=== PATIENT | male | born 1960 | race Caucasian/White ===

== ENCOUNTER 2020-11-21 10:14 | Outpatient (CLI) | payer BC, SELFPAY ==
--- NOTE | 2020-11-21 15:17 | ONC CON_ITS ---
Dr. Gee New Patient Note Patient: Manuel Roque Unit #: [id number]: 1960 Dicatated By: Tarun Gee M.D.Date of Visit: Nov 21, 2020 Onc MED New Patient/Consult Referring Physician: Dr. RINKU HINDS M.D. Chief Complaint: Lung cancer. History of Present Illness: This is a 60-year-old man with recently diagnosed adenocarcinoma involving the upper lobe of the right lung. On 08/02/2020 he was admitted to [facility] with non-ST elevation myocardial infarction. He underwent coronary angioplasty/placement. His evaluation at that time included CT pulmonary angiogram which showed a 1.5 cm nodule in the apex of the right upper lobe. An additional 6 mm nodule was noted in the right middle lobe. He underwent CT directed needle biopsy of the right lung nodule on 11/07/2020. He experienced no complications with the procedure. Pathology showed moderately differentiated adenocarcinoma consistent with lung primary. Immunohistochemical stains showed positive staining for CK7, TTF-1, and Napsin A. By IHC, 10% of tumor cells showed positive expression for PD-L1 (22C3). On further pathologic analysis, EGFR and BRAF V600 mutations were not identified, and the ROS1 gene rearrangement also was not identified. The result for the ALK gene rearrangement is still pending. He has been feeling pretty good generally. Overall he has slowed down a lot, but he continues to work and he has maintained normal activity. ECOG score is 0. He has good appetite and his weight has been stable. He does not have fever or night sweats. He does have some shortness of breath. He has cough productive of yellow mucus. He has not had chest pain or hemoptysis. He currently has no GI complaints. Bladder function remains adequate, though he says it is sometimes difficult to start voiding. He has no significant joint or bone pain. He does not complain of headache. He sometimes has dizziness, that has improved since his coronary stent procedure. He has no numbness/paresthesia or other focal neurologic symptoms. Past Medical History: His medical history includes chronic obstructive pulmonary disease, coronary artery disease, and hyperlipidemia. Past Surgical History: He underwent CT directed needle biopsy of right lung nodule on . He underwent coronary angioplasty/stent placement on 08/02/2020. His only other surgery was an excision of skin cancer from the left ear. Medications: Adult Aspirin EC Low Strength (81 mg) Tablet, enteric coated Oral daily, Atorvastatin Calcium (40 mg) Tablet Oral daily, Brilinta (90 mg) Tablet Oral b.i.d., Metoprolol Tartrate (12.5 mg) Tablet Oral daily, Multi For Him 50+ Tablet Oral daily Allergies: No Known Allergies. 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 He has a history of smoking 1 pack of cigarettes daily for 45 years. He has now cut down to 1/2 pack/day. He has had just occasional alcohol use. Family History: Father in a motor vehicle accident. Mother with heart disease at age 81. A 62-year-old brother has heart disease. Two sisters are in good health. Review Of Symptoms: Constitutional - He says his energy is about the same. He has slowed down a lot, but he still has normal activity. Appetite is good and his weight is stable. He has no fever or night sweats. ECOG score is 0, Eyes - No change in vision, ENMT - No hearing loss or tinnitus. He has some sinus congestion/drainage. No mouth sores. No sore throat or difficulty swallowing, Hematologic/Lymphatic - He does tend to bruise easily, Respiratory - He has some shortness of breath. He has cough productive of yellow mucus. No pleuritic pain or hemoptysis, Cardiovascular - No angina pain. No palpitations, Gastrointestinal - No nausea or vomiting. No heartburn or acid reflux. No diarrhea or constipation. No blood in the stool or black stools, Genitourinary (M) - No dysuria or hematuria. No urinary frequency. He sometimes has difficulty getting started. No urgency or incontinence, Musculoskeletal - No joint or bone pain, Integumentary - No skin rash or other skin changes, Neurologic - No headache. He sometimes has dizziness, but that has improved since his cardiac stent procedure. No numbness or tingling. No other focal neurologic symptoms, Psychiatric - He says he is always been nervous, but otherwise no anxiety or depression. No insomnia. Vital Signs: Performed on Nov 21, 2020 11:34: 0, 0, 0.00 (LOW), sq.m, 99 %, 59 /min (LOW), 16 /min, 117/70 mm(hg), 99.2 F (HIGH), and 158 lbs (HIGH). Physical Examination: Constitutional - He looks pretty good generally, Eyes - Sclerae nonicteric. Conjunctivae clear, ENMT - There is a surgical defect in the pinna of the left ear. There are no lesions noted in the oral cavity, Neck - No mass or thyromegaly, Hematologic/Lymphatic - No cervical, clavicular, or axillary adenopathy, Respiratory - Lungs are clear with diminished air movement bilaterally, Cardiovascular - Heart rhythm is regular. There is no murmur, gallop, or rub noted, Abdomen - Soft and non-tender. Liver and spleen are not enlarged. There is no abdominal mass or ascites noted and there is no inguinal adenopathy, Back/Spine - No spine or CVA tenderness noted, Extremities - No edema. Dorsalis pedis pulses are palpable bilaterally, Integumentary - No rashes. No suspicious skin lesions noted, Neurologic - No focal neurologic deficits noted. Problem List: 1. Moderately differentiated adenocarcinoma involving the upper lobe of the right lung. The diagnosis was confirmed by CT directed needle biopsy of right apical lung mass on 11/07/2020. 2. COPD. 3. Hyperlipidemia. 4. Coronary artery disease with history of non-ST elevation myocardial infarction requiring coronary angioplasty/stent placement on 08/02/2020. 5. He has a history of skin cancer excision from the left ear. Problems Addressed with this Encounter and Plan: 1. Moderately differentiated adenocarcinoma involving the upper lobe of the right lung. The diagnosis was confirmed by CT directed needle biopsy of right apical lung mass on 11/07/2020. He has not completed staging, but thus far it appears that he may have localized, stage IA2 disease (T1b, N0, M0). On my review of the CT scan, the lesion is in the apex of the right lung, but it does appear to be potentially resectable. As such, he will be scheduled now for staging PET/CT, and he also will need complete pulmonary function studies, as he does appear to have significant underlying COPD. We can then determine whether he is an appropriate candidate for surgical resection. If not, the lesion may be amenable to SBRT. 2. I did review the CT images with the patient and his . In addition to the lung nodule, the study does show significant COPD changes, and we also discussed the fact that it is imperative now that he stop smoking. Signed By: Tarun Gee M.D. <<Signature on File>>
== END 2020-11-21 10:15 | disposition home or self-care (01) ==
LOC: ONCMED 10:18
PROVIDERS: PCP Family Medicine; Visit Provider Internal Medicine Medical Oncology
DX: C34.11 Malignant neoplasm of upper lobe, right bronchus or lung (principal); J44.9 Chronic obstructive pulmonary disease, unspecified; F17.210 Nicotine dependence, cigarettes, uncomplicated; Z85.828 Personal history of other malignant neoplasm of skin
CPT/HCPCS: 99205

== ENCOUNTER → 2020-12-06 11:45 | Outpatient (BNVA) | payer BC, SELFPAY | PROVIDERS: PCP Family Medicine; Visit Provider Internal Medicine Medical Oncology | DX: Z01.811 Encounter for preprocedural respiratory examination (principal); Z20.822 Contact with and (suspected) exposure to COVID-19 | CPT/HCPCS: 87635 ==

== ENCOUNTER 2020-12-11 10:06 | Outpatient (CLI) | payer BC, SELFPAY ==
--- NOTE | 2020-12-11 10:48 | PFTS_ITS ---
Date of Study:12/11/20 Date of Dictation: MECHANICS: Forced vital capacity (FVC) is normal. Forced expiratory volume in one second (FEV1) is normal. FEV1/FVC is normal. FLOW VOLUME LOOP: Mild scooping at low lung volumes LUNG VOLUMES: Total lung capacity (TLC) is normal. Residual volume (RV) is normal. DIFFUSING CAPACITY FOR CARBON MONOXIDE: Normal. INTERPRETATION: The pulmonary function tests are normal. MTDD
== END 2020-12-11 10:07 | disposition home or self-care (01) ==
LOC: RT 10:07
PROVIDERS: PCP Family Medicine; Visit Provider Internal Medicine Medical Oncology
DX: C34.11 Malignant neoplasm of upper lobe, right bronchus or lung (principal)
CPT/HCPCS: 94010; 94726; 94729

== ENCOUNTER 2021-01-01 15:32 | Outpatient (CLI) | payer BC, SELFPAY ==
--- NOTE | 2021-01-01 18:34 | ONC FU_ITS ---
Dr. Gee Patient Follow-Up Note Patient: Manuel Roque Unit #: [id number]: 1960 Dicatated By: Tarun Gee M.D.Date of Visit:Jan 01, 2021 Onc Med Follow-up/Prog Note Chief Complaint: Lung cancer. History of Present Illness: This is a 60-year-old man with recently diagnosed adenocarcinoma involving the upper lobe of the right lung. On 08/02/2020 he was admitted to [facility] with non-ST elevation myocardial infarction. He underwent coronary angioplasty/placement. His evaluation at that time included CT pulmonary angiogram which showed a 1.5 cm nodule in the apex of the right upper lobe. An additional 6 mm nodule was noted in the right middle lobe. He underwent CT directed needle biopsy of the right lung nodule on 11/07/2020. He experienced no complications with the procedure. Pathology showed moderately differentiated adenocarcinoma consistent with lung primary. Immunohistochemical stains showed positive staining for CK7, TTF-1, and Napsin A. By IHC, 10% of tumor cells showed positive expression for PD-L1 (22C3). On further pathologic analysis, EGFR and BRAF V600 mutations were not identified, and the ROS1 gene rearrangement also was not identified. The result for the ALK gene rearrangement has not been reported. I had seen him initially on 11/21/2020. He had further evaluation with PET/CT on 11/29/2020. It showed an FDG avid spiculated nodule in the right apex measuring 1.6 x 1.3 cm, SUV 4.6, consistent with primary malignancy. Subcentimeter noncalcified pulmonary nodules were too small to characterize. FDG positive lymph nodes were noted in the right paratracheal, subaortic, and subcarinal territories. These were felt to be suspicious for metastatic nodes, though size and SUVs were not reported. There were no other areas of abnormal uptake. His pulmonary function studies on 12/11/2020 were normal. The FEV1 was 103% of predicted. He does report having some fatigue and some shortness of breath, but overall he feels good generally. His medical illnesses include hyperlipidemia, coronary artery disease, and COPD. He has a history of smoking 1 pack of cigarettes daily for 45 years. He has cut down now. Medications: Adult Aspirin EC Low Strength (81 mg) Tablet, enteric coated Oral daily, Atorvastatin Calcium (40 mg) Tablet Oral daily, Brilinta (90 mg) Tablet Oral b.i.d., Metoprolol Tartrate (12.5 mg) Tablet Oral daily, Multi For Him 50+ Tablet Oral daily Allergies: No Known Allergies. Vital Signs: Performed on Jan 01, 2021 15:46 Height - 155.6 in Weight - 61 lbs (LOW) BSA - 2.25 sq.m BMI - 1.77 (LOW) Temperature - 98.0 F (LOW) Pulse - 61 /min Respiration - 17 /min BP - 126/83 mm(hg) O2 Sat - 96 % Pain - 0 Problem List: 1. Moderately differentiated adenocarcinoma involving the upper lobe of the right lung. The diagnosis was confirmed by CT directed needle biopsy of right apical lung mass on 11/07/2020. 2. COPD. 3. Hyperlipidemia. 4. Coronary artery disease with history of non-ST elevation myocardial infarction requiring coronary angioplasty/stent placement on 08/02/2020. 5. He has a history of skin cancer excision from the left ear. Problems Addressed with this Encounter and Plan: Patient with moderately differentiated adenocarcinoma involving the upper lobe of the right lung. The diagnosis was confirmed by CT directed needle biopsy of right apical lung mass on 11/07/2020. On further pathologic analysis there were no actionable mutations identified. The tumor showed positive PD-L1 22C3 expression (10%). His staging PET/CT showed FDG avid spiculated nodule at the right lung apex measuring 1.6 x 1.3 cm, SUV 4.6. Bilateral subcentimeter pulmonary nodules are too small to characterize. FDG positive mediastinal lymph nodes were felt to be suspicious for metastatic involvement. There were no areas of abnormal uptake on that study. His pulmonary functions were normal. While the PET/CT findings are somewhat suspicious for mediastinal lymph node involvement, which would make him an operable, it is a nonspecific finding and it does need to be confirmed pathologically. As such, I am going to have the case presented at tumor board tomorrow. My expectation is that we will proceed with mediastinal lymph node sampling and possible resection. However, if the lymph nodes are positive, he would then be an appropriate candidate for chemoradiation. Signed By: Tarun Gee M.D. <<Signature on File>>
== END 2021-01-01 15:33 | disposition home or self-care (01) ==
LOC: ONCMED 15:35
PROVIDERS: PCP Family Medicine; Visit Provider Internal Medicine Medical Oncology
DX: C34.11 Malignant neoplasm of upper lobe, right bronchus or lung (principal); R93.89 Abnormal findings on diagnostic imaging of other specified body structures; R91.8 Other nonspecific abnormal finding of lung field; J44.9 Chronic obstructive pulmonary disease, unspecified; F17.210 Nicotine dependence, cigarettes, uncomplicated; E78.5 Hyperlipidemia, unspecified; I25.10 Atherosclerotic heart disease of native coronary artery without angina pectoris; I25.2 Old myocardial infarction; Z85.828 Personal history of other malignant neoplasm of skin
CPT/HCPCS: 99214

== ENCOUNTER → 2021-01-28 11:55 | Outpatient (BNVA) | payer BC, SELFPAY | PROVIDERS: PCP Family Medicine; Visit Provider Thoracic Surgery (Cardiothoracic Vascular Surgery) | DX: R91.8 Other nonspecific abnormal finding of lung field (principal); Z20.822 Contact with and (suspected) exposure to COVID-19 | CPT/HCPCS: 87635 ==

== ENCOUNTER 2021-02-02 05:35 | Day surgery (SDC) | payer BC, SELFPAY ==
[2021-01-28 11:02] VITALS: BMI 22.2
--- NOTE | 2021-01-28 11:37 | ANES.PREANE2 ---
Pre-Anesthetic Assessment Pre-Anesthetic Assessment: Height/Weight: Height 1.78 m Weight 70.307 kg Preop Diagnosis: Lung Adenocarcinoma/mediastinal adenopathy Proposed Procedure: Operation Date: 02/02/21 09:10 Proposed Procedures p Bronchoscopy(Not Applicable) - Zhang Albert MD Familial anesthetic complications: None Social: Social History: Tobacco and No alcohol Exam: Pre-Anes Outpt Exam: alert, oriented x 3, clear to auscultation bilaterally and regular rate & rhythm Airway: Cervical ROM: WNL MP: 3 Dentition: Other (missing teeth poor dentition) Pulmonary: Pulmonary: COPD Comments: Lung cancer CV/HEM: CV/HEM: [place] (July 2020 - placed stent, supposed to be on blood thinners for one year) Comments: Surgeon aware of stent placement in july Anesthetic Plan: ASA status: 3 Anesthesia: General Risk of > 500 ml blood loss (7ml/kg in children): No PFSH Anesthesia PFSH: Family History Brother CAD (coronary artery disease) Hypertension Mother Stroke Denies family history of Diabetes Cancer Social History Smoking and tobacco status: current every day smoker cigarettes Packs smoked per day: 1 Years cigarettes smoked: 48 Alcohol intake: current Alcohol intake frequency: holidays/special occasions only Data Anesthesia Cardiac Studies: No Data to Display
[2021-01-28 11:58] LABS: Basophils # 0.1 10^3/uL (0.0-0.1); Basophils % 0.8 %; Eosinophils # 0.2 10^3/uL (0.0-0.8); Eosinophils % 2.4 %; Hematocrit 47.3 % (42.0-52.0); Hemoglobin 15.5 g/dL (11.7-16.6); Lymphocytes # 1.6 10^3/uL (0.8-4.8); Lymphocytes % 21.7 %; Mean Corpuscular HGB Conc 32.8 g/dL (30.0-36.0); Mean Corpuscular Volume 88.4 fL (80-94); Mean Platelet Volume 10.5 fL (7.4-10.4); Monocytes # 0.5 10^3/uL (0.2-0.9); Monocytes % 6.8 %; Neutrophils # 4.88 10^3/uL (1.8-7.7); Nucleated Red Blood Cells % 0 %; Platelet Count 203 10^3/cmm (130-400); Red Blood Count 5.35 10^6/uL (4.1-5.3); Red Cell Distribution Width 14.9 % (12.1-15.1); White Blood Count 7.2 10^3/uL (4.0-10.0)
[2021-01-28 12:44] LABS: Add Urine Microscopic? NO; Bilirubin Urine Neg (Negative); Blood Urine Neg (Negative); Charge for UA Resulting for Rev; Glucose Urine UA Norm (Normal); Ketones Urine Negative (Negative); Leukocyte Esterase Urine Negative (Negative); Nitrate Urine Negative (Negative); Protein Urine Neg (Negative); Specific Gravity, Urine 1.005 (1.005-1.030); Urine Appearance Clear (CLEAR); Urine Color Straw (Yellow); Urobilinogen Urine Norm (Negative); pH Urine 7 (5-7)
[2021-01-28 13:30] LABS: Anion Gap 14.3 (5-19); Blood Urea Nitrogen 14 mg/dL (8-23); Carbon Dioxide 27 mmol/L (22-29); Chloride 103 mmol/L (98-107); Glomerular Filtration Rate 98.3 mL/min (90-130); Glucose 102 mg/dL (65-115); Osmolality Calculated 291 mOsm/kg (285-295); Potassium 4.3 mmol/L (3.5-5.1); Sodium 140 mmol/L (136-145)
[2021-01-28 16:00] LABS: INR 0.95 (0.8-1.2)
[2021-02-02] VITALS (8 sets, daily range): BP systolic 109–134; BP diastolic 50–78; PULSE 48–57; RESP 14–18; TEMP 36.2–36.5; O2SAT 94–99
--- NOTE | 2021-02-02 05:55 | ECG_ITS ---
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 Measurements Intervals Johnson Rate: 50 P: 76 CT: 176 QRS: 57 QRSD: 102 T: 44 QT: 418 QTc: 383 Interpretive Statements SINUS BRADYCARDIA No previous ECG available for comparison Electronically Signed On 02-04-2021 8:05:39 CDT by aHir Mujica M.D. [id number]
--- NOTE | 2021-02-02 06:30 | W.PM.OPSUD ---
Surgery/Procedure H&P Update DATE OF PROCEDURE: February 02, 2021 DATE H&P PERFORMED: 01/16/21 H&P UPDATE INFORMATION: I have reviewed H&P completed within last 30 days, I have examined patient prior to procedure and No changes to prior documentation PREOP DIAGNOSIS: Lung Adenocarcinoma/mediastinal adenopathy PRIMARY INDICATION FOR PROCEDURE: Biopsy-proven adenocarcinoma right upper lobe with increased PET scan activity and a subcarinal, subaortic, and right paratracheal lymph nodes. Long history of continued tobacco use. I discussed at length with Mr. Roque and his my recommendation for bronchoscopy and mediastinoscopy, particularly to attempt biopsy of the right paratracheal lymph node. My concern for mediastinal involvement was frankly discussed. If these biopsies eventually returned negative on final report, I do think consideration should be made to consider transbronchial biopsy of the subcarinal region and would refer to our pulmonary colleagues, to consider EBUS and biopsy. The activity in this mediastinal region is of such prominence and I think it would be important to attempt to absolutely rule out involvement prior to consideration for pulmonary resection. I do believe attempt with the largest volume of lymphoid biopsy would be through our current plans for mediastinoscopy today. Rationale for my process was discussed with Mr. Roque and his and they wish to proceed and are in agreement. Details of risk the procedure were frankly discussed including potential risk for pneumothorax or major bleeding requiring thoracotomy or sternotomy and attempt to control. Appropriate consents have been provided for review and signature. PLANNED PROCEDURE: Operation Date: 02/02/21 07:10 Proposed Procedures p Bronchoscopy(Not Applicable) - Zhang Albert MD s Mediastinoscopy(Not Applicable) - Zhang Albert MD
[2021-02-02] MEDS: sodium chloride 0.9% 1,000 ML 30 ML IV (06:38)
--- NOTE | 2021-02-02 06:53 | P.ANESUD_ITS ---
Pre-Anesthetic Update Pre-Anesthetic Assessment: Date of Surgery/Procedure: 02/02/21 Preop Kerry gnosis: Lung Adenocarcinoma/mediastinal adenopathy Proposed Procedure: Operation Date: 02/02/21 07:10 Proposed Procedures p Bronchoscopy(Not Applicable) - Zhang Albert MD s Mediastinoscopy(Not Applicable) - Zhang Albert MD Any changes to Pre-Anesthetic Assessment?: No Last Intake: Intake Last Liquid Date 02/01/21 Last Liquid Time 21:00 Last Solid Date 02/01/21 Last Solid Time 21:00 Vitals: Temperature 97.2 F L 02/02/21 06:09 Temperature Source Temporal Artery S can 02/02/21 06:09 Pulse Rate 56 L 02/02/21 06:09 Respiratory Rate 18 02/02/21 06:09 Blood Pressure 134/78 02/02/21 06:09 Blood Pressure Alejandra n 96 02/02/21 06:09 Pulse Oximetry 98 02/02/21 06:09 Oxygen Delivery Me thod 02/02/21 06:13 Exam: Pre-Anes Outpt Exam: alert, oriented x 3 and regular rate & rhythm Additional Exam Findings (including area of procedure): BBS decreased, occ. rhonchi Cardiac Studies: No Data to Display
[2021-02-02] MEDS: cetacaine Spray 5 gm Can 1 SPRAY TOPICAL (08:38)
--- NOTE | 2021-02-02 09:45 | PM.OP ---
Operative Report Date of procedure: February 02, 2021 Pre-op Diagnosis: Lung Adenocarcinoma/mediastinal adenopathy Post-op diagnosis: same Procedure Done: 1. Flexible diagnostic bronchoscopy 2. Mediastinoscopy lymph node biopsies in the precarinal, station 4R, and station 2R regions Specimens removed/disposition: Lymph node specimens from station 4R, station 2R, and precarinal region Surgeon: Zhang Albert Anesthesia: General Complications: None: Equal breath sounds postoperatively. Post procedure chest x-ray pending Condition: stable Disposition: PACU Brief History: Mr. Roque is a pleasant 60-year-old gentleman with a prior CT directed needle biopsy of a right upper lobe lung lesion which is returned adenocarcinoma. This was performed at outside institution. Subsequent PET scan revealed increased activity in this lesion as well as in mediastinal adenopathy including right hilar, pericarinal, station 4R, and subaortic. Bronchoscopy and mediastinoscopy recommended for appropriate lymph node sampling and attempt to confirm if there is advanced disease. Details the risk of procedure were carefully and frankly discussed. Proper consents were reviewed and signed. Procedure: 1. Flexible diagnostic bronchoscopy Procedure: Mr. Roque underwent general endotracheal anesthesia with an 8.0 endotracheal tube. With adequate anesthesia, flexible bronchoscope was inserted through the endotracheal tube. In a methodical fashion the trachea, gunjan, right main bronchus and associated lobar bronchi were inspected. In a similar fashion the left side was inspected. Secretions were cleared as needed to allow for adequate inspection. Secretions were relatively light and easily removed with suction. Findings: Main gunjan and secondary gunjan were sharp. Branching anatomy was normal. There was no evidence for submucosal infiltration or extrinsic compression. Mucosa was modestly friable. In a systematic fashion, the tracheobronchial tree was carefully inspected. No endobronchial lesions were identified. Once completed, the scope was withdrawn under direct visualization confirming cleared secretions and no substantial bleeding. Endoscopic photos were taken as required to document pathology. Mr. Roque was then repositioned in preparation for planned mediastinoscopy. #2. Mediastinoscopy with biopsy PROCEDURE: After positioning over protective padding, Mr. Roque was sterilely prepped and draped. A transverse incision was made above the sternal notch and carried down through the platysma. Cautery was utilized and large bridging veins were secured with clips and ligature prior to division. The pretracheal space was reached and enhanced the surgeon's finger. Mediastinoscope was inserted by direct vision and carefully advanced along the anterior plane of the trachea. Utilizing blunt dissection with suction, prominent lymph nodes at stations 4R and 2R were biopsied as well as lymph nodes in the precarinal position. These were dissected free by region. Aspiration was then carefully performed prior to biopsy under direct vision. Initial inspection was frozen analysis of the precarinal lymph nodes returned lymphoproliferative without clifton evidence for adenocarcinoma though, Dr. Epps, was concerned of potential secondary process. I did confer with him by phone as to the history and our operative findings. There was extensive adenopathy in all biopsy sites, increasing concerns for either metastatic disease from unknown primary, or another process in place. Substantial volume of lymphoid tissue from all areas was obtained and sent to pathology for further permanent analysis. Given his PET scan report, and the degree of adenopathy identified, I feel it prudent to wait for final pathologic report for confirmation that there is not mediastinal involvement with his right upper lobe lung primary. After adequate biopsy and tissue sampling, the patient was placed in reverse Trendelenburg position. Hemostasis was confirmed with the use of cautery, packing, and Surgicel. After confirmation of hemostasis, the scope was withdrawn under direct vision. The wound was then carefully irrigated and closed with 3-0 and 4-0 Vicryl suture. The skin was reapproximated in a subcuticular manner. Sterile dressing was applied. With equal breath sounds bilaterally, the patient was then awakened from anesthesia, extubated, and taken to the Postoperative Care Unit. Chest x-ray is currently pending. I did confer with pathology at the completion of the case and reviewed the results with Mr. Roque' . He will be scheduled to follow-up in my clinic in 1 week for incision inspection and review of final pathologic report.
--- NOTE | 2021-02-02 09:59 | XRR_ITS ---
PROCEDURE INFORMATION: Exam: XR Chest Exam date and time: 02/02/2021 10:08 AM Age: 60 years old Clinical indication: Screening exam; Other screening; Prior surgery; Additional info: Post op TECHNIQUE: Imaging protocol: XR of the chest. Views: 1 view. COMPARISON: CTA Chest w Abd/Pel w* 08/01/2020 10:49 PM FINDINGS: Lungs: Right lung apex scarring noted. No consolidation. Pleural spaces: Unremarkable. No pleural effusion. No pneumothorax. Heart/Mediastinum: Stable cardiomediastinal silhouette. Bones/joints: Old healed rib fracture deformity noted on the right. No acute osseous injury seen. XR/XR chest 1V portable [id number] IMPRESSION: No evidence of active cardiopulmonary disease.
--- NOTE | 2021-02-02 14:51 | ANE.PACU2 ---
Inpatient post-anesthesia follow up: Airway intact: Yes Vital signs: Temperature 97.7 F Pulse Rate 53 Respiratory Rate 16 Blood Pressure 124/71 Pulse Oximetry 96 Oxygen Delivery Me thod Room Air Oxygen Flow Rate 8 Fraction of Inspir ed Oxygen Hydration adequate: Yes Nausea and vomiting: No Pain level: 2 Mental status: Baseline
[2021-02-04 05:33] LABS: Miscellaneous Test See Scanned Lab Rpt
== END 2021-02-02 10:40 | disposition home or self-care (01) ==
PROVIDERS: PCP Family Medicine; Visit Provider Thoracic Surgery (Cardiothoracic Vascular Surgery)
PROC: 0BJ08ZZ Inspection of Tracheobronchial Tree, Via Natural or Artificial Opening Endoscopic (ICD-10-PCS; CPT 31622; principal; 2021-02-02 07:00)
PROC: 0WJC4ZZ Inspection of Mediastinum, Percutaneous Endoscopic Approach (ICD-10-PCS; CPT 39401; 2021-02-02 07:00)
DX: C34.90 Malignant neoplasm of unspecified part of unspecified bronchus or lung (principal); J44.9 Chronic obstructive pulmonary disease, unspecified; I25.2 Old myocardial infarction; F17.210 Nicotine dependence, cigarettes, uncomplicated; Z82.49 Family history of ischemic heart disease and other diseases of the circulatory system; Z82.3 Family history of stroke; Z79.82 Long term (current) use of aspirin
CPT/HCPCS: 31622; 39402; 71045; 80048; 81003; 85025; 85610; 86850; 86900; 86920; 88184; 88185; 88305; 93005; 96365; J0690; J1100; J2370; J2405; J2704; J2710; J3010; J3490; J7030

== ENCOUNTER → 2021-02-13 12:01 | Outpatient (BNVA) | payer BC, SELFPAY | PROVIDERS: PCP Family Medicine; Visit Provider Internal Medicine Critical Care Medicine | DX: Z01.812 Encounter for preprocedural laboratory examination (principal); Z20.822 Contact with and (suspected) exposure to COVID-19 | CPT/HCPCS: 87635 ==

== ENCOUNTER 2021-02-17 06:28 | Day surgery (SDC) | payer BC, SELFPAY ==
[2021-02-13 13:10] VITALS: BMI 22.6
[2021-02-17 06:43] VITALS: BP 118/77; PULSE 64; RESP 18; TEMP 36.6; O2SAT 98
[2021-02-17] MEDS: sodium chloride 0.9% 1,000 ML 30 ML IV (07:15)
--- NOTE | 2021-02-17 07:30 | P.ANESASSM_ITS ---
Pre-Anesthetic Assessment Pre-Anesthetic Assessment: Height/Weight: Height 1.78 m Weight 71.668 kg Temp Pulse Resp BP Pulse Ox 97.8 F 64 18 118/77 98 02/17/21 06:43 02/17/21 06:43 02/17/21 06:43 02/17/21 06:43 02/17/21 06:43 Preop Diagnosis: Lung Adenocarcinoma/mediastinal adenopathy Proposed Procedure: Operation Date: 02/17/21 07:50 Proposed Procedures p Ebus [id number] R91.1(Not Applicable) - Alyssia Griffiths MD Familial anesthetic complications: none Was Beta Bob taken within 24 hours: Yes Was Clonidine taken within 24 hours: N/A Last intake: Intake Last Liquid Date 02/16/21 Last Liquid Time 00:00 Last Solid Date 02/16/21 Last Solid Time 00:00 Last Intake: 23:59 Social: Social History: Tobacco and No alcohol Packs per day: 1ppd Pack years: 40+ Exam: Pre-Anes Outpt Exam: alert, oriented x 3, clear to auscultation bilaterally and regular rate & rhythm Airway: Submandibular: WNL Cervical ROM: WNL MP: 2 Dentition: Chipped and Loose Additional comments: multiple broken decayed missing Pulmonary: Pulmonary: COPD and YIN Comments: right upper lobe lung CA CV/HEM: CV/HEM: Anemia, HTN and FL (Jul 2020 with PTCA. NO CP/SOB since) : : None reported Hepatic: Hepatic: None reported GI: GI: None reported Metabolic: Metabolic: None reported Musc/skel: Musc/skel: Lower Back Pain and OA/DJD Neuropsych: Neuropsych: None reported Anesthetic Plan: ASA status: 3 Anesthesia: General PFSH Anesthesia PFSH: Medical History (Updated 02/13/21 @ 11:38 by Alyssia Griffiths MD) COPD (chronic obstructive pulmonary disease) Coronary artery disease Hyperlipidemia LDL goal <100 Lung cancer Skin cancer Surgical History (Updated 02/13/21 @ 11:32 by Alyssia Griffiths MD) History of bronchoscopy History of heart artery stent History of lung biopsy Family History Brother CAD (coronary artery disease) Hypertension Mother Stroke Denies family history of Diabetes Cancer Social History Smoking and tobacco status: current every day smoker cigarettes Packs smoked per day: 1 Years cigarettes smoked: 48 Second hand smoke exposure: Yes Smoking risk assessment/counseling performed?: Yes Alcohol intake: never Counseling given: No Counseling given: No Lives independently: Yes Household members: spouse Marital status: Current occupational status: employed Current occupation: [employer] 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
--- NOTE | 2021-02-17 07:41 | W.PM.OPSUD ---
Surgery/Procedure H&P Update DATE OF PROCEDURE: February 17, 2021 DATE H&P PERFORMED: 02/13/21 H&P UPDATE INFORMATION: I have reviewed H&P completed within last 30 days, I have examined patient prior to procedure and No changes to prior documentation PREOP DIAGNOSIS: Lung Adenocarcinoma/mediastinal adenopathy PRIMARY INDICATION FOR PROCEDURE: Evaluation of mediastinal hilar lymphadenopathy for metastatic involvement from diagnosed adenocarcinoma of the lung PLANNED PROCEDURE: Bronchoscopy with inspection of the airway, possible endobronchial sound guided transbronchial needle aspiration of lymph nodes and control of bleeding. Operation Date: 02/17/21 07:50 Proposed Procedures p Ebus [id number] R91.1(Not Applicable) - Biplab MD Aye
[2021-02-17] MEDS: lidocaine 1% INJ 20 mL XX (08:06)
[2021-02-17 08:47] VITALS: BP 109/75; PULSE 66; RESP 16; TEMP 36.9; O2SAT 98
[2021-02-17 08:52] VITALS: BP 117/76; PULSE 63; RESP 18; O2SAT 98
--- NOTE | 2021-02-17 08:53 | P.OP_ITS ---
Operative Report Date of procedure: February 17, 2021 Pre-op Diagnosis: Lung Adenocarcinoma/mediastinal adenopathy Post-op diagnosis: same Brief History: This is a 60-year-old gentleman coming in for bronchoscopic evaluation of subcarinal lymphadenopathy. The patient was diagnosed with adenocarcinoma of the right lung from transthoracic needle biopsy. He recently underwent Menest anoscopy of station 2R and 4R lymph nodes which were negative for any malignancy. However the patient has PET positive mediastinal and hilar lymphadenopathy and the endobronchial ultrasound-guided transbronchial needle aspiration of station 7 lymph node was to be done for further evaluation. Procedure: Name of the procedure: Bronchoscopy with inspection of the airway, endobronchial ultrasound-guided transbronchial needle aspiration of lymph nodes and control of bleeding. Indication: Evaluation of midsternal hilar lymphadenopathy Anesthesia: General anesthesia. Local anesthesia: The vocal cords, trachea, gunjan and the right and left mainstem bronchi were anesthetized with 1% lidocaine, 3 mL. Description of the procedure: The procedure was explained to the patient and the consent was obtained. The patient was brought to the OR. The patient underwent laryngeal mask airway placement for general anesthesia. Following induction of general anesthesia, the bronchoscope was advanced through the LMA. The vocal cords were anesthetized with 1% lidocaine, 3 mL was used. The upper trachea appeared to be normal. The lower trachea appeared to be normal as well. The gunjan was splayed. The gunjan, the right and left mainstem bronchi are anesthetized with 1% lidocaine. In a systematic manner bilateral bronchial tree was then examined. The bronchoscope was advanced into the left mainstem bron chus. The left upper lobe, lingula and left lower lobe bronchi were examined up to the third subsegmental level and no abnormalities were identified. The bronchoscope was then introduced into the right mainstem bronchus. The right upper lobe, right middle lobe and right lower lobe bronchi were examined up to the third subsegmental level and no abnormalities were identified. There was mucus throughout the lung. The endobronchial ultrasound was introduced through the LMA. Significant subcarinal lymphadenopathy was identified. No significant lymphadenopathy was identified in station 2R and 4R. Endobronchial survey transbronchial aspiration of station 7 lymph nodes are performed. Multiple samples were obtained. Samples: 1. The transbronchial needle aspiration of the subcarinal lymph node was sent for histopathology and cytology. Complications: There was no immediate complications. No significant bleeding.
[2021-02-17 08:58] VITALS: BP 109/70; PULSE 64; RESP 18; TEMP 36.8; O2SAT 98
[2021-02-17 09:05] VITALS: BP 108/76; PULSE 63; RESP 18; O2SAT 96
[2021-02-17 09:21] VITALS: BP 121/76; PULSE 66; RESP 18; O2SAT 96
--- NOTE | 2021-02-17 10:06 | PM.PACU ---
PACU note PACU note: Good resp effort VSS Post-Anesthesia Exam: awake and vital signs stable Disposition: discharged
--- NOTE | 2021-02-17 10:11 | ANE.PACU2 ---
Inpatient post-anesthesia follow up: Airway intact: Yes Vital signs: Temperature 98.2 F Pulse Rate 66 Respiratory Rate 18 Blood Pressure 121/76 Pulse Oximetry 96 Oxygen Delivery Me thod Room Air Oxygen Flow Rate Fraction of Inspir ed Oxygen Hydration adequate: Yes Nausea and vomiting: No Pain level: 1 Mental status: Baseline
== END 2021-02-17 09:25 | disposition home or self-care (01) ==
PROVIDERS: PCP Family Medicine; Visit Provider Internal Medicine Critical Care Medicine
PROC: BB4BZZZ Ultrasonography of Pleura (ICD-10-PCS; principal; 2021-02-17 07:50)
PROC: 0BJ08ZZ Inspection of Tracheobronchial Tree, Via Natural or Artificial Opening Endoscopic (ICD-10-PCS; CPT 31622; 2021-02-17 07:50)
DX: C34.90 Malignant neoplasm of unspecified part of unspecified bronchus or lung (principal); R59.0 Localized enlarged lymph nodes; I10 Essential (primary) hypertension; F17.210 Nicotine dependence, cigarettes, uncomplicated; J44.9 Chronic obstructive pulmonary disease, unspecified; I25.2 Old myocardial infarction; I25.10 Atherosclerotic heart disease of native coronary artery without angina pectoris; E78.5 Hyperlipidemia, unspecified; Z85.828 Personal history of other malignant neoplasm of skin; Z95.5 Presence of coronary angioplasty implant and graft; Z82.49 Family history of ischemic heart disease and other diseases of the circulatory system; Z79.82 Long term (current) use of aspirin
CPT/HCPCS: 31622; 31652; 80500; 88173; 88305; 96360; 96361; J2370; J2704; J7030

== ENCOUNTER 2021-04-07 13:19 | Outpatient (CLI) | payer BC, SELFPAY ==
--- NOTE | 2021-04-07 20:13 | ONC FU_ITS ---
Dr. Gee Patient Follow-Up Note Patient: Manuel Roque Unit #: [id number]: 1960 Dicatated By: Tarun Gee M.D.Date of Visit:Apr 07, 2021 Onc Med Follow-up/Prog Note Chief Complaint: Lung cancer. History of Present Illness: This is a 61 year-old man with adenocarcinoma involving the upper lobe of the right lung, by clinical evaluation stage IA2 (T1b, N0, M0). On 08/02/2020 he was admitted to [facility] with non-ST elevation myocardial infarction. He underwent coronary angioplasty/placement. His evaluation at that time included CT pulmonary angiogram which showed a 1.5 cm nodule in the apex of the right upper lobe. An additional 6 mm nodule was noted in the right middle lobe. He underwent CT directed needle biopsy of the right lung nodule on 11/07/2020. He experienced no complications with the procedure. Pathology showed moderately differentiated adenocarcinoma consistent with lung primary. Immunohistochemical stains showed positive staining for CK7, TTF-1, and Napsin A. By IHC, 10% of tumor cells showed positive expression for PD-L1 (22C3). On further pathologic analysis, EGFR and BRAF V600 mutations were not identified, and the ROS1 gene rearrangement also was not identified. The result for the ALK gene rearrangement has not been reported. I had seen him initially on 11/21/2020. He had further evaluation with PET/CT on 11/29/2020. It showed an FDG avid spiculated nodule in the right apex measuring 1.6 x 1.3 cm, SUV 4.6, consistent with primary malignancy. Subcentimeter noncalcified pulmonary nodules were too small to characterize. FDG positive lymph nodes were noted in the right paratracheal, subaortic, and subcarinal territories. These were felt to be suspicious for metastatic nodes, though size and SUVs were not reported. There were no other areas of abnormal uptake. His pulmonary function studies on 12/11/2020 were normal. The FEV1 was 103% of predicted. His medical illnesses include hyperlipidemia, coronary artery disease, and COPD. He has a history of smoking 1 pack of cigarettes daily for 45 years. He has cut down. INTERIM HISTORY: Given the PET/CT findings he was referred to Dr. Griffiths and on 02/17/2021 he underwent bronchoscopy/EBUS with FNA biopsy of station 7 lymph nodes. The bronchoscopy showed no evidence of endobronchial lesion and by ultrasound there was no significant lymphadenopathy identified in stations 2R and 4R. Pathology on the station 7 lymph node biopsy showed benign lymphoid tissue. A single cluster of ciliated reactive bronchial epithelium with mucin showed reactive atypia. There was no malignancy identified. He is seen now for a follow-up visit. With the negative mediastinal lymph node biopsy, he was deemed to be a candidate for surgical resection. At his request, arrangements were being made for a referral where the procedure to be done by [facility], specifically to [facility] in [place]. For some reason the appointment did not get scheduled. However, he has been feeling good generally. He has good energy/activity tolerance. ECOG score is 0. Appetite is good. He has no fever or night sweats. He does complain that his mouth gets dry at night, he does have some cough when he gets up in the morning. He has shortness of breath, but only with more strenuous activity. He has not been having chest pain. He has no GI or complaints. He has no significant joint or bone pain. He does not complain of headache or dizziness, and he has no focal neurologic symptoms. Medications: Adult Aspirin EC Low Strength (81 mg) Tablet, enteric coated Oral daily, Atorvastatin Calcium (40 mg) Tablet Oral daily, Brilinta (90 mg) Tablet Oral b.i.d., Metoprolol Tartrate (12.5 mg) Tablet Oral daily, Multi For Him 50+ Tablet Oral daily Allergies: No Known Allergies. Vital Signs: Performed on Apr 07, 2021 14:04 Height - 155.60 in Weight - 154 lbs (HIGH) BSA - 3.33 sq.m BMI - 4.47 (LOW) Temperature - 99.1 F (HIGH) Pulse - 69 /min Respiration - 18 /min BP - 120/74 mm(hg) O2 Sat - 98 % Pain - 0 Fatigue - 0 Physical Examination: Constitutional - He looks pretty good generally, Eyes - Sclerae nonicteric. Conjunctivae clear, ENMT - There is a surgical defect in the pinna of the left ear. There are no lesions noted in the oral cavity, Hematologic/Lymphatic - No cervical, clavicular, or axillary adenopathy, Respiratory - Lungs are clear with diminished air movement bilaterally, Cardiovascular - Heart rhythm is regular. There is no murmur, gallop, or rub noted, Abdomen - Soft. Liver and spleen are not enlarged. There is no abdominal mass or ascites noted and there is no inguinal adenopathy, Extremities - No edema, Neurologic - No focal neurologic deficits noted. Problem List: 1. Moderately differentiated adenocarcinoma involving the upper lobe of the right lung, by clinical evaluation stage IA2 (T1b, N0, M0). 2. COPD. 3. Hyperlipidemia. 4. Coronary artery disease with history of non-ST elevation myocardial infarction requiring coronary angioplasty/stent placement on 08/02/2020. 5. He has a history of skin cancer excision from the left ear. Problems Addressed with this Encounter and Plan: Patient with moderately differentiated adenocarcinoma involving the upper lobe of the right lung. The diagnosis was confirmed by CT directed needle biopsy of right apical lung mass on 11/07/2020. On further pathologic analysis there were no actionable mutations identified. The tumor showed positive PD-L1 22C3 expression (10%). His staging PET/CT showed FDG avid spiculated nodule at the right lung apex measuring 1.6 x 1.3 cm, SUV 4.6. Bilateral subcentimeter pulmonary nodules are too small to characterize. FDG positive mediastinal lymph nodes were felt to be suspicious for metastatic involvement. There were no areas of abnormal uptake on that study. His pulmonary functions were normal. With those findings, he underwent bronchoscopy/EBUS with FNA biopsy of station 7 lymph nodes on 02/17/2021. Pathology showed benign lymphoid tissue. On his endobronchial ultrasound no significant lymphadenopathy was identified in station 2R and 4R. At this point, his disease appears to be stage IA2 (T1b, N0, M0), and he appears to be an appropriate candidate for surgical resection. He is requesting to have the procedure done through a thoracic surgeon at [facility] in [place], and I will arrange for that referral to be done soon as possible. Signed By: Tarun Gee M.D. <<Signature on File>>
== END 2021-04-07 13:20 | disposition home or self-care (01) ==
PROVIDERS: PCP Family Medicine; Visit Provider Internal Medicine Medical Oncology
DX: C34.11 Malignant neoplasm of upper lobe, right bronchus or lung (principal); J44.9 Chronic obstructive pulmonary disease, unspecified; F17.210 Nicotine dependence, cigarettes, uncomplicated; E78.5 Hyperlipidemia, unspecified; I25.10 Atherosclerotic heart disease of native coronary artery without angina pectoris; I25.2 Old myocardial infarction; Z95.5 Presence of coronary angioplasty implant and graft; Z85.828 Personal history of other malignant neoplasm of skin; Z79.899 Other long term (current) drug therapy
CPT/HCPCS: 99214

== ENCOUNTER 2021-09-04 09:59 | Outpatient (CLI) | payer BC, SELFPAY ==
--- NOTE | 2021-09-04 | CT_ITS ---
WS: [id number] CT scan of the chest with and without IV contrast, additional two-dimensional coronal and sagittal re construction was performed. 09/04/2021 Clinical Data: MALIGNANT NEOPLASM OF UPPER LOBE Comparison: CTA chest, 08/01/2020, portable chest, 02/02/2021. DLP: 1466.[address] scans at [facility] use at least one of these dose optimization techniques: automated e xposure control; mA and/or kV adjustment per patient size (includes targeted exams where dose is matc hed to clinical indication); or iterative reconstruction. Findings: Postoperative changes in the right upper lobe with atelectasis and surgical clips can be seen. The ri ght lower lobe nodule is no longer present. No other lung nodules are seen. There are no masses or ef fusions. The heart size is normal with no pericardial effusion. The pulmonary arterial system and tho racic aorta demonstrate no dilatations. No pneumonia or pneumothorax is seen. There is minimal calcif ication of the wall of the descending thoracic aorta. The trachea is dilated and branches into the br onchi. There is no axillary or significant mediastinal adenopathy. The upper abdomen demonstrates a normal visualized liver, spleen, adrenal glands, gallbladder and hurst creas. There is a large amount of food in the stomach. The bones of the thorax show no abnormalities. CT/CT chest wo/w con [id number] Impression: 1. Postoperative atelectasis and volume loss in the right upper lobe with no re sidual nodules. 2. Negative for acute cardiopulmonary disease.
[2021-09-04 10:40] LABS: Blood Urea Nitrogen 14 mg/dL (8-23)
[2021-09-04] MEDS: iodixanol 320 mg/mL 100mL Btl IV (10:41)
== END 2021-09-04 10:00 | disposition home or self-care (01) ==
PROVIDERS: PCP Family Medicine; Visit Provider Internal Medicine Medical Oncology
DX: C34.11 Malignant neoplasm of upper lobe, right bronchus or lung (principal); J98.11 Atelectasis
CPT/HCPCS: 71270; 82565; 84520; Q9967

== ENCOUNTER 2021-09-21 07:54 | Outpatient (CLI) | payer BC, SELFPAY ==
--- NOTE | 2021-09-21 18:48 | ONC FU_ITS ---
Dr. Gee Patient Follow-Up Note Patient: Manuel Roque Unit #: [id number]: 1960 Dicatated By: Tarun Gee M.D.Date of Visit:Sep 21, 2021 Onc Med Follow-up/Prog Note Chief Complaint: Lung cancer. History of Present Illness: This is a 61 year-old man with adenocarcinoma involving the upper lobe of the right lung, by clinical evaluation stage IA2 (T1b, N0, M0) at initial diagnosis. On 08/02/2020 he was admitted to [facility] with non-ST elevation myocardial infarction. He underwent coronary angioplasty/placement. His evaluation at that time included CT pulmonary angiogram which showed a 1.5 cm nodule in the apex of the right upper lobe. An additional 6 mm nodule was noted in the right middle lobe. He underwent CT directed needle biopsy of the right lung nodule on 11/07/2020. He experienced no complications with the procedure. Pathology showed moderately differentiated adenocarcinoma consistent with lung primary. Immunohistochemical stains showed positive staining for CK7, TTF-1, and Napsin A. By IHC, 10% of tumor cells showed positive expression for PD-L1 (22C3). On further pathologic analysis, EGFR and BRAF V600 mutations were not identified, and the ROS1 gene rearrangement also was not identified. The result for the ALK gene rearrangement has not been reported. I had seen him initially on 11/21/2020. He had further evaluation with PET/CT on 11/29/2020. It showed an FDG avid spiculated nodule in the right apex measuring 1.6 x 1.3 cm, SUV 4.6, consistent with primary malignancy. Subcentimeter noncalcified pulmonary nodules were too small to characterize. FDG positive lymph nodes were noted in the right paratracheal, subaortic, and subcarinal territories. These were felt to be suspicious for metastatic nodes, though size and SUVs were not reported. There were no other areas of abnormal uptake. His pulmonary function studies on 12/11/2020 were normal. The FEV1 was 103% of predicted. Given the PET/CT findings he was referred to Dr. Griffiths and on 02/17/2021 he underwent bronchoscopy/EBUS with FNA biopsy of station 7 lymph nodes. The bronchoscopy showed no evidence of endobronchial lesion and by ultrasound there was no significant lymphadenopathy identified in stations 2R and 4R. Pathology on the station 7 lymph node biopsy showed benign lymphoid tissue. A single cluster of ciliated reactive bronchial epithelium with mucin showed reactive atypia. There was no malignancy identified. With those findings, his disease appeared to be Stage IA2 (T1b, N0, M0), and he was then seen by Dr. Jude Basurto in [place] for thoracic surgery consultation. On 06/11/2021 he underwent right thoracotomy with upper lobectomy and mediastinal lymph node sampling. Pathology showed invasive moderately differentiated adenocarcinoma measuring 5.5 x 3.7 x 1.7 cm. There was evidence of visceral pleural invasion. The bronchial and vascular lines of resection were free of neoplasm. There is no involvement in 9 peribronchial lymph nodes. There was also no involvement in one 10R lymph node, one 9R node, and one 11R node. As such, his disease was pathologic stage IIB (T3, N0, M0). His medical illnesses include hyperlipidemia, coronary artery disease, and COPD. He has a history of smoking 1 pack of cigarettes daily for 45 years. He has cut down. INTERIM HISTORY: He is seen for a follow-up visit. He has been feeling pretty good generally. He says his energy is about the same, and he pretty much has normal activity. ECOG score is 0. He has good appetite. He does not have fever or night sweats. He still has some numbness and burning in the right chest associated with his thoracotomy incision. He has just occasional cough. He does get short of breath with more strenuous activities, but his breathing is otherwise okay. He did quit smoking following the surgery. He apparently had atrial fibrillation postoperatively, and during his follow-up with Dr. Alicea he was found to have iron deficiency. He had very poor tolerance for oral iron supplementation. He complains that his stomach has not been the same since the surgery. Bowel and bladder function have been okay. He has no significant joint or bone pain. He does not complain of headache or dizziness, and he has no focal neurologic symptoms. Medications: Adult Aspirin EC Low Strength (81 mg) Tablet, enteric coated Oral daily, Atorvastatin Calcium (40 mg) Tablet Oral daily, Metoprolol Tartrate (12.5 mg) Tablet Oral daily, Multi For Him 50+ Tablet Oral daily Allergies: No Known Allergies. Vital Signs: Performed on Sep 21, 2021 08:14 Height - 55.6 in (LOW) Weight - 169.4 lbs (HIGH) BSA - 1.65 sq.m BMI - 38.53 (HIGH) Temperature - 97.9 F (LOW) Pulse - 60 /min Respiration - 17 /min BP - 170/74 mm(hg) (HIGH) O2 Sat - 99 % Pain - 0 Fatigue - 0 Physical Examination: Constitutional - He looks pretty good generally, Eyes - Sclerae nonicteric. Conjunctivae clear, ENMT - There is a surgical defect in the pinna of the left ear. There are no lesions noted in the oral cavity, Hematologic/Lymphatic - No cervical, clavicular, or axillary adenopathy, Respiratory - Lungs sound clear with diminished air movement bilaterally, worse on the right, Cardiovascular - Heart rhythm is regular. There is no murmur, gallop, or rub noted, Abdomen - Soft. Liver and spleen are not enlarged. There is no abdominal mass or ascites noted and there is no inguinal adenopathy, Extremities - No edema, Neurologic - No focal neurologic deficits noted. Problem List: 1. Moderately differentiated adenocarcinoma involving the upper lobe of the right lung, by clinical evaluation stage IA2 (T1b, N0, M0). 2. COPD. 3. Hyperlipidemia. 4. Coronary artery disease with history of non-ST elevation myocardial infarction requiring coronary angioplasty/stent placement on 08/02/2020. 5. He has a history of skin cancer excision from the left ear. Problems Addressed with this Encounter and Plan: Patient with moderately differentiated adenocarcinoma involving the upper lobe of the right lung. The diagnosis was confirmed by CT directed needle biopsy of right apical lung mass on 11/07/2020. On further pathologic analysis there were no actionable mutations identified. The tumor showed positive PD-L1 22C3 expression (10%). His staging PET/CT showed FDG avid spiculated nodule at the right lung apex measuring 1.6 x 1.3 cm, SUV 4.6. Bilateral subcentimeter pulmonary nodules are too small to characterize. FDG positive mediastinal lymph nodes were felt to be suspicious for metastatic involvement. There were no areas of abnormal uptake on that study. His pulmonary functions were normal. With those findings, he underwent bronchoscopy/EBUS with FNA biopsy of station 7 lymph nodes on 02/17/2021. Pathology showed benign lymphoid tissue. On his endobronchial ultrasound no significant lymphadenopathy was identified in station 2R and 4R. With those findings, he then had thoracic surgery consultation with Dr. Jude Basurto in [place]. On 06/11/2021 he underwent right thoracotomy with right upper lobectomy and mediastinal lymph node sampling. His disease was pathologic stage IIB (T3, N0, M0). There was visceral pleural involvement, but the resection margins were free. By staging criteria he would qualify for adjuvant chemotherapy, but I do not think it would be appropriate at this interval from his surgery. 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 As such, he will be followed on expectant management. I will see him again with surveillance chest CT in 3 months. Signed By: Tarun Gee M.D. <<Signature on File>>
== END 2021-09-21 07:55 | disposition home or self-care (01) ==
LOC: ONCMED 07:56
PROVIDERS: PCP Family Medicine; Visit Provider Internal Medicine Medical Oncology
DX: C34.11 Malignant neoplasm of upper lobe, right bronchus or lung (principal); J44.9 Chronic obstructive pulmonary disease, unspecified; E78.5 Hyperlipidemia, unspecified; I25.10 Atherosclerotic heart disease of native coronary artery without angina pectoris; I25.2 Old myocardial infarction; F17.210 Nicotine dependence, cigarettes, uncomplicated; Z79.82 Long term (current) use of aspirin; Z79.899 Other long term (current) drug therapy; Z85.828 Personal history of other malignant neoplasm of skin
CPT/HCPCS: 99214

== ENCOUNTER 2021-12-23 11:28 | Outpatient (CLI) | payer BC, SELFPAY ==
--- NOTE | 2021-12-23 11:44 | CT_ITS ---
WS: [id number] CT CHEST TECHNIQUE: Contrast enhanced CT of the chest with coronal and sagittal reformatted images. CLINICAL INFORMATION: LUNG CANCER COMPARISON: None. DLP: 728.[address] scans at [facility] use at least one of these dose optimization techniques: automated e xposure control; mA and/or kV adjustment per patient size (includes targeted exams where dose is matc hed to clinical indication); or iterative reconstruction. FINDINGS: Postoperative changes RIGHT upper lobectomy with subsegmental atelectasis and surgical clips. No evid ence of residual or recurrent disease. Peripheral fibrosis and subsegmental atelectasis in the RIGHT upper lobe anteriorly. A few micronodular tree-in-bud infiltrates likely inflammatory. A few calcifie d granulomas. Noncalcified nodule in the LEFT upper lobe measuring 4 mm is unchanged from August 01, 2020. A few additional tiny vague noncalcified subcentimeter pulmonary nodules are unchanged. No acute pulmonary infiltrates. Normal caliber thoracic aorta. Mild aortic calcification. No mediast inal or hilar lymphadenopathy. Normal caliber descending thoracic aorta. Celiac and SMA are patent. P roximal renal arteries are patent. No axillary lymphadenopathy. Portal vein and splenic vein are spears nt. Normal GE junction. Mild disc thickening of the RIGHT adrenal gland is unchanged. LEFT adrenal gl and is normal. Gallbladder is contracted. Chronic RIGHT rib fractures with callus formation. CT/CT chest w con* [id number] IMPRESSION: 1. Prior postoperative changes RIGHT upper lobectomy with parenchymal fibrosis and scarring. No evidence of progressed or recurrent disease. 2. Volume loss RIGHT lung. 3. Fibrosis and subsegmental atelectasis in the RIGHT upper lobe. 4. Stable 4 mm noncalcified nodule LEFT upper lobe. This is unchanged from the prior examinations including July 15, 2020. A few additional small hazy sub centimeter nodules in the LEFT upper lobe are unchanged. 5. No mediastinal or hilar lymphadenopathy.
[2021-12-23 12:57] LABS: Blood Urea Nitrogen 13 mg/dL (8-23); Glomerular Filtration Rate 85.5 mL/min (90-130)
== END 2021-12-23 11:29 | disposition home or self-care (01) ==
PROVIDERS: PCP Family Medicine; Visit Provider Internal Medicine Medical Oncology
DX: C34.11 Malignant neoplasm of upper lobe, right bronchus or lung (principal); J84.10 Pulmonary fibrosis, unspecified; J98.11 Atelectasis; R91.1 Solitary pulmonary nodule
CPT/HCPCS: 71260; 82565; 84520; Q9967

== ENCOUNTER 2021-12-24 10:24 | Outpatient (CLI) | payer BC, SELFPAY ==
[2021-12-24 10:58] LABS: Basophils # 0.1 10^3/uL (0.0-0.1); Basophils % 0.8 %; Eosinophils # 0.3 10^3/uL (0.0-0.8); Eosinophils % 4.1 %; Hematocrit 44.4 % (42.0-52.0); Hemoglobin 14.7 g/dL (11.7-16.6); Lymphocytes # 1.6 10^3/uL (0.8-4.8); Lymphocytes % 25.2 %; Mean Corpuscular HGB Conc 33.1 g/dL (30.0-36.0); Mean Corpuscular Hemoglobin 28.8 pg (28.0-34.0); Mean Corpuscular Volume 86.9 fl (80-94); Mean Platelet Volume 10.2 fL (7.4-10.4); Monocytes # 0.5 10^3/uL (0.2-0.9); Monocytes % 7.5 %; Neutrophils # 3.97 10^3/uL (1.8-7.7); Neutrophils % 62.1 %; Nucleated Red Blood Cells % 0 %; Platelet Count 199 10^3/cmm (130-400); Red Blood Count 5.11 10^6/uL (4.1-5.3); Red Cell Distribution Width 15.8 % (12.1-15.1); White Blood Count 6.4 10^3/uL (4.0-10.0)
[2021-12-24 11:10] LABS: Alanine Aminotransferase 28 U/L (0-41); Albumin Level 4.5 g/dL (3.5-5.2); Alkaline Phosphatase 81 IU/L (40-130); Anion Gap 12.6 (5-19); Aspartate Amino Transferase 24 U/L (0-40); Blood Urea Nitrogen 15 mg/dL (8-23); Calcium 9.8 mg/dL (8.5-10.5); Carbon Dioxide 27 mmol/L (22-29); Chloride 104 mmol/L (98-107); Globulin 3.5 g/dL (1.3-4.6); Glomerular Filtration Rate 114.3 mL/min (90-130); Glucose 102 mg/dL (65-115); Iron 84 ug/dL (59-158); Osmolality Calculated 289 mOsm/kg (285-295); Percent Saturation 33.4 % (20-50); Potassium 4.6 mmol/L (3.5-5.1); Sodium 139 mmol/L (136-145); Total Bilirubin 0.6 mg/dL (0.15-1.2); Total Iron Binding Capacity 251 mcg/dl; Unsaturated Iron Binding 167 ug/dL (112-347)
--- NOTE | 2021-12-26 10:31 | ONC FU_ITS ---
Dr. Gee Patient Follow-Up Note Patient: Manuel Roque Unit #: [id number]: 1960 Dicatated By: Tarun Gee M.D.Date of Visit:Dec 24, 2021 Onc Med Follow-up/Prog Note Chief Complaint: Lung cancer. History of Present Illness: This is a 61 year-old man with adenocarcinoma involving the upper lobe of the right lung, by clinical evaluation stage IA2 (T1b, N0, M0) at initial diagnosis. On 08/02/2020 he was admitted to [facility] with non-ST elevation myocardial infarction. He underwent coronary angioplasty/placement. His evaluation at that time included CT pulmonary angiogram which showed a 1.5 cm nodule in the apex of the right upper lobe. An additional 6 mm nodule was noted in the right middle lobe. He underwent CT directed needle biopsy of the right lung nodule on 11/07/2020. He experienced no complications with the procedure. Pathology showed moderately differentiated adenocarcinoma consistent with lung primary. Immunohistochemical stains showed positive staining for CK7, TTF-1, and Napsin A. By IHC, 10% of tumor cells showed positive expression for PD-L1 (22C3). On further pathologic analysis, EGFR and BRAF V600 mutations were not identified, and the ROS1 gene rearrangement also was not identified. The result for the ALK gene rearrangement has not been reported. I had seen him initially on 11/21/2020. He had further evaluation with PET/CT on 11/29/2020. It showed an FDG avid spiculated nodule in the right apex measuring 1.6 x 1.3 cm, SUV 4.6, consistent with primary malignancy. Subcentimeter noncalcified pulmonary nodules were too small to characterize. FDG positive lymph nodes were noted in the right paratracheal, subaortic, and subcarinal territories. These were felt to be suspicious for metastatic nodes, though size and SUVs were not reported. There were no other areas of abnormal uptake. His pulmonary function studies on 12/11/2020 were normal. The FEV1 was 103% of predicted. Given the PET/CT findings he was referred to Dr. Griffiths and on 02/17/2021 he underwent bronchoscopy/EBUS with FNA biopsy of station 7 lymph nodes. The bronchoscopy showed no evidence of endobronchial lesion and by ultrasound there was no significant lymphadenopathy identified in stations 2R and 4R. Pathology on the station 7 lymph node biopsy showed benign lymphoid tissue. A single cluster of ciliated reactive bronchial epithelium with mucin showed reactive atypia. There was no malignancy identified. With those findings, his disease appeared to be Stage IA2 (T1b, N0, M0), and he was then seen by Dr. Jude Basurto in [place] for thoracic surgery consultation. On 06/11/2021 he underwent right thoracotomy with upper lobectomy and mediastinal lymph node sampling. Pathology showed invasive moderately differentiated adenocarcinoma measuring 5.5 x 3.7 x 1.7 cm. There was evidence of visceral pleural invasion. The bronchial and vascular lines of resection were free of neoplasm. There is no involvement in 9 peribronchial lymph nodes. There was also no involvement in one 10R lymph node, one 9R node, and one 11R node. As such, his disease was pathologic stage IIB (T3, N0, M0). Surveillance chest CT on 09/04/2021 showed postoperative atelectasis and volume loss in the right upper lobe with no residual nodules, no significant mediastinal adenopathy, and no evidence for acute cardiopulmonary disease. I had seen him for a follow-up visit on 09/21/2021. Given the interval from his surgery, adjuvant chemotherapy was not recommended. His medical illnesses include hyperlipidemia, coronary artery disease, and COPD. He has a history of smoking 1 pack of cigarettes daily for 45 years. He has cut down. INTERIM HISTORY: Surveillance chest CT on 12/23/2021 showed postoperative changes of right upper lobectomy with parenchymal fibrosis and scarring, but with no evidence of progressed or recurrent disease. A 4 mm noncalcified left upper lobe pulmonary nodule appeared stable. He is seen for a follow-up visit. He has been feeling pretty good generally. He says his energy is okay. He stays pretty busy, and he has normal activity. ECOG score is 0. He has good appetite. He has no fever or night sweats. He has a little sinus drainage. He has not had sore mouth or throat. He does not complain of cough. He does have shortness of breath with more strenuous activities. He has not been having chest pain. He occasionally has nausea and he has occasional acid reflux. He complains that he belches a lot. Bowel and bladder function have been okay. 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 He has some headache with the neck pain. He has no other joint or bone pain, and he has no focal neurologic symptoms. Medications: Adult Aspirin EC Low Strength (81 mg) Tablet, enteric coated Oral daily, Atorvastatin Calcium (40 mg) Tablet Oral daily, Metoprolol Tartrate (12.5 mg) Tablet Oral daily, Multi For Him 50+ Tablet Oral daily Allergies: No Known Allergies. Vital Signs: Performed on Dec 24, 2021 12:52 Height - 55.60 in BP - 162/80 mm(hg) (HIGH) Performed on Dec 24, 2021 12:50 Height - 55.60 in Weight - 173.8 lbs (HIGH) BSA - 1.66 sq.m BMI - 39.53 (HIGH) Temperature - 98.3 F (LOW) Pulse - 80 /min Respiration - 16 /min BP - 163/85 mm(hg) (HIGH) O2 Sat - 96 % Pain - 0 Fatigue - 7 Physical Examination: Constitutional - He looks pretty good generally, Eyes - Sclerae nonicteric. Conjunctivae clear, ENMT - There is a surgical defect in the pinna of the left ear. There are no lesions noted in the oral cavity, Hematologic/Lymphatic - No cervical, clavicular, or axillary adenopathy, Respiratory - Lungs sound clear with diminished air movement bilaterally, worse on the right, Cardiovascular - Heart rhythm is regular. There is no murmur, gallop, or rub noted, Abdomen - Soft. Liver and spleen are not enlarged. There is no abdominal mass or ascites noted and there is no inguinal adenopathy, Extremities - No edema, Neurologic - No focal neurologic deficits noted. Lab/Imaging: Test performed on Dec 24, 2021 10:45 Iron 84 mcg/dL Sodium 139 mmol/L Iron Binding Capacity (TIBC) 251 mcg/dl Potassium 4.6 mmol/L % Iron Saturation 33.4 % Chloride 104 mmol/L CO2 27 mmol/L UIBC 167 mcg/dL Anion Gap 12.6 BUN 15 mg/dL Creatinine 0.7 mg/dL Cr Clearance (Est) 122.01 mL/min eGFR 114.3 mL/min Glucose 102 mg/dL Osmolality - Calculated 289 mOsm/kg Calcium 9.8 mg/dL Protein, Total 8.0 g/dL Albumin 4.5 g/dL Globulin 3.5 g/dL Bilirubin, Total 0.6 mg/dL ALT (SGPT) 28 U/L AST (SGOT) 24 U/L Alkaline Phosphatase 81 IU/L WBC 6.4 10 3/uL RBC 5.11 10 6/uL HGB 14.7 g/dL HCT 44.4 % MCV 86.9 fl MCH 28.8 pg MCHC 33.1 g/dL RDW 15.8 % Platelet Count 199 10 3/cmm MPV 10.2 fL Neutrophils 3.97 10 3/uL Lymphocytes 1.6 10 3/uL Monocytes 0.5 10 3/uL Eosinophils 0.3 10 3/uL Basophils 0.1 10 3/uL Neutrophil % 62.1 % Lymphocyte % 25.2 % Monocyte % 7.5 % Eosinophil % 4.1 % Basophils % 0.8 % NRBC % 0 % Problem List: 1. Moderately differentiated adenocarcinoma involving the upper lobe of the right lung, by clinical evaluation stage IA2 (T1b, N0, M0). 2. COPD. 3. Hyperlipidemia. 4. Coronary artery disease with history of non-ST elevation myocardial infarction requiring coronary angioplasty/stent placement on 08/02/2020. 5. He has a history of skin cancer excision from the left ear. Problems Addressed with this Encounter and Plan: Patient with moderately differentiated adenocarcinoma involving the upper lobe of the right lung. The diagnosis was confirmed by CT directed needle biopsy of right apical lung mass on 11/07/2020. On further pathologic analysis there were no actionable mutations identified. The tumor showed positive PD-L1 22C3 expression (10%). His staging PET/CT showed FDG avid spiculated nodule at the right lung apex measuring 1.6 x 1.3 cm, SUV 4.6. Bilateral subcentimeter pulmonary nodules are too small to characterize. FDG positive mediastinal lymph nodes were felt to be suspicious for metastatic involvement. There were no areas of abnormal uptake on that study. His pulmonary functions were normal. With those findings, he underwent bronchoscopy/EBUS with FNA biopsy of station 7 lymph nodes on 02/17/2021. Pathology showed benign lymphoid tissue. On his endobronchial ultrasound no significant lymphadenopathy was identified in station 2R and 4R. With those findings, he then had thoracic surgery consultation with Dr. Jude Basurto in [place]. On 06/11/2021 he underwent right thoracotomy with right upper lobectomy and mediastinal lymph node sampling. His disease was pathologic stage IIB (T3, N0, M0). There was visceral pleural involvement, but the resection margins were free. By staging criteria he would qualify for adjuvant chemotherapy, but I do not think it would be appropriate at this interval from his surgery. As his tumor was previously confirmed to be EGFR wild-type, there was no other adjuvant therapy indicated. As such, expectant management was recommended. Thus far during follow-up his clinical status has remained stable and there has been no evidence of recurrence on surveillance CT scans. He continues on observation/expectant management. I will see him again in 6 months. Signed By: Tarun Gee M.D. <<Signature on File>>
== END 2021-12-24 10:25 | disposition home or self-care (01) ==
PROVIDERS: PCP Family Medicine; Visit Provider Internal Medicine Medical Oncology
DX: C34.11 Malignant neoplasm of upper lobe, right bronchus or lung (principal); J44.9 Chronic obstructive pulmonary disease, unspecified; E78.5 Hyperlipidemia, unspecified; I25.10 Atherosclerotic heart disease of native coronary artery without angina pectoris; I25.2 Old myocardial infarction; Z95.5 Presence of coronary angioplasty implant and graft; Z85.828 Personal history of other malignant neoplasm of skin; Z79.899 Other long term (current) drug therapy
CPT/HCPCS: 36415; 80053; 83540; 83550; 85025; 99214

== ENCOUNTER 2024-01-10 05:31 | Day surgery (SDC) | payer BC, SELFPAY ==
[2024-01-10] VITALS (12 sets, daily range): BP systolic 123–155; BP diastolic 76–118; PULSE 62–86; RESP 6–25; TEMP 36.2–36.4; O2SAT 95–99; BMI 18.2
[2024-01-10] MEDS: sodium chloride 0.9% 1,000 ML 30 ML IV (06:31)
[2024-01-10] MEDS: ceFAZolin 2,000 MG in sodium chloride 0.9% (plus) 50 ML 100 MG IV (07:00)
--- NOTE | 2024-01-10 07:00 | W.PM.OPSUD ---
Surgery/Procedure H&P Update DATE OF PROCEDURE: January 10, 2024 DATE H&P PERFORMED: 12/26/23 H&P UPDATE INFORMATION: I have reviewed H&P completed within last 30 days, I have examined patient prior to procedure and No changes to prior documentation PLANNED PROCEDURE: Operation Date: 01/10/24 07:00 Proposed Procedures p Laparoscopic Inguinal Hernia Repair w/Mesh(Bilateral) - Felipe Rushing DO
--- NOTE | 2024-01-10 07:02 | P.ANESASSM_ITS ---
Pre-Anesthetic Assessment Height/Weight: Height 1.78 m Weight 57.606 kg Temp Pulse Resp BP Pulse Ox O2 Del Method 97.6 F 86 18 147/97 98 Room Air 01/10/24 06:01 01/10/24 06:01 01/10/24 06:01 01/10/24 06:01 01/10/24 06:01 01/10/24 06:09 Operation Date: 01/10/24 07:00 Proposed Procedures p Laparoscopic Inguinal Hernia Repair w/Mesh(Bilateral) - Felipe Rushing DO Familial anesthetic complications: none Was Beta Bob taken within 24 hours: N/A Was Clonidine taken within 24 hours: N/A Last intake: Intake Last Liquid Date 01/09/24 Last Liquid Time 20:00 Last Solid Date 01/09/24 Last Solid Time 20:00 Social No alcohol and No tobacco Exam alert, oriented x 3 and regular rate & rhythm Airway Submandibular: within normal limits Cervical ROM: within normal limits Dentition: chipped (Multiple chipped and broken) Pulmonary Chronic Obstructive Pulmonary Disease CV/HEM Coronary Artery Disease (stents), Hypertension and Myocardial Infarction GI Gastroesophageal Reflux Disease Anesthetic Plan ASA status: 3 Anesthesia: General Medications/Allergies Home Medications Medication Instructions Recorded Confirmed Last Taken Type aspirin 81 mg tablet,delayed 81 mg PO DAILY 01/16/21 01/09/24 01/08/24 History release atorvastatin 40 mg tablet 40 mg PO DAILY 01/16/21 01/09/24 01/09/24 History metoprolol tartrate 25 mg tablet 12.5 mg PO DAILY 01/16/21 01/09/24 01/09/24 History multivitamin (Multiple Vitamins 1 tab PO DAILY 01/16/21 01/09/24 01/09/24 History tablet) linaclotide 290 mcg capsule 290 mcg PO DAILY 30 days #30 caps 12/26/23 01/09/24 01/09/24 Rx (Linzess) pantoprazole 40 mg tablet,delayed 40 mg PO BID 12/26/23 01/09/24 01/08/24 Histo ry release Allergies Allergy/AdvReac Type Severity Reaction Status Date / Time No Known Allergies Allergy Verified 12/26/23 09:49 Current Medications Generic Name Dose Route Start Last Admin Trade Name Freq PRN Reason Stop Dose Admin Sodium Chloride 1,000 mls @ 30 mls/hr 01/10/24 06:00 01/10/24 06:31 Sodium Chloride 0.9% IV 01/11/24 05:59 30 mls/hr .Q24H OFE Administration PFSH Anesthesia Medical History Lung cancer COPD (chronic obstructive pulmonary disease) Hyperlipidemia LDL goal <100 Coronary artery disease Skin cancer Surgical History History of lung biopsy History of heart artery stent History of bronchoscopy Family History Brother CAD (coronary artery disease) Hypertension Mother Stroke Denies family history of Diabetes Cancer Social History Smoking and tobacco/nicotine status: former use of tobacco/nicotine Second hand smoke exposure: Yes Alcohol intake: never Substance/Drug Use: never Lives independently: Yes Household members: spouse Marital status: Current occupational status: employed Current occupation: [employer] 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
[2024-01-10] MEDS: lidocaine-epi 2% PF 1:200,000 20 mL SDV XX (07:39)
--- NOTE | 2024-01-10 08:34 | PM.OP ---
Operative Report Date of procedure: January 10, 2024 Surgeon: Felipe Rushing DO Brief History: Is a 63-year-old gentleman presented my office with bilateral inguinal hernias. Laparoscopic repair with mesh was indicated. The risk and benefits were explained and documented. Procedure: Pre-op diagnosis: Bilateral inguinal hernias Post-op diagnosis: Bilateral indirect inguinal hernias Procedure done: Laparoscopic (TEPP) repair of right inguinal hernia with mesh Laparoscopic (TEPP) repair of left inguinal hernia with mesh Implants: Left and right extra-large 3D max Bard mesh is Specimens removed/disposition: None Surgeon: Felipe Rushing DO Anesthesia: General and Local Estimated blood loss (mL): 5 Complications: None apparent Procedure: Patient was wheeled into the operative room and placed on the OR table in a supine position. Abdomen was inspected prepped and draped in usual sterile fashion. Time-out was performed and all present were in agreement. A 15 blade scalpel was used to make 1.2 centimeter incision infraumbilically. Combination of sharp and blunt dissection was performed down to the anterior rectus sheath which was opened sharply. The dissecting balloon was then inserted into the space of Retzius and blown up. We put the camera into the port and identified that we were in the correct space. I then placed 2 5 millimeter trocars suprapubically in the midline. I then used endokitners to bluntly dissect in the space of Retzius out laterally. An indirect inguinal hernia was identified on the right. Blunt dissection was performed to dissect down the hernia sac until the vas deferens dove medially. An extra-large 3D max Bard right inguinal mesh was then placed into the space of Retzius. The mesh was unrolled and tacked once medially at the pubic bone. The mesh laid out nicely over the spermatic cord. An indirect inguinal hernia was identified on the left. Blunt dissection was performed to dissect down the hernia sac until the vas deferens dove medially. An extra-large 3D max Bard left inguinal mesh was then placed into the space of Retzius. The mesh was unrolled and tacked once medially at the pubic bone. The mesh laid out nicely over the spermatic cord. Hernia sacs were held underneath the meshes as the insufflation was released. Incisions were closed with 4 O Vicryl in a subcuticular interrupted fashion. Skin glue was applied. Patient tolerated the procedure well.
[2024-01-10] MEDS: fentaNYL 50 mcg/mL INJ 2mL IVP (08:59)
[2024-01-10] MEDS: HYDROcodone-acetaminophen 5-325 mg Tablet 1 TAB PO (09:58)
--- NOTE | 2024-01-10 14:58 | ANE.PACU2 ---
Inpatient post-anesthesia follow up: Airway intact: Yes Vital signs: Temperature 97.1 F Pulse Rate 66 Respiratory Rate 16 Blood Pressure 126/88 Pulse Oximetry 99 Oxygen Delivery Me thod Room Air Oxygen Flow Rate Fraction of Inspir ed Oxygen Hydration adequate: Yes Nausea and vomiting: No Pain level: 2 Mental status: Baseline
== END 2024-01-10 10:15 | disposition home or self-care (01) ==
PROVIDERS: PCP Family Medicine; Visit Provider Surgery
PROC: (CPT 49650; principal; 2024-01-10 07:00)
DX: K40.20 Bilateral inguinal hernia, without obstruction or gangrene, not specified as recurrent (principal); J44.9 Chronic obstructive pulmonary disease, unspecified; I25.10 Atherosclerotic heart disease of native coronary artery without angina pectoris; Z95.5 Presence of coronary angioplasty implant and graft; I10 Essential (primary) hypertension; I25.2 Old myocardial infarction; K21.9 Gastro-esophageal reflux disease without esophagitis; Z79.82 Long term (current) use of aspirin; Z85.118 Personal history of other malignant neoplasm of bronchus and lung; E78.5 Hyperlipidemia, unspecified; Z85.828 Personal history of other malignant neoplasm of skin
CPT/HCPCS: 49650; 51702; C1781; J0690; J1100; J1170; J1885; J2371; J2405; J2704; J2710; J3010; J3490; J7030

== ENCOUNTER 2024-01-13 12:59 | Emergency (ER) | payer BC, SELFPAY ==
[2024-01-13 13:09] VITALS: BP 169/108; PULSE 97; RESP 18; TEMP 36.7; O2SAT 97
--- NOTE | 2024-01-13 13:24 | ED_ITS ---
HPI - Abdominal Pain 2 General: Chief Complaint: Abdominal Pain Stated Complaint: Dizzy, High BP Time Seen by Provider: 01/13/24 13:19 History of Present Illness: 63-year-old man who presents emergency r oom with abdominal pain. Also says has been feeling lightheaded and his blood pressure was elevated this morning. He had a hernia repair last week with Dr. Rushing here. No issues with the surgery. He says he is been having good bowel movements. No urinary symptoms. He says he is having the exact same pain he was having for the last 3 months and was hoping that the surgery would resolve this pain but it did not. He is having pain in his low back and in his suprapubic area. No nausea or vomiting. No chest pain. No shortness of breath. No fevers. Review of Systems 2 Narrative: Constitutional symptoms: Negative except as documented in HPI. Skin symptoms: Negative except as documented in HPI. Eye symptoms: Negative except as documented in HPI. ENMT symptoms: Negative except as documented in HPI. Respiratory symptoms: Negative except as documented in HPI. Cardiovascular symptoms: Negative except as documented in HPI. Gastrointestinal symptoms: Negative except as documented in HPI. Genitourinary symptoms: Negative except as documented in HPI. Musculoskeletal symptoms: Negative except as documented in HPI. Neurologic symptoms: Negative except as documented in HPI. Psychiatric symptoms: Negative except as documented in HPI. Endocrine symptoms: Negative except as documented in HPI. PFSH ED 2 PFSH: Medical History Lung cancer COPD (chronic obstructive pulmonary disease) Hyperlipidemia LDL goal <100 Coronary artery disease Skin cancer Surgical History History of lung biopsy History of heart artery stent History of bronchoscopy Family History Brother CAD (coronary artery disease) Hypertension Mother Stroke Denies family history of Diabetes Cancer Social History Smoking and tobacco/nicotine status: former use of tobacco/nicotine Second hand smoke exposure: Yes Alcohol intake: never Substance/Drug Use: never Lives independently: Yes Household members: spouse Marital status: Current occupational status: employed Current occupation: [employer] 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 Skin: Warm, dry. Surgical site incisions are clean dry and intact. There is skin glue present. No redness. No edema. No warmth. No signs of infection. Head: Normocephalic, atraumatic. Neck: Supple, trachea midline. Eye: Extraocular movements are intact. Ears, nose, mouth and throat: mucosa moist. Cardiovascular: Regular, Normal peripheral perfusion. Respiratory: Lungs are clear to auscultation, respirations are non-labored, breath sounds are equal, Symmetrical chest wall expansion. Gastrointestinal: Soft, Nontender, Non distended, Normal bowel sounds. Musculoskeletal: Normal ROM, no deformity. Neurological: Alert and oriented, No focal neurological deficit observed. Psychiatric: Cooperative, appropriate mood & affect. Course 2 Vital Signs: Vital signs: Vital Signs Temperature 98.1 F 01/13/24 13:09 Pulse Rate 97 01/13/24 13:09 Respiratory Rate 18 01/13/24 13:09 Blood Pressure 169/108 01/13/24 13:09 Pulse Oximetry 97 01/13/24 13:09 Oxygen Delivery Me thod Room Air 01/13/24 13:09 MDM - Abdominal Pain Medical Decision Making Medical decision making: Differential diagnosis including but not limited to and based on the above HPI, review of systems and physical exam: Patient's primary concern is for his blood pressure and dizziness today. We discussed that likely will not solve his chronic abdominal pain but we will do our best. Checking a urine because it is suprapubic in his back. Would have concern for urinary tract infection. Basic lab work. An EKG and a troponin. Orders placed to evaluate differential diagnosis based on the above differential, HPI and physical exam Lab Review: Laboratory results were reviewed and interpreted by myself the emergency room physician. Lab review is unremarkable. No leukocytosis. No anemia. No renal failure. BUN and creatinine are 6 and 0.4. Urinalysis is clear. EKG: Time 1335 PM rate 88 normal sinus rhythm, No ST-T changes, no ectopy, normal VA & QRS intervals, This was reviewed and interpreted by myself the ER physician at 1337 PM. Reexamination: Patient remained stable. No increased work of breathing. No altered mental status. Lab Data 01/13/24 14:22 01/13/24 14:22 Labs/Radiology: Laboratory Results WBC 5.33 10^3/uL (3.29-11.43) 01/13/24 14:22 RBC 4.48 10^6/uL (3.85-5.65) 01/13/24 14:22 Hgb 12.80 g/dL (11.27-16.99) 01/13/24 14:22 Hct 38.3 % (37-53) 01/13/24 14:22 MCV 85.5 fl (82-101) 01/13/24 14:22 MCH 28.6 pg (27-33) 01/13/24 14: MCHC 33.4 g/dL (30-55) 01/13/24 14: RDW 14.1 % (12.1-15.1) 01/13/24 14:22 Plt Count 272 10^3/cmm (157-399) 01/13/24 14:22 MPV 10.2 fL (7.4-10.4) 01/13/24 14: Neut % (Auto) 64.1 % 01/13/24 14: Lymph % (Auto) 20.3 % 01/13/24 14: Potter % (Auto) 9.0 % 01/13/24 14: Eos % (Auto) 6.0 % 01/13/24 14: Baso % (Auto) 0.4 % 01/13/24 14: Neut # (Auto) 3.42 10^3/uL (1.8-7.7) 01/13/24 14:22 Lymph # (Auto) 1.1 10^3/uL (0.8-4.8) 01/13/24 14:22 Potter # (Auto) 0.5 10^3/uL (0.2-0.9) 01/13/24 14: Eos # (Auto) 0.3 10^3/uL (0.0-0.8) 01/13/24 14:22 Baso # (Auto) 0.0 10^3/uL (0.0-0.1) 01/13/24 14: Nucleated RBC % (auto) 0 % 01/13/24 14:22 Nucleated RBCs # 0.0 /100WBC 01/13/24 14:22 Sodium 139 mmol/L (136-145) 01/13/24 14:22 Potassium 3.1 mmol/L (3.5-5.1) L 01/13/24 14:22 Chloride 100 mmol/L (98-107) 01/13/24 14:22 Carbon Dioxide 31 mmol/L (22-29) H 01/13/24 14:22 Anion Gap 11.1 (5-19) 01/13/24 14:22 BUN 6 mg/dL (8-23) L 01/13/24 14:22 Creatinine 0.4 mg/dL (0.7-1.2) L 01/13/24 14:22 GFR Calculation 216.6 mL/min (90-130) H 01/13/24 14:22 Glucose 88 mg/dL (65-115) 01/13/24 14:22 Calculated Osmolality 285 mOsm/kg (285-295) 01/13/24 14:22 Calcium 9.2 mg/dL (8.5-10.5) 01/13/24 14:22 Total Bilirubin 0.6 mg/dL (0.15-1.2) 01/13/24 14:22 AST 24 U/L (0-40) 01/13/24 14:22 ALT 14 U/L (0-41) 01/13/24 14:22 Alkaline Phosphatase 71 U/L (40-130) 01/13/24 14:22 Troponin T Baseline 11 ng/L (0-15) 01/13/24 14:22 Total Protein 7.2 g/dL (6.6-8.7) 01/13/24 14:22 Albumin 3.8 g/dL (3.5-5.2) 01/13/24 14:22 Globulin 3.4 g/dL (1.3-4.6) 01/13/24 14:22 Urine Color Yellow (Yellow) 01/13/24 13:50 Urine Appearance Clear (CLEAR) 01/13/24 13:50 Urine pH 8 (5-7) H 01/13/24 13:50 Ur Specific [place] 1.015 (1.005-1.030) 01/13/24 13:50 Urine Protein Neg (Negative) 01/13/24 13:50 Urine Glucose (UA) Norm (Normal) 01/13/24 13:50 Urine Ketones Negative (Negative) 01/13/24 13:50 Urine Blood Neg (Negative) 01/13/24 13:50 Urine Nitrate Negative (Negative) 01/13/24 13:50 Urine Bilirubin Neg (Negative) 01/13/24 13:50 Prot Sulfosalicylic Acd Negative (Negative) 01/13/24 13:50 Urine Urobilinogen Norm mg/dL (Negative) 01/13/24 13:50 Ur Leukocyte Esterase Negative (Negative) 01/13/24 13:50 Urine RBC None /hpf (0-2) 01/13/24 13:50 Urine WBC None /hpf (0-5) 01/13/24 13:50 Ur Squamous Epith Cells None /hpf (0-5) 01/13/24 13:50 Amorphous Sediment Not Reportable 01/13/24 13:50 Urine Bacteria None /hpf (NONE) 01/13/24 13:50 No radiology studies performed this visit Other Data Assessment and plan: - Discharged home - Discussed plan with patient. Answered any questions. - Evaluation and treatment of this problem were appropriate in the emergency setting. Discharge Plan Discharge Patient Disposition: Home Clinical Impression: Hypertension, Light-headedness Condition: Stable Prescriptions: No Action aspirin 81 mg tablet,delayed release (DR/EC) 81 mg PO DAILY atorvastatin 40 mg tablet 40 mg PO DAILY metoprolol tartrate 25 mg tablet 12.5 mg PO DAILY multivitamin [Multiple Vitamins] Tablet 1 tab PO DAILY pantoprazole 40 mg tablet,delayed release (DR/EC) 40 mg PO BID Linzess 290 mcg capsule 290 mcg PO DAILY 30 Days Qty: 30 11RF ibuprofen 800 mg tablet 800 mg PO Q8H PRN (Reason: Pain) nitroglycerin 0.4 mg tablet, sublingual See Rx Instructions .ROUTE .COMPLEX Rx Instructions: DISSOLVE ONE TABLET UNDER THE TONGUE EVERY 5 MINUTES NEEDED FOR CHEST PAIN. DO NOT EXCEED A TOTAL OF 3 DOSES IN 15 MINUTES hydrocodone-acetaminophen 5-325 mg tablet 1 tab PO Q6H PRN (Reason: pain) Qty: 20 0RF docusate sodium [Colace] 100 mg capsule 100 mg PO BID Qty: 14 0RF polyethylene glycol 3350 [Miralax] 17 gram/dose powder 17 g PO DAILY 6 Days Qty: 119 0RF Discharge Orders: Discharge ED (Routine); Ordered 01/13/24 Ordered By: Benita Nolasco Referrals: Neal Alicea [Primary Care Provider] - 4-7 days (You have been screened and evaluated and felt safe for discharge. Health conditions do change or evolve sometimes and as such it is important that you follow up with your Primary Doctor to be re checked, 3-5 days is a general good time frame for follow up. You are always welcome to return to the ED for re assessment if your symptoms are worsening or you have new concerns) Discharge Diet: Advance as tolerated Discharge Activity: Resume usual activity Patient Instructions: Opioid Safety, Pain Management Coding Level of Care Code ED Decontamination Technician for Arianna Sorensen
--- NOTE | 2024-01-13 13:35 | ECG_ITS ---
[facility] Test Date: 2024-01-13 Pat Name: Manuel Roque Department: Room: Gender: Male Practice Management Consultant: : 1960 Requested By: Benita Resendiz Order Number: [id number] Joshi MD: Hair Mujica M.D. Measurements Intervals [place] Rate: 88 P: 46 WI: 153 QRS: 30 QRSD: 102 T: 68 QT: 366 QTc: 445 Interpretive Statements SINUS RHYTHM POSSIBLE LEFT ATRIAL ENLARGEMENT [-0.1mV P-WAVE IN V1/V2] INCOMPLETE RIGHT BUNDLE BRANCH BLOCK [90+ ms QRS DURATION, TERMINAL R IN V1/V2, 40+ ms S IN I/aVL/V4/V5/V6] PROBABLE INFERIOR MYOCARDIAL INFARCTION , OF INDETERMINATE AGE [35 ms Q WAVE IN II/aVF] Compared to ECG 02/02/2021 06:07:26 Incomplete right bundle-branch block now present Myocardial infarct finding now present Sinus bradycardia no longer present Electronically Signed On 01-13-2024 17:00:02 CDT by Hair Mujica M.D. [email or web address]
[2024-01-13 14:15] LABS: Specific Gravity, Urine 1.015 (1.005-1.030); Urine Appearance Clear (CLEAR); Urine Color Yellow (Yellow); pH Urine 8 (5-7)
[2024-01-13 14:16] LABS: Add Urine Culture? No; Bilirubin Urine Neg (Negative); Blood Urine Neg (Negative); Glucose Urine UA Norm (Normal); Ketones Urine Negative (Negative); Leukocyte Esterase Urine Negative (Negative); Nitrate Urine Negative (Negative); Protein Urine Neg (Negative); Sulfosalicylic Acid Urine Negative (Negative); Urobilinogen Urine Norm (Negative)
[2024-01-13 15:07] LABS: Basophils % 0.4 %; Eosinophils # 0.3 10^3/uL (0.0-0.8); Hematocrit 38.3 % (37-53); Lymphocytes # 1.1 10^3/uL (0.8-4.8); Lymphocytes % 20.3 %; Mean Corpuscular HGB Conc 33.4 g/dL (30-55); Mean Corpuscular Hemoglobin 28.6 pg (27-33); Mean Corpuscular Volume 85.5 fl (82-101); Mean Platelet Volume 10.2 fL (7.4-10.4); Monocytes # 0.5 10^3/uL (0.2-0.9); Neutrophils # 3.42 10^3/uL (1.8-7.7); Neutrophils % 64.1 %; Nucleated Red Blood Cells % 0 %; Platelet Count 272 10^3/cmm (157-399); Red Blood Count 4.48 10^6/uL (3.85-5.65); Red Cell Distribution Width 14.1 % (12.1-15.1); White Blood Count 5.33 10^3/uL (3.29-11.43)
[2024-01-13 15:27] LABS: Alanine Aminotransferase 14 U/L (0-41); Albumin Level 3.8 g/dL (3.5-5.2); Alkaline Phosphatase 71 U/L (40-130); Anion Gap 11.1 (5-19); Aspartate Amino Transferase 24 U/L (0-40); Blood Urea Nitrogen 6 mg/dL (8-23); Calcium 9.2 mg/dL (8.5-10.5); Carbon Dioxide 31 mmol/L (22-29); Chloride 100 mmol/L (98-107); Globulin 3.4 g/dL (1.3-4.6); Glomerular Filtration Rate 216.6 mL/min (90-130); Glucose 88 mg/dL (65-115); Osmolality Calculated 285 mOsm/kg (285-295); Potassium 3.1 mmol/L (3.5-5.1); Sodium 139 mmol/L (136-145); Total Bilirubin 0.6 mg/dL (0.15-1.2); Total Protein 7.2 g/dL (6.6-8.7)
[2024-01-13 15:28] LABS: Creatinine Clr Calc Pharmacy 152.0158; Troponin(5th) Baseline 11 ng/L (0-15)
== END 2024-01-13 16:31 | disposition home or self-care (01) ==
PROVIDERS: Emergency Provider Emergency Medicine; PCP Family Medicine
DX: I10 Essential (primary) hypertension (principal); R42 Dizziness and giddiness; Z79.82 Long term (current) use of aspirin; Z87.891 Personal history of nicotine dependence; J44.9 Chronic obstructive pulmonary disease, unspecified; Z85.118 Personal history of other malignant neoplasm of bronchus and lung; E78.5 Hyperlipidemia, unspecified; I25.10 Atherosclerotic heart disease of native coronary artery without angina pectoris
CPT/HCPCS: 36415; 80053; 81001; 84484; 85025; 93005; 99284

== ENCOUNTER 2024-02-08 09:33 | Outpatient (CLI) | payer BC, SELFPAY ==
--- NOTE | 2024-02-08 10:00 | NM_ITS ---
WS: [id number] NUCLEAR MEDICINE HIDA SCAN WITH GALLBLADDER EJECTION FRACTION HISTORY: abdominal pain COMPARISON: None available. TECHNIQUE: The patient was intravenously injected with 8.0 mCi of TC99m Mebrofenin. Immediate imaging over the right upper quadrant was followed by 5 minute image and additional images for a total of 60 minutes. Normal uptake of radiotracer throughout the liver. Activity identified in the gallbladder at 15 minutes and well distended by 60 minutes. Activity in the proximal small bowel was seen by 40 minutes. Good washout of the radiotracer from the liver by 60 minutes. The patient then drank 8 ounces of Ensure Plus. Ejection fraction at 65 minutes was 58%. Normal GB ej ection fraction is 35-75%. Post fatty meal symptoms: None. NM/NM hepatobiliary w phar* [id number] IMPRESSION: 1. Normal HIDA scan. 2. Normal gallbladder ejection fraction.
== END 2024-02-08 09:34 | disposition home or self-care (01) ==
LOC: RAD 09:33
PROVIDERS: PCP Family Medicine; Visit Provider Surgery
DX: R10.9 Unspecified abdominal pain (principal)
CPT/HCPCS: 78227; A9537

== ENCOUNTER 2024-02-28 05:18 | Day surgery (SDC) | payer BC, SELFPAY ==
[2024-02-28] VITALS (9 sets, daily range): BP systolic 95–134; BP diastolic 66–84; PULSE 75–84; RESP 12–17; TEMP 36.2–36.9; O2SAT 97–99; BMI 17.2
[2024-02-28] MEDS: sodium chloride 0.9% 1,000 ML 30 ML IV (06:32)
--- NOTE | 2024-02-28 06:33 | P.ANESASSM_ITS ---
Pre-Anesthetic Assessment Height/Weight: Height 1.8 m Weight 56.245 kg O2 Del Method Room Air 02/28/24 06:08 Operation Date: 02/28/24 07:00 Proposed Procedures p Laparoscopic Cholecystectomy 92676, R10.9(Not Applicable) - Felipe Rushing DO Familial anesthetic complications: None Was Beta Bob taken within 24 hours: N/A Was Clonidine taken within 24 hours: N/A Last intake: Intake Last Liquid Date 02/27/24 Last Liquid Time 23:00 Last Solid Date 02/27/24 Last Solid Time 19:00 Social No alcohol and No tobacco Airway Mallampati: Class II Dentition: other (mulitple chipped, missing, poor dentition) CV/HEM Coronary Artery Disease (stent), Hypertension and Myocardial Infarction GI Gastroesophageal Reflux Disease Metabolic Hyperlipidemia Anesthetic Plan ASA status: 3 Anesthesia: General Risk of > 500 ml blood loss (7ml/kg in children): No Medications/Allergies Home Medications Medication Instructions Recorded Confirmed Last Taken Type aspirin 81 mg tablet,delayed 81 mg PO DAILY 01/16/21 02/24/24 02/24/24 History release atorvastatin 40 mg tablet 40 mg PO QPM 01/16/21 02/28/24 02/27/24 History metoprolol tartrate 25 mg tablet 12.5 mg PO QPM 01/16/21 02/28/24 02/27/24 History multivitamin (Multiple Vitamins 1 tab PO DAILY 01/16/21 02/28/24 02/27/24 History tablet) pantoprazole 40 mg tablet,delayed 40 mg PO BID 12/26/23 02/28/24 01/08/24 History release docusate sodium 100 mg capsule 100 mg PO BID #14 caps 01/10/24 02/28/24 02/27/24 Rx (Colace) ibuprofen 800 mg tablet 800 mg PO Q8H PRN Pain 01/13/24 02/24/24 02/24/24 History nitroglycerin 0.4 mg sublingual See Rx Instructions .Route .COMPLEX 01/13/24 02/24/24 Unknown History tablet hydrocodone 5 mg-acetaminophen 325 1 tab PO Q6H PRN pain 5 days #20 02/13/24 02/28/24 02/27/24 Rx mg tablet tabs amoxicillin 875 mg tablet 875 mg PO Q12H 10 days #20 tabs 0502/28/24 02/27/24 Rx Allergies Allergy/AdvReac Type Severity Reaction Status Date / Time No Known Allergies Allergy Verified 02/24/24 09:53 Current Medications Generic Name Dose Route Start Last Admin Trade Name Rebecca PRN Reason Stop Dose Admin Sodium Chloride 1,000 mls @ 30 mls/hr 02/28/24 06:15 02/28/24 06:32 Sodium Chloride 0.9% IV 02/29/24 06:14 30 mls/hr .Q24H OEF Administration PFSH Anesthesia Medical History (Updated 01/23/24 @ 16:22 by Felipe Rushing DO) Lung cancer COPD (chronic obstructive pulmonary disease) Hyperlipidemia LDL goal <100 Coronary artery disease Skin cancer Surgical History (Updated 01/23/24 @ 16:22 by Felipe Rushing DO) Hx of hernia repair Laparoscopic (TEPP) repair of right inguinal hernia with mesh Laparoscopic (TEPP) repair of left inguinal hernia with mesh- 01/10/24 Dr Jeremy mitchell History of lung biopsy History of heart artery stent History of bronchoscopy Family History Brother CAD (coronary artery disease) Hypertension Mother Stroke Denies family history of Diabetes Cancer Social History Smoking and tobacco/nicotine status: former use of tobacco/nicotine Second hand smoke exposure: Yes Alcohol intake: never Substance/Drug Use: never Lives independently: Yes Household members: spouse Marital status: Current occupational status: employed Current occupation: [employer] 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
--- NOTE | 2024-02-28 06:40 | P.HP_ITS ---
Providers/Chief Complaint Primary Care Provider: Neal Alicea Chief Complaint: R10.9 History of Present Illness Manuel Roque is a 64 year old male with continued abdominal pain that radiates to his back despite medically managing constipation and an EGD showing gastritis treated with Protonix Review of Systems General: Reports: 10 or more systems reviewed and unremarkable except in HPI and below Medications/Allergies Home Medications Medication Instructions Recorded Confirmed Last Taken Type aspirin 81 mg tablet,delayed 81 mg PO DAILY 01/16/21 02/24/24 02/24/24 History release atorvastatin 40 mg tablet 40 mg PO QPM 01/16/21 02/28/24 02/27/24 History metoprolol tartrate 25 mg tablet 12.5 mg PO QPM 01/16/21 02/28/24 02/27/24 History multivitamin (Multiple Vitamins 1 tab PO DAILY 01/16/21 02/28/24 02/27/24 History tablet) pantoprazole 40 mg tablet,delayed 40 mg PO BID 12/26/23 02/28/24 01/08/24 History release docusate sodium 100 mg capsule 100 mg PO BID #14 caps 01/10/24 02/28/24 02/27/24 Rx (Colace) ibuprofen 800 mg tablet 800 mg PO Q8H PRN Pain 01/13/24 02/24/24 02/24/24 History nitroglycerin 0.4 mg sublingual See Rx Instructions .Route .COMPLEX 01/13/24 02/24/24 Unknown History tablet hydrocodone 5 mg-acetaminophen 325 1 tab PO Q6H PRN pain 5 days #20 02/13/24 02/28/24 02/27/24 Rx mg tablet tabs amoxicillin 875 mg tablet 875 mg PO Q12H 10 days #20 tabs 02/22/24 02/28/24 02/27/24 Rx Allergies Allergy/AdvReac Type Severity Reaction Status Date / Time No Known Allergies Allergy Verified 02/24/24 09:53 PFSH Acute PFSH: Medical History (Updated 01/23/24 @ 16:22 by Felipe Rushing DO) Lung cancer COPD (chronic obstructive pulmonary disease) Hyperlipidemia LDL goal <100 Coronary artery disease Skin cancer Surgical History (Updated 01/23/24 @ 16:22 by Felipe Rushing DO) Hx of hernia repair Laparoscopic (TEPP) repair of right inguinal hernia with mesh Laparoscopic (TEPP) repair of left inguinal hernia with mesh- 01/10/24 Dr Rushing History of lung biopsy History of heart artery stent History of bronchoscopy Family History Brother CAD (coronary artery disease) Hypertension Mother Stroke Denies family history of Diabetes Cancer Social History Smoking and tobacco/nicotine status: former use of tobacco/nicotine Second hand smoke exposure: Yes Alcohol intake: never Substance/Drug Use: never Lives independently: Yes Household members: spouse Marital status: Current occupational status: employed Current occupation: [employer] 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) Previous occupational history: [employer] Do you think of yourself as: Straight/Heterosexual Current gender identity: Male Vitals/I&O/Wt Last Vital Signs O2 Del Method Room Air 02/28/24 06:08 Weight last 48 hrs Weight 124 lb A&P Assessment and plan (1) Abdominal pain: Plan Laparoscopic cholecystectomy The risks and benefits of the procedure, including but not limited to, bleeding, infection, scar, numbness, pain, damage to surrounding structures, damage to common bile duct requiring additional surgery, conversion to an open procedure, and especially cholecystectomy may not relieve his pain however his gallbladder would no longer be in the differential, were explained to the patient. He is understanding of the risks and wishes to proceed. Attestations Medical Necessity Statement*: Home Coding Level of Care Code Acute Code for Chg Fwd Diagnoses Abdominal pain R10.9
[2024-02-28] MEDS: ceFAZolin 2,000 MG in sodium chloride 0.9% (plus) 50 ML 100 MG IV (06:59)
[2024-02-28] MEDS: lidocaine-epi 2% PF 1:200,000 20 mL SDV XX (07:31)
--- NOTE | 2024-02-28 07:38 | P.OP_ITS ---
Operative Report Date of procedure: February 28, 2024 Pre-op diagnosis: Abdominal pain Post-op diagnosis: same Procedure done: Laparoscopic cholecystectomy Implants: None Specimens removed/disposition: Gallbladder Surgeon: Felipe Rushing DO Anesthesia: General and Local Estimated blood loss (mL): 5 Brief History: This is a very pleasant 64-year-old gentleman who originally presented to my office with abdominal pain radiating to his back. He underwent EGD and colonoscopy. He was found to have gastritis which was adequately treated with Protonix but the pain did not resolve. He had constipation which was adequately treated with Linzess and still his pain did not resolve. Ultrasound and HIDA scan in the gallbladder were within normal limits. Cholecystectomy was offered with the explanation that it may not relieve all of his symptoms but would remove gallbladder disease from the differential diagnosis. The risks and benefits of cholecystectomy were explained and understood. Informed consent was obtained. Procedure: Patient was wheeled into the operative room and placed on the OR table in a supine position. Abdomen was inspected prepped and draped in usual sterile fashion. Time-out was performed and all present were in agreement. A 15 blade scalp was used to make a stab incision in the left upper quadrant and intra- abdominal insufflation was achieved using a Veress needle. After localizing the tissue incisions were made and a 5 millimeter trocar was placed into the umbilicus as well as 2 in the right upper quadrant. A 12 millimeter trocar was placed in the epigastrium. Gallbladder was grasped and elevated. The triangle of Calot was carefully dissected using blunt dissection and electrocautery until the triangle of Calot clearly identified. The cystic duct was clipped proximally and double clipped distally. The duct was then ligated proximally. The cystic artery was doubly clipped and ligated. The gallbladder was then removed from the liver bed using electrocautery. The gallbladder was removed from the abdomen using an Endo-Catch bag through the epigastric incision. The liver bed was inspected and no bleeding was seen. The abdomen was irrigated and suctioned. All ports removed. Skin was washed and dried. Incisions were closed with 4-0 Monocryl in a subcuticular interrupted fashion. Skin glue was applied. Patient tolerated the procedure well.
--- NOTE | 2024-02-28 09:00 | ANE.PACU2 ---
Inpatient post-anesthesia follow up: Airway intact: Yes Vital signs: Temperature 98.4 F Pulse Rate 75 Respiratory Rate 17 Blood Pressure 134/79 Pulse Oximetry 99 Oxygen Delivery Me thod Room Air Oxygen Flow Rate Fraction of Inspir ed Oxygen Hydration adequate: Yes Nausea and vomiting: No Pain level: 1 Mental status: Baseline
== END 2024-02-28 09:00 | disposition home or self-care (01) ==
PROVIDERS: PCP Family Medicine; Visit Provider Surgery
PROC: 0FT44ZZ Resection of Gallbladder, Percutaneous Endoscopic Approach (ICD-10-PCS; CPT 47562; principal; 2024-02-28 07:00)
DX: K81.1 Chronic cholecystitis (principal); I25.10 Atherosclerotic heart disease of native coronary artery without angina pectoris; Z95.5 Presence of coronary angioplasty implant and graft; I10 Essential (primary) hypertension; I25.2 Old myocardial infarction; K21.9 Gastro-esophageal reflux disease without esophagitis; E78.5 Hyperlipidemia, unspecified; Z79.82 Long term (current) use of aspirin; J44.9 Chronic obstructive pulmonary disease, unspecified; Z87.891 Personal history of nicotine dependence
CPT/HCPCS: 47562; 88304; J0330; J0690; J1100; J2250; J2405; J2704; J2710; J3010; J3490; J7030

== ENCOUNTER 2024-03-28 08:30 | Day surgery (SDC) | payer BC, SELFPAY ==
[2024-03-28 09:15] VITALS: BP 142/88; PULSE 90; RESP 18; TEMP 36.6; O2SAT 98; BMI 16.5
[2024-03-28] MEDS: sodium chloride 0.9% 1,000 ML 30 ML IV (09:22)
--- NOTE | 2024-03-28 09:37 | ANES.PREANE2 ---
Pre-Anesthetic Assessment Height/Weight: Height 1.8 m Weight 53.524 kg Temp Pulse Resp BP Pulse Ox O2 Del Method 97.8 F 90 18 142/88 98 Room Air 03/28/24 09:15 03/28/24 09:15 03/28/24 09:15 03/28/24 09:15 03/28/24 09:15 03/28/24 09:15 Operation Date: 03/28/24 10:15 Proposed Procedures p EGD 45362, K22.70(Not Applicable) - Felipe Rushing DO Familial anesthetic complications: None Was Beta Bob taken within 24 hours: N/A Was Clonidine taken within 24 hours: N/A Last intake: Intake Last Liquid Date 03/27/24 Last Liquid Time 20:00 Last Solid Date 03/27/24 Last Solid Time 19:00 Social No alcohol and No tobacco former smoker Exam alert, oriented x 3, clear to auscultation bilaterally and regular rate & rhythm Airway Mallampati: Class II Dentition: other (multiple missing) Pulmonary Lung resection CV/HEM Coronary Artery Disease (stent placed > 1 year ago) GI Gastroesophageal Reflux Disease Anesthetic Plan ASA status: 3 Anesthesia: MAC Risk of > 500 ml blood loss (7ml/kg in children): No Medications/Allergies Home Medications Medication Instructions Recorded Confirmed Last Taken Type aspirin 81 mg tablet,delayed 81 mg PO DAILY 01/16/21 03/28/24 03/26/24 History release atorvastatin 40 mg tablet 40 mg PO QPM 01/16/21 03/28/24 03/27/24 History metoprolol tartrate 25 mg tablet 12.5 mg PO QPM 01/16/21 03/28/24 03/27/24 History multivitamin (Multiple Vitamins 1 tab PO DAILY 01/16/21 03/28/24 03/27/24 History tablet) docusate sodium 100 mg capsule 100 mg PO BID #14 caps 01/10/24 03/28/24 03/27/24 Rx (Colace) nitroglycerin 0.4 mg sublingual See Rx Instructions .Route .COMPLEX 01/13/24 03/28/24 Unknown History tablet pantoprazole 40 mg tablet,delayed 40 mg PO BID 6 weeks #84 tabs 03/12/24 03/28/24 03/27/24 Rx release tamsulosin 0.4 mg capsule (Flomax) 0.4 mg PO DAILY 30 days #30 caps 03/12/24 03/28/24 03/27/24 Rx ibuprofen 800 mg tablet 800 mg PO Q4H 03/26/24 03/28/24 03/27/24 History Allergies Allergy/AdvReac Type Severity Reaction Status Date / Time No Known Allergies Allergy Verified 03/26/24 13:53 Current Medications Generic Name Dose Route Start Last Admin Trade Name Freq PRN Reason Stop Dose Admin Sodium Chloride 1,000 mls @ 30 mls/hr 03/28/24 08:45 03/28/24 09:22 Sodium Chloride 0.9% IV 03/29/24 08:44 30 mls/hr .Q24H OFE Administration PFSH Anesthesia Medical History Lung cancer COPD (chronic obstructive pulmonary disease) Hyperlipidemia LDL goal <100 Coronary artery disease Skin cancer Surgical History (Updated 03/23/24 @ 11:21 by Felipe Rushing DO) Hx laparoscopic cholecystectomy 02/28/24 Dr Rushing Hx of hernia repair Laparoscopic (TEPP) repair of right inguinal hernia with mesh Laparoscopic (TEPP) repair of left inguinal hernia with mesh- 01/10/24 Dr Rushing History of lung biopsy History of heart artery stent History of bronchoscopy Family History Brother CAD (coronary artery disease) Hypertension Mother Stroke Denies family history of Diabetes Cancer Social History Smoking and tobacco/nicotine status: former use of tobacco/nicotine Second hand smoke exposure: Yes Alcohol intake: never Substance/Drug Use: never Lives independently: Yes Household members: spouse Marital status: Current occupational status: employed Current occupation: 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
--- NOTE | 2024-03-28 10:13 | W.PM.OPSUD ---
Surgery/Procedure H&P Update DATE OF PROCEDURE: March 28, 2024 DATE H&P PERFORMED: 03/12/24 H&P UPDATE INFORMATION: I have reviewed H&P completed within last 30 days, I have examined patient prior to procedure and No changes to prior documentation PLANNED PROCEDURE: Operation Date: 03/28/24 10:15 Proposed Procedures p EGD 34570, K22.70(Not Applicable) - Felipe Rushing, DO
--- NOTE | 2024-03-28 10:18 | SUR.OPER ---
Epi 2 mL (1 mg in 10 mL NS) injected per Dr. Rushing during EGD
[2024-03-28 10:26] VITALS: BP 119/75; PULSE 72; RESP 20; TEMP 36.4; O2SAT 99
[2024-03-28] MEDS: EPINEPHrine 1 mg/mL INJ XX (10:34)
[2024-03-28 10:41] VITALS: BP 116/71; PULSE 73; RESP 20; O2SAT 100
--- NOTE | 2024-03-28 11:35 | ANE.PACU2 ---
Inpatient post-anesthesia follow up: Airway intact: Yes Vital signs: Temperature 97.5 F Pulse Rate 73 Respiratory Rate 20 Blood Pressure 116/71 Pulse Oximetry 100 Oxygen Delivery Me thod Room Air Oxygen Flow Rate 4 Fraction of Inspir ed Oxygen Hydration adequate: Yes Nausea and vomiting: No Pain level: 1 Mental status: Baseline
== END 2024-03-28 11:34 | disposition home or self-care (01) ==
PROVIDERS: PCP Family Medicine; Visit Provider Surgery
PROC: 0DJ08ZZ Inspection of Upper Intestinal Tract, Via Natural or Artificial Opening Endoscopic (ICD-10-PCS; CPT 43235; principal; 2024-03-28 10:15)
DX: K22.70 Barrett's esophagus without dysplasia (principal); K29.50 Unspecified chronic gastritis without bleeding; I25.10 Atherosclerotic heart disease of native coronary artery without angina pectoris; Z95.5 Presence of coronary angioplasty implant and graft; K21.9 Gastro-esophageal reflux disease without esophagitis; Z79.82 Long term (current) use of aspirin; Z85.118 Personal history of other malignant neoplasm of bronchus and lung; Z87.891 Personal history of nicotine dependence
CPT/HCPCS: 43239; 88305; 88342; J0171; J2704; J7030

== ENCOUNTER 2024-05-01 08:01 | Oncology outpatient (recurring) (ONCR) | payer BC, SELFPAY ==
[2024-04-23 08:54] LABS: Basophils # 0.1 10^3/uL (0.0-0.1); Basophils % 0.9 %; Eosinophils # 0.2 10^3/uL (0.0-0.8); Eosinophils % 3.3 %; Hematocrit 39.4 % (37-53); Lymphocytes # 1.1 10^3/uL (0.8-4.8); Lymphocytes % 19.9 %; Mean Corpuscular HGB Conc 33.5 g/dL (30-55); Mean Corpuscular Hemoglobin 29.8 pg (27-33); Mean Corpuscular Volume 88.9 fl (82-101); Mean Platelet Volume 9.2 fL (7.4-10.4); Monocytes # 0.5 10^3/uL (0.2-0.9); Monocytes % 9.3 %; Neutrophils # 3.76 10^3/uL (1.8-7.7); Neutrophils % 66.2 %; Nucleated Red Blood Cells % 0 %; Platelet Count 252 10^3/cmm (157-399); Red Blood Count 4.43 10^6/uL (3.85-5.65); Red Cell Distribution Width 13.9 % (12.1-15.1); White Blood Count 5.68 10^3/uL (3.29-11.43)
[2024-04-23 09:16] LABS: Alanine Aminotransferase 18 U/L (0-41); Albumin Level 3.7 g/dL (3.5-5.2); Alkaline Phosphatase 82 U/L (40-130); Anion Gap 13.4 (5-19); Aspartate Amino Transferase 22 U/L (0-40); Blood Urea Nitrogen 13 mg/dL (8-23); Calcium 8.9 mg/dL (8.5-10.5); Carbon Dioxide 26 mmol/L (22-29); Chloride 102 mmol/L (98-107); Globulin 3.7 g/dL (1.3-4.6); Glomerular Filtration Rate 135.2 mL/min (90-130); Glucose 85 mg/dL (65-115); Osmolality Calculated 283 mOsm/kg (285-295); Potassium 4.4 mmol/L (3.5-5.1); Sodium 137 mmol/L (136-145); Total Bilirubin 0.3 mg/dL (0.15-1.2); Total Protein 7.4 g/dL (6.6-8.7)
--- NOTE | 2024-05-01 08:00 | PETR_ITS ---
PROCEDURE INFORMATION: Exam: PET/CT Skull Base to Mid-thigh Exam date and time: 05/01/2024 8:29 AM Age: 64 years old Clinical indication: Condition or disease; Primary cancer: Malignant neoplasm of unspecified part of unspecified bronchus or lung; Follow-up oncological assessment; Prior surgery; Surgery date: 6+ months; Surgery type: Right lung; Additional info: [facility] LABS AND CLINICAL REPORTS: Glucose: 117 mg/dl Treatment strategy for malignancy (PET staging): Restaging (PS) TECHNIQUE: Imaging protocol: Following at least four-hour fasting and following the injection of radiopharmaceutical, low dose CT images were obtained. Then, PET images were obtained. Attenuation corrected images were constructed using the CT scan. Fused images of PET and CT were reviewed. The standardized uptake values (SUV) reported below are maximum values within a region of interest, expressed in gm/ml. Exam includes orbital meatal line to mid-thigh. Radiopharmaceutical: 13.4 mCi F-18 FDG (Fluorodeoxyglucose), IV. Time of imaging post radiopharmaceutical administration: 1 hour Injection site: Right forearm COMPARISON: CT chest 12/23/2021, PT PET Scan 11/29/2020 10:05 AM FINDINGS: Brain: Visualized brain has normal physiologic uptake. Pharynx: No abnormal uptake. Larynx: No abnormal uptake. Lungs, pleura and trachea: No abnormal uptake. Mild non radiotracer avid peripheral patchy density and interstitial prominence in the posterior right lung an inferior right middle lobe is noted. There are postoperative changes of right upper lobectomy. Calcified granulomas in the right middle lobe are noted. A similar non radiotracer avid solid right lower lobe 4 mm nodule on image 115 is present. Mild peripheral bullous versus paraseptal emphysematous changes are present in both lungs. A similar solid non radiotracer avid 4 mm left upper lobe nodule on image 140 is present. Heart: Normal physiologic uptake. Mediastinal space: No abnormal uptake. Liver: No abnormal uptake. Gallbladder and biliary ducts: No abnormal uptake. Cholecystectomy clips are present. Pancreas: No abnormal uptake. Spleen: No abnormal uptake. Adrenal glands: Mild uptake in the bilateral adrenal glands is noted, SUV max 3.3 on the left and 3.6 on the right, with evidence of mild thickening and/or nodularity. Kidneys and ureters: Normal physiologic uptake. Stomach and bowel: No abnormal uptake. Reproductive: There is moderate prominence of the prostate gland without elevated uptake. Vasculature: No abnormal uptake. There are diffuse atherosclerotic calcifications. Lymph nodes: Radiotracer avid lymph nodes are newly identified in the left supraclavicular and left axillary regions. Examples: Left supraclavicular region measuring 1.5 cm on a series 3, image 83, SUV max 4.2, and measuring approximately 1.5 x 1.0 cm on image 87, SUV max 4.5; left axilla measuring 1.1 x 1.3 cm on image 112, SUV max 5.8. No radiotracer avid mediastinal or hilar lymphadenopathy. A newly enlarged lymph node in the region of the celiac artery measures approximately 2.5 x 2.0 cm on image 175, SUV max 4.6. Radiotracer avid newly enlarged retroperitoneal periaortic lymph nodes are present in the mid to upper abdomen, for example in the right periaortic space with an SUV max 3.8 on image 180 within an approximately 1.4 cm lymph node. Elevated radiotracer uptake within these abdominal lymph nodes is new since the prior PET-CT. Skeleton: No abnormal uptake in the visualized axial and appendicular skeleton. Degenerative changes in the spine are present. Soft tissues: No abnormal uptake in the visualized head, neck, chest, abdomen, pelvis, and extremities. METRICS: Mediastinal blood pool: SUV max 1.9 PET/PET skull to thigh SUBS [id number] IMPRESSION: 1. New radiotracer avid lymphadenopathy of the left supraclavicular region, left axilla and upper abdomen. Interval resolution of radiotracer avid lymphadenopathy of the mediastinum and hilar regions compared with the prior PET-CT. These findings suggest a mixed response to therapy since the prior PET-CT. 2. Small bilateral pulmonary nodules are not radiotracer avid. Assessment of small nodules can be limited by PET-CT. 3. Mild new uptake within the bilateral adrenal glands, associated with mild thickening versus nodularity. This may represent benign uptake, for example in the setting of adrenal hyperplasia. As this uptake is new since the prior PET-CT, metastases cannot be excluded. 4. Additional nonurgent findings as detailed above.
== END 2024-05-02 23:59 | disposition home or self-care (01) ==
LOC: RAD 08:01 → ONCMED 08:01
PROVIDERS: PCP Family Medicine; Visit Provider Internal Medicine Medical Oncology
DX: C34.90 Malignant neoplasm of unspecified part of unspecified bronchus or lung (principal); R59.1 Generalized enlarged lymph nodes
CPT/HCPCS: 36415; 78815; 80053; 85025; A9552

== ENCOUNTER 2024-05-24 08:21 | Oncology outpatient (recurring) (ONCR) | payer BC, SELFPAY ==
--- NOTE | 2024-05-07 08:00 | MR_ITS ---
WS: [id number] MR CERVICAL SPINE WO/W HISTORY: lung cancer TECHNIQUE: Sagittal T1, T2 and T2 inversion recovery; axial T2, T2 gradient and fiesta. Post gadolini um imaging with fat saturation technique. FINDINGS:Straightening of the normal cervical lordosis. No high grade central canal narrowing. Cord s ignal is normal. No abnormal gadolinium enhancement. No evidence of enhancing bony metastatic disease . No evidence of enhancing epidural disease. C2-3: Spinal canal and foramen are patent. C3-4: Mild disc osteophyte complex with endplate ridging. Mild RIGHT foraminal narrowing. Mild facet arthropathy. C4-5: Disc osteophyte complex with endplate ridging. Slight contact of the cervical cord. Mild centra l canal stenosis. Mild bilateral foraminal narrowing RIGHT greater than LEFT. Moderate facet arthropa thy. C5-6: Central disc osteophyte protrusion with slight contact of the cervical cord. Spinal canal is pa tent. Moderate LEFT and mild RIGHT bony foraminal narrowing. Moderate facet arthropathy. C6-7: Spinal canal and foramen are patent. C7-T1: Spinal canal and foramen are patent. MR/MR cervical spine wo/w [id number] IMPRESSION: 1. Straightening of the normal cervical lordosis. No high-grade central canal narrowing. Cord signal is normal. 2. No evidence of enhancing metastatic disease. 3. Mild central canal stenosis C4-5 with small central disc osteophyte protru arpan and slight contact of the RIGHT ventral cervical cord. 4. Moderate LEFT C5-6 bony foraminal narrowing.
--- NOTE | 2024-05-07 08:45 | MR_ITS ---
WS: [id number] MRI HEAD WITH CONTRAST TECHNIQUE: Sagittal T1, T2 axial, T2 axial FLAIR, axial susceptibility weighted imaging, axial diffus ion weighted images, and coronal T2 images were obtained. Pre and post-T1 axial and post T1 coronal i mages. ADC and FSPGR images. CLINICAL INFORMATION: lung cancer COMPARISON: None. FINDINGS: No evidence of restricted diffusion to suggest acute ischemia. Ventricular system and basilar cistern s are patent. Mild small vessel changes. Moderate parenchymal volume loss. Normal posterior fossa. No rmal vascular flow voids at the skull base. No extra-axial fluid collections. Paranasal sinuses and m astoid air cells are well aerated. Tiny chronic lacunar infarct LEFT thalamus. No hemosiderin on the susceptibly weighted images. Normal optic chiasm and pituitary infundibulum. Te mporal lobes and hippocampal formations are normal in appearance. No abnormal gadolinium enhancement. Normal dural venous sinuses. No evidence of enhancing intracrania l metastatic disease. MR/MR head wo/w con [id number] IMPRESSION: 1. No evidence of enhancing intracranial metastatic disease. 2. No restricted diffusion to suggest acute ischemia. 3. Mild small vessel changes with moderate parenchymal volume loss. 4. No hemosiderin on the susceptibly weighted images. 5. Tiny chronic lacunar infarct LEFT thalamus. 6. No other acute findings.
[2024-05-07] MEDS: gadobenate dimeglumine 20 mL vial 11 ML IV (09:41)
--- NOTE | 2024-05-16 13:15 | US_ITS ---
WS: [id number] ULTRASOUND GUIDED BIOPSY LEFT SUPRACLAVICULAR LYMPH NODE HISTORY: supraclavicular mass Procedure, risks, and complications are explained to the patient. Consent was obtained. Skin is clean sed with ChloraPrep and anesthetized with 1% buffered lidocaine. PET/CT 05/01/2024 was reviewed. The abnormal lymph nodes are identified in the LEFT supraclavicular region. There is mild increased v ascularity. This is an abnormal soft tissue deposit measuring 1.7 x 2.2 x 0.9 cm. 20-gauge core needle biopsies are performed and placed in formalin and RPMI. Additional 18-gauge core needle biopsies performed and placed in formalin also. No complications were encountered. Patient to lerated the procedure well. US/US biopsy lymph node [id number] IMPRESSION: Uncomplicated ultrasound-guided biopsy of the PET/CT positive lymph node in the RIGHT supraclavicular region. Core biopsies are sent for flow cytometry and me tastatic disease.
[2024-05-17 14:22] LABS: Lymphoma Profile (BBPL) See Report
[2024-05-23 07:13] LABS: PD-L1 (Clone 22C3) by IHC BBPL See Report
== END 2024-06-02 23:55 | disposition home or self-care (01) ==
PROVIDERS: PCP Family Medicine; Visit Provider Internal Medicine Medical Oncology
DX: Z53.9 Procedure and treatment not carried out, unspecified reason
CPT/HCPCS: 38505; 70553; 72156; 76942; 88184; 88185; 88305; 88341; 88342; A9577

== ENCOUNTER 2024-06-25 07:48 | Oncology outpatient (recurring) (ONCR) | payer BC, SELFPAY ==
[2024-06-25 08:11] LABS: Basophils # 0.1 10^3/uL (0.0-0.1); Basophils % 1.2 %; Eosinophils # 0.2 10^3/uL (0.0-0.8); Eosinophils % 2.8 %; Hematocrit 37.9 % (37-53); Lymphocytes # 1.2 10^3/uL (0.8-4.8); Lymphocytes % 21.1 %; Mean Corpuscular HGB Conc 32.7 g/dL (30-55); Mean Corpuscular Hemoglobin 29.1 pg (27-33); Mean Platelet Volume 9.5 fL (7.4-10.4); Monocytes # 0.5 10^3/uL (0.2-0.9); Monocytes % 9.3 %; Neutrophils # 3.78 10^3/uL (1.8-7.7); Neutrophils % 65.4 %; Nucleated Red Blood Cells % 0 %; Platelet Count 268 10^3/cmm (157-399); Red Blood Count 4.26 10^6/uL (3.85-5.65); Red Cell Distribution Width 13.3 % (12.1-15.1); White Blood Count 5.78 10^3/uL (3.29-11.43)
[2024-06-25 08:37] LABS: Alanine Aminotransferase 54 U/L (0-41); Albumin Level 3.6 g/dL (3.5-5.2); Alkaline Phosphatase 91 U/L (40-130); Blood Urea Nitrogen 12 mg/dL (8-23); Calcium 8.8 mg/dL (8.5-10.5); Carbon Dioxide 28 mmol/L (22-29); Chloride 99 mmol/L (98-107); Cortisol Random 19.93 ug/dL (2.47-19.5); Globulin 4.1 g/dL (1.3-4.6); Glomerular Filtration Rate 166.9 mL/min (90-130); Glucose 79 mg/dL (65-115); Osmolality Calculated 279 mOsm/kg (285-295); Sodium 135 mmol/L (136-145); Thyroid Stimulating Hormone 3.32 uIU/mL (0.27-4.20); Total Bilirubin 0.4 mg/dL (0.15-1.2); Total Protein 7.7 g/dL (6.6-8.7)
[2024-06-25 08:44] LABS: Anion Gap 12.6 (5-19); Aspartate Amino Transferase 47 U/L (0-40); Potassium 4.6 mmol/L (3.5-5.1)
[2024-06-25] MEDS: sodium chloride 0.9% 250 ML 75 ML IV (08:57)
[2024-06-25] MEDS: pembrolizumab 200 MG in sodium chloride 0.9% 250 ML 516 MG IV (09:07)
[2024-06-25] MEDS: morphine 4 mg/mL SDV 1 mL 2 MG SUBCUT (10:19)
[2024-06-25 10:50] VITALS: BP 146/90; PULSE 69; RESP 17; TEMP 36.1; O2SAT 99
== END 2024-07-02 23:59 | disposition home or self-care (01) ==
PROVIDERS: PCP Family Medicine; Visit Provider Internal Medicine Medical Oncology
DX: Z51.12 Encounter for antineoplastic immunotherapy (principal); C34.11 Malignant neoplasm of upper lobe, right bronchus or lung; Z79.899 Other long term (current) drug therapy
CPT/HCPCS: 80053; 82533; 84443; 85025; 96372; 96413; A4222; J2270; J7050; J9271

== ENCOUNTER 2024-07-23 09:00 | Oncology outpatient (recurring) (ONCR) | payer BC, SELFPAY ==
[2024-07-19 09:07] LABS: Basophils # 0.1 10^3/uL (0.0-0.1); Basophils % 1.2 %; Eosinophils # 0.2 10^3/uL (0.0-0.8); Eosinophils % 4.1 %; Hematocrit 35.6 % (37-53); Lymphocytes # 0.9 10^3/uL (0.8-4.8); Lymphocytes % 19.2 %; Mean Corpuscular HGB Conc 32.6 g/dL (30-55); Mean Corpuscular Hemoglobin 29.3 pg (27-33); Mean Corpuscular Volume 89.9 fl (82-101); Mean Platelet Volume 9.7 fL (7.4-10.4); Monocytes # 0.5 10^3/uL (0.2-0.9); Neutrophils # 3.13 10^3/uL (1.8-7.7); Neutrophils % 64.1 %; Nucleated Red Blood Cells % 0 %; Platelet Count 246 10^3/cmm (157-399); Red Blood Count 3.96 10^6/uL (3.85-5.65); Red Cell Distribution Width 14.6 % (12.1-15.1); White Blood Count 4.89 10^3/uL (3.29-11.43)
[2024-07-19 09:28] LABS: Albumin Level 3.3 g/dL (3.5-5.2); Alkaline Phosphatase 140 U/L (40-130); Anion Gap 9.8 (5-19); Blood Urea Nitrogen 16 mg/dL (8-23); Calcium 8.1 mg/dL (8.5-10.5); Carbon Dioxide 29 mmol/L (22-29); Chloride 104 mmol/L (98-107); Creatinine Clr Calc Pharmacy 73.8268; Globulin 3.3 g/dL (1.3-4.6); Glomerular Filtration Rate 135.2 mL/min (90-130); Glucose 139 mg/dL (65-115); Osmolality Calculated 289 mOsm/kg (285-295); Potassium 4.8 mmol/L (3.5-5.1); Sodium 138 mmol/L (136-145); Total Bilirubin 0.7 mg/dL (0.15-1.2); Total Protein 6.6 g/dL (6.6-8.7)
[2024-07-19 10:00] LABS: Alanine Aminotransferase 2093 U/L (0-41)
[2024-07-19 10:02] LABS: Aspartate Amino Transferase 1240 U/L (0-40)
[2024-07-23 09:17] LABS: Basophils # 0.1 10^3/uL (0.0-0.1); Basophils % 1.1 %; Eosinophils # 0.1 10^3/uL (0.0-0.8); Hematocrit 41.2 % (37-53); Lymphocytes # 1.4 10^3/uL (0.8-4.8); Lymphocytes % 17.4 %; Mean Corpuscular Hemoglobin 28.8 pg (27-33); Monocytes # 0.9 10^3/uL (0.2-0.9); Monocytes % 10.6 %; Neutrophils # 5.61 10^3/uL (1.8-7.7); Neutrophils % 69.8 %; Nucleated Red Blood Cells % 0 %; Platelet Count 296 10^3/cmm (157-399); Red Blood Count 4.58 10^6/uL (3.85-5.65); Red Cell Distribution Width 15.3 % (12.1-15.1); White Blood Count 8.04 10^3/uL (3.29-11.43)
[2024-07-23 09:27] LABS: Albumin Level 3.5 g/dL (3.5-5.2); Alkaline Phosphatase 134 U/L (40-130); Anion Gap 10.6 (5-19); Aspartate Amino Transferase 216 U/L (0-40); Blood Urea Nitrogen 18 mg/dL (8-23); Calcium 8.4 mg/dL (8.5-10.5); Carbon Dioxide 32 mmol/L (22-29); Chloride 102 mmol/L (98-107); Creatinine Clr Calc Pharmacy 73.2357; Globulin 3.7 g/dL (1.3-4.6); Glomerular Filtration Rate 135.2 mL/min (90-130); Glucose 85 mg/dL (65-115); Osmolality Calculated 291 mOsm/kg (285-295); Potassium 4.6 mmol/L (3.5-5.1); Sodium 140 mmol/L (136-145); Total Bilirubin 0.7 mg/dL (0.15-1.2); Total Protein 7.2 g/dL (6.6-8.7)
[2024-07-23 10:12] LABS: Alanine Aminotransferase 821 U/L (0-41)
== END 2024-08-02 23:59 | disposition home or self-care (01) ==
PROVIDERS: Nurse Practitioner Family; PCP Family Medicine; Visit Provider Internal Medicine Hematology & Oncology
DX: C34.11 Malignant neoplasm of upper lobe, right bronchus or lung (principal); Z53.9 Procedure and treatment not carried out, unspecified reason
CPT/HCPCS: 36415; 80053; 85025

== ENCOUNTER 2024-08-07 12:17 | Oncology outpatient (recurring) (ONCR) | payer BC, SELFPAY ==
[2024-08-07 13:01] LABS: Basophils # 0.1 10^3/uL (0.0-0.1); Eosinophils # 0.9 10^3/uL (0.0-0.8); Eosinophils % 9.6 %; Hematocrit 42.8 % (37-53); Lymphocytes # 1.3 10^3/uL (0.8-4.8); Lymphocytes % 13.4 %; Mean Corpuscular HGB Conc 32.2 g/dL (30-55); Mean Corpuscular Volume 89.9 fl (82-101); Mean Platelet Volume 9.6 fL (7.4-10.4); Monocytes # 0.7 10^3/uL (0.2-0.9); Neutrophils # 6.61 10^3/uL (1.8-7.7); Neutrophils % 68.6 %; Nucleated Red Blood Cells % 0 %; Platelet Count 251 10^3/cmm (157-399); Red Blood Count 4.76 10^6/uL (3.85-5.65); Red Cell Distribution Width 17.2 % (12.1-15.1); White Blood Count 9.63 10^3/uL (3.29-11.43)
[2024-08-07 13:22] LABS: Alanine Aminotransferase 187 U/L (0-41); Albumin Level 3.8 g/dL (3.5-5.2); Alkaline Phosphatase 102 U/L (40-130); Aspartate Amino Transferase 84 U/L (0-40); Blood Urea Nitrogen 18 mg/dL (8-23); Calcium 8.4 mg/dL (8.5-10.5); Carbon Dioxide 29 mmol/L (22-29); Chloride 97 mmol/L (98-107); Globulin 3.6 g/dL (1.3-4.6); Glomerular Filtration Rate 135.2 mL/min (90-130); Glucose 60 mg/dL (65-115); Osmolality Calculated 284 mOsm/kg (285-295); Sodium 137 mmol/L (136-145); Total Bilirubin 0.9 mg/dL (0.15-1.2); Total Protein 7.4 g/dL (6.6-8.7)
[2024-08-07 13:24] LABS: Creatinine Clr Calc Pharmacy 72.0547
== END 2024-09-01 23:59 | disposition home or self-care (01) ==
LOC: ONCMED 12:18
PROVIDERS: Nurse Practitioner Family; PCP Family Medicine; Visit Provider Internal Medicine Hematology & Oncology
DX: C34.11 Malignant neoplasm of upper lobe, right bronchus or lung (principal); Z79.899 Other long term (current) drug therapy
CPT/HCPCS: 36415; 80053; 85025

== ENCOUNTER 2024-10-02 11:00 | Oncology outpatient (recurring) (ONCR) | payer BC, SELFPAY ==
[2024-09-18 09:18] LABS: Basophils % 0.4 %; Eosinophils # 0.1 10^3/uL (0.0-0.8); Eosinophils % 1.2 %; Hematocrit 41.7 % (37-53); Lymphocytes # 1.2 10^3/uL (0.8-4.8); Lymphocytes % 14.7 %; Mean Corpuscular HGB Conc 33.1 g/dL (30-55); Mean Corpuscular Hemoglobin 29.6 pg (27-33); Mean Corpuscular Volume 89.3 fl (82-101); Mean Platelet Volume 9.6 fL (7.4-10.4); Monocytes # 0.5 10^3/uL (0.2-0.9); Monocytes % 5.6 %; Neutrophils # 6.54 10^3/uL (1.8-7.7); Neutrophils % 77.6 %; Nucleated Red Blood Cells % 0 %; Platelet Count 285 10^3/cmm (157-399); Red Blood Count 4.67 10^6/uL (3.85-5.65); Red Cell Distribution Width 16.9 % (12.1-15.1); White Blood Count 8.42 10^3/uL (3.29-11.43)
[2024-09-18 09:35] LABS: Alanine Aminotransferase 24 U/L (0-41); Albumin Level 3.4 g/dL (3.5-5.2); Alkaline Phosphatase 68 U/L (40-130); Aspartate Amino Transferase 21 U/L (0-40); Blood Urea Nitrogen 13 mg/dL (8-23); Calcium 8.8 mg/dL (8.5-10.5); Carbon Dioxide 27 mmol/L (22-29); Chloride 101 mmol/L (98-107); Creatinine Clr Calc Pharmacy 70.9479; Globulin 3.4 g/dL (1.3-4.6); Glomerular Filtration Rate 166.9 mL/min (90-130); Glucose 122 mg/dL (65-115); Osmolality Calculated 285 mOsm/kg (285-295); Sodium 137 mmol/L (136-145); Total Bilirubin 0.3 mg/dL (0.15-1.2); Total Protein 6.8 g/dL (6.6-8.7)
[2024-09-18] MEDS: nivolumab 240 MG in sodium chloride 0.9% 250 ML 548 MG IV (11:55)
[2024-09-18 12:27] VITALS: BP 92/58; PULSE 92; TEMP 36.7; O2SAT 96
[2024-10-02 11:40] LABS: Basophils # 0.1 10^3/uL (0.0-0.1); Basophils % 0.8 %; Eosinophils # 0.2 10^3/uL (0.0-0.8); Hematocrit 43.3 % (37-53); Lymphocytes % 15.8 %; Mean Corpuscular HGB Conc 32.3 g/dL (30-55); Mean Corpuscular Hemoglobin 28.7 pg (27-33); Mean Corpuscular Volume 88.7 fl (82-101); Mean Platelet Volume 8.9 fL (7.4-10.4); Monocytes # 0.5 10^3/uL (0.2-0.9); Monocytes % 8.2 %; Neutrophils # 4.58 10^3/uL (1.8-7.7); Neutrophils % 71.7 %; Nucleated Red Blood Cells % 0 %; Platelet Count 317 10^3/cmm (157-399); Red Blood Count 4.88 10^6/uL (3.85-5.65); Red Cell Distribution Width 16.5 % (12.1-15.1); White Blood Count 6.38 10^3/uL (3.29-11.43)
[2024-10-02 12:09] LABS: Alanine Aminotransferase 21 U/L (0-41); Albumin Level 3.4 g/dL (3.5-5.2); Alkaline Phosphatase 73 U/L (40-130); Anion Gap 13.2 (5-19); Aspartate Amino Transferase 25 U/L (0-40); Blood Urea Nitrogen 12 mg/dL (8-23); Calcium 8.6 mg/dL (8.5-10.5); Carbon Dioxide 29 mmol/L (22-29); Chloride 102 mmol/L (98-107); Creatinine Clr Calc Pharmacy 70.2826; Globulin 3.7 g/dL (1.3-4.6); Glomerular Filtration Rate 166.9 mL/min (90-130); Glucose 100 mg/dL (65-115); Osmolality Calculated 290 mOsm/kg (285-295); Potassium 4.2 mmol/L (3.5-5.1); Sodium 140 mmol/L (136-145); Thyroid Stimulating Hormone 1.52 uIU/mL (0.27-4.20); Total Bilirubin 0.4 mg/dL (0.15-1.2); Total Protein 7.1 g/dL (6.6-8.7)
[2024-10-02] MEDS: nivolumab 240 MG in sodium chloride 0.9% 250 ML 548 MG IV (13:01)
[2024-10-02 13:45] VITALS: BP 123/67; PULSE 67; RESP 18; TEMP 36.6; O2SAT 98
== END 2024-10-02 23:59 | disposition home or self-care (01) ==
PROVIDERS: Nurse Practitioner; PCP Family Medicine; Visit Provider Internal Medicine Medical Oncology
DX: Z53.9 Procedure and treatment not carried out, unspecified reason (principal); Z51.12 Encounter for antineoplastic immunotherapy; C34.11 Malignant neoplasm of upper lobe, right bronchus or lung; Z79.899 Other long term (current) drug therapy; Z79.52 Long term (current) use of systemic steroids
CPT/HCPCS: 80053; 84443; 85025; 96413; A4222; J7050; J9299

== ENCOUNTER 2024-10-30 13:30 | Oncology outpatient (recurring) (ONCR) | payer BC, SELFPAY ==
[2024-10-16 09:00] LABS: Basophils # 0.1 10^3/uL (0.0-0.1); Basophils % 0.5 %; Eosinophils # 0.1 10^3/uL (0.0-0.8); Eosinophils % 1.1 %; Hematocrit 40.4 % (37-53); Lymphocytes # 1.7 10^3/uL (0.8-4.8); Lymphocytes % 17.3 %; Mean Corpuscular HGB Conc 32.4 g/dL (30-55); Mean Corpuscular Volume 89.4 fl (82-101); Mean Platelet Volume 9.4 fL (7.4-10.4); Monocytes # 0.7 10^3/uL (0.2-0.9); Monocytes % 6.7 %; Neutrophils # 7.21 10^3/uL (1.8-7.7); Neutrophils % 73.8 %; Nucleated Red Blood Cells % 0 %; Platelet Count 270 10^3/cmm (157-399); Red Blood Count 4.52 10^6/uL (3.85-5.65); Red Cell Distribution Width 15.8 % (12.1-15.1); White Blood Count 9.78 10^3/uL (3.29-11.43)
[2024-10-16 09:25] LABS: Alanine Aminotransferase 24 U/L (0-41); Albumin Level 3.5 g/dL (3.5-5.2); Alkaline Phosphatase 71 U/L (40-130); Anion Gap 11.3 (5-19); Aspartate Amino Transferase 23 U/L (0-40); Blood Urea Nitrogen 13 mg/dL (8-23); Calcium 8.9 mg/dL (8.5-10.5); Carbon Dioxide 28 mmol/L (22-29); Chloride 98 mmol/L (98-107); Globulin 3.7 g/dL (1.3-4.6); Glomerular Filtration Rate 166.9 mL/min (90-130); Glucose 103 mg/dL (65-115); Osmolality Calculated 276 mOsm/kg (285-295); Potassium 4.3 mmol/L (3.5-5.1); Sodium 133 mmol/L (136-145); Thyroid Stimulating Hormone 1.02 uIU/mL (0.27-4.20); Total Bilirubin 0.5 mg/dL (0.15-1.2); Total Protein 7.2 g/dL (6.6-8.7)
[2024-10-16] MEDS: nivolumab 240 MG in sodium chloride 0.9% 250 ML 548 MG IV (11:47)
[2024-10-16 12:46] VITALS: BP 98/64; PULSE 72; RESP 16; TEMP 36.4; O2SAT 96
[2024-10-30 12:48] LABS: Basophils # 0.1 10^3/uL (0.0-0.1); Basophils % 0.7 %; Eosinophils # 0.2 10^3/uL (0.0-0.8); Hematocrit 41.8 % (37-53); Lymphocytes # 1.7 10^3/uL (0.8-4.8); Lymphocytes % 18.9 %; Mean Corpuscular Hemoglobin 29.7 pg (27-33); Mean Corpuscular Volume 89.9 fl (82-101); Mean Platelet Volume 9.5 fL (7.4-10.4); Monocytes # 0.5 10^3/uL (0.2-0.9); Monocytes % 5.6 %; Neutrophils # 6.63 10^3/uL (1.8-7.7); Neutrophils % 72.4 %; Nucleated Red Blood Cells % 0 %; Platelet Count 263 10^3/cmm (157-399); Red Blood Count 4.65 10^6/uL (3.85-5.65); Red Cell Distribution Width 15.8 % (12.1-15.1); White Blood Count 9.15 10^3/uL (3.29-11.43)
[2024-10-30 13:15] LABS: Alanine Aminotransferase 44 U/L (0-41); Albumin Level 3.8 g/dL (3.5-5.2); Alkaline Phosphatase 67 U/L (40-130); Anion Gap 12.9 (5-19); Aspartate Amino Transferase 33 U/L (0-40); Blood Urea Nitrogen 18 mg/dL (8-23); Calcium 8.6 mg/dL (8.5-10.5); Carbon Dioxide 31 mmol/L (22-29); Chloride 98 mmol/L (98-107); Creatinine Clr Calc Pharmacy 70.5052; Globulin 3.3 g/dL (1.3-4.6); Glomerular Filtration Rate 135.2 mL/min (90-130); Glucose 128 mg/dL (65-115); Osmolality Calculated 290 mOsm/kg (285-295); Potassium 3.9 mmol/L (3.5-5.1); Sodium 138 mmol/L (136-145); Thyroid Stimulating Hormone 0.75 uIU/mL (0.27-4.20); Total Bilirubin 0.7 mg/dL (0.15-1.2); Total Protein 7.1 g/dL (6.6-8.7)
[2024-10-30] MEDS: nivolumab 240 MG in sodium chloride 0.9% 250 ML 548 MG IV (15:36)
[2024-10-30 16:14] VITALS: BP 100/66; PULSE 69; RESP 16; TEMP 36.2; O2SAT 100
== END 2024-11-02 23:59 | disposition home or self-care (01) ==
PROVIDERS: Nurse Practitioner; PCP Family Medicine; Visit Provider Internal Medicine Medical Oncology
DX: C34.11 Malignant neoplasm of upper lobe, right bronchus or lung (principal); Z53.9 Procedure and treatment not carried out, unspecified reason; Z51.12 Encounter for antineoplastic immunotherapy; Z79.620 Long term (current) use of immunosuppressive biologic; Z79.899 Other long term (current) drug therapy
CPT/HCPCS: 80053; 84443; 85025; 96413; A4222; J7050; J9299

== ENCOUNTER 2024-11-27 08:30 | Oncology outpatient (recurring) (ONCR) | payer BC, SELFPAY ==
[2024-11-09] MEDS: iohexol 350 mg/mL 500 mL Btl (per mL) IV (13:29)
--- NOTE | 2024-11-09 14:00 | CTR_ITS ---
PROCEDURE INFORMATION: Exam: CT Chest With Contrast; Diagnostic Exam date and time: 11/09/2024 1:16 PM Age: 64 years old Clinical indication: Condition or disease; Other: Lung cancer; Prior surgery; Surgery date: 6+ months; Surgery type: --gb, hernia, cardiac stents, RT lung; Additional info: Lung cancer; Compare to previous, to be completed within 1 week TECHNIQUE: Imaging protocol: Diagnostic computed tomography of the chest with contrast. Radiation optimization: All CT scans at this facility use at least one of these dose optimization techniques: automated exposure control; mA and/or kV adjustment per patient size (includes targeted exams where dose is matched to clinical indication); or iterative reconstruction. Contrast material: OMNI 350; Contrast volume: 100 ml; Contrast route: INTRAVENOUS (IV); COMPARISON: PT PET skull to thigh SUBS [id number] 05/01/2024 8:29 AM RADIATION DOSE METRICS: Total DLP (mGy-cm): 468.55 FINDINGS: Trachea: Unremarkable. Lungs: Post surgical changes related to right upper lobectomy with associated atelectasis and parenchymal scarring in the anteromedial medial right lung. Similar findings were seen on the prior study. Peripheral fibrosis and subsegmental atelectasis bilaterally. Focal parenchymal scar at the right lung apex, not significantly changed. Few scattered calcified granulomata. Few tiny noncalcified nodules, the largest measuring 4 mm in the left upper lobe, not significantly changed. No new infiltrate or suspicious mass. Pleural spaces: No significant pleural effusion. No pneumothorax. Heart: Slight shift of the heart to the right related to volume loss on the right. No cardiomegaly. Mediastinal space: No pathologically enlarged lymph nodes. Lymph nodes: Unremarkable. No enlarged lymph nodes. Vasculature: The thoracic aorta is normal in caliber with mild atherosclerotic calcification. Bones/joints: Intact. No acute fracture. Mild degenerative changes involving the thoracic spine. Soft tissues: Unremarkable. Other findings: Abdominal structures discussed in CT abdomen pelvis below. PROCEDURE INFORMATION: Exam: CT Abdomen And Pelvis With Contrast Exam date and time: 11/09/2024 1:16 PM Age: 64 years old Clinical indication: Condition or disease; Other: Lung cancer; Prior surgery; Surgery date: 6+ months; Surgery type: --gb, hernia, cardiac stents, RT lung; Additional info: Lung cancer; Compare to previous, to be completed within 1 week TECHNIQUE: Imaging protocol: Computed tomography of the abdomen and pelvis with contrast. Radiation optimization: All CT scans at this facility use at least one of these dose optimization techniques: automated exposure control; mA and/or kV adjustment per patient size (includes targeted exams where dose is matched to clinical indication); or iterative reconstruction. Contrast material: OMNI 350; Contrast volume: 100 ml; Contrast route: INTRAVENOUS (IV); COMPARISON: PT PET skull to thigh SUBS [id number] 05/01/2024 8:29 AM RADIATION DOSE METRICS: Total DLP (mGy-cm): 468.55 FINDINGS: Lungs: Visualized lung bases are clear. Liver: Unremarkable. Gallbladder and biliary ducts: Gallbladder is surgically absent. Pancreas: Unremarkable. Spleen: Unremarkable. Adrenal glands: There is thickening of the adrenal glands bilaterally, similar in appearance compared to the prior PET-CT. Kidneys and ureters: Unremarkable. No significant hydronephrosis. Stomach and bowel: There is fluid and air within the stomach which is incompletely distended.There is a moderate amount of fecal material and air throughout the colon. There are mildly prominent fluid-filled small bowel loops in the right hemipelvis measuring 2.5 cm in maximum caliber which could be related to ileus. Appendix: Not identified with certainty. Intraperitoneal space: Unremarkable. No free air. No significant fluid collection. Vasculature: There is a moderate atherosclerotic calcification of the abdominal aorta and iliac arteries bilaterally. Lymph nodes: There is increased soft tissue density in the periaortic region. Increased FDG uptake was demonstrated in this region on the prior PET/CT. Urinary bladder: Unremarkable as visualized. Reproductive: Unremarkable as visualized. Bones/joints: There are mild degenerative changes involving the lumbar spine. There are posterior disc bulges from L2-L3 through L5-S1. There is at least moderate neural foraminal stenosis at L3-L4 and L4-L5. Soft tissues: There are surgical clips within the anterior lower pelvis. CT/CT chest abdpel w/*[id number] IMPRESSION: 1. Postoperative changes including right upper lobectomy with parenchymal fibrosis and scarring, similar in appearance compared to December 23, 2021. 2. Tiny noncalcified nodules, the largest in the left upper lobe measuring 4 mm, stable in appearance. 3. No new infiltrate or suspicious mass seen. IMPRESSION: 1. Moderate amount of fecal material and air throughout the colon with prominent fluid-filled distal small bowel loops. This may represent ileus. No significant bowel dilatation or evidence for obstruction at this time. Please correlate clinically. 2. Increased soft tissue density in the periaortic region. Increased FDG uptake was demonstrated in this region on the prior PET/CT suggesting lymphadenopathy. 3. Thickening of the bilateral adrenal glands, also seen on the recent PET/CT. 4. Status post cholecystectomy. 5. Postsurgical changes involving the lower pelvis.
[2024-11-13 09:59] LABS: Basophils # 0.1 10^3/uL (0.0-0.1); Basophils % 0.7 %; Eosinophils # 0.1 10^3/uL (0.0-0.8); Eosinophils % 1.2 %; Hematocrit 39.6 % (37-53); Lymphocytes # 1.8 10^3/uL (0.8-4.8); Lymphocytes % 19.3 %; Mean Corpuscular HGB Conc 32.6 g/dL (30-55); Mean Corpuscular Hemoglobin 30.3 pg (27-33); Mean Platelet Volume 9.7 fL (7.4-10.4); Monocytes # 0.6 10^3/uL (0.2-0.9); Monocytes % 6.3 %; Neutrophils # 6.61 10^3/uL (1.8-7.7); Neutrophils % 71.8 %; Nucleated Red Blood Cells % 0 %; Platelet Count 255 10^3/cmm (157-399); Red Blood Count 4.26 10^6/uL (3.85-5.65); Red Cell Distribution Width 16.2 % (12.1-15.1); White Blood Count 9.19 10^3/uL (3.29-11.43)
[2024-11-13 10:42] LABS: Alanine Aminotransferase 37 U/L (0-41); Albumin Level 3.6 g/dL (3.5-5.2); Alkaline Phosphatase 57 U/L (40-130); Aspartate Amino Transferase 26 U/L (0-40); Blood Urea Nitrogen 11 mg/dL (8-23); Calcium 8.7 mg/dL (8.5-10.5); Carbon Dioxide 27 mmol/L (22-29); Chloride 104 mmol/L (98-107); Creatinine Clr Calc Pharmacy 79.1419; Globulin 3.2 g/dL (1.3-4.6); Glomerular Filtration Rate 135.2 mL/min (90-130); Glucose 79 mg/dL (65-115); Osmolality Calculated 290 mOsm/kg (285-295); Sodium 141 mmol/L (136-145); Thyroid Stimulating Hormone 1.99 uIU/mL (0.27-4.20); Total Bilirubin 0.5 mg/dL (0.15-1.2); Total Protein 6.8 g/dL (6.6-8.7)
[2024-11-13] MEDS: nivolumab 240 MG in sodium chloride 0.9% 250 ML 548 MG IV (11:27)
[2024-11-13 12:15] VITALS: BP 98/65; PULSE 86; RESP 16; TEMP 36.4; O2SAT 96
[2024-11-27 08:38] LABS: Basophils # 0.1 10^3/uL (0.0-0.1); Basophils % 0.8 %; Eosinophils # 0.2 10^3/uL (0.0-0.8); Eosinophils % 2.3 %; Hematocrit 42.1 % (37-53); Lymphocytes # 1.3 10^3/uL (0.8-4.8); Lymphocytes % 17.9 %; Mean Corpuscular HGB Conc 32.3 g/dL (30-55); Mean Corpuscular Hemoglobin 29.9 pg (27-33); Mean Corpuscular Volume 92.5 fl (82-101); Mean Platelet Volume 9.1 fL (7.4-10.4); Monocytes # 0.8 10^3/uL (0.2-0.9); Monocytes % 10.3 %; Neutrophils # 5.05 10^3/uL (1.8-7.7); Neutrophils % 68.3 %; Nucleated Red Blood Cells % 0 %; Platelet Count 228 10^3/cmm (157-399); Red Blood Count 4.55 10^6/uL (3.85-5.65); Red Cell Distribution Width 16.1 % (12.1-15.1); White Blood Count 7.39 10^3/uL (3.29-11.43)
[2024-11-27] MEDS: nivolumab 240 MG in sodium chloride 0.9% 250 ML 548 MG IV (10:45)
[2024-11-27 11:35] VITALS: BP 121/78; PULSE 78; RESP 18; TEMP 36.6; O2SAT 97
== END 2024-11-30 23:59 | disposition home or self-care (01) ==
PROVIDERS: PCP Family Medicine; Visit Provider Internal Medicine Medical Oncology
DX: Z53.9 Procedure and treatment not carried out, unspecified reason; Z51.12 Encounter for antineoplastic immunotherapy; C34.11 Malignant neoplasm of upper lobe, right bronchus or lung; Z79.620 Long term (current) use of immunosuppressive biologic; Z79.899 Other long term (current) drug therapy
CPT/HCPCS: 71260; 74177; 80053; 84443; 85025; 96413; A4222; J7050; J9299

== ENCOUNTER 2024-12-25 08:05 | Oncology outpatient (recurring) (ONCR) | payer BC, SELFPAY ==
[2024-12-11 09:06] LABS: Basophils # 0.1 10^3/uL (0.0-0.1); Eosinophils # 0.2 10^3/uL (0.0-0.8); Hematocrit 39.9 % (37-53); Lymphocytes # 1.2 10^3/uL (0.8-4.8); Lymphocytes % 23.3 %; Mean Corpuscular HGB Conc 31.8 g/dL (30-55); Mean Corpuscular Hemoglobin 29.8 pg (27-33); Mean Corpuscular Volume 93.7 fl (82-101); Mean Platelet Volume 9.5 fL (7.4-10.4); Monocytes # 0.7 10^3/uL (0.2-0.9); Monocytes % 13.5 %; Neutrophils # 3.04 10^3/uL (1.8-7.7); Nucleated Red Blood Cells % 0 %; Platelet Count 236 10^3/cmm (157-399); Red Blood Count 4.26 10^6/uL (3.85-5.65); Red Cell Distribution Width 15.7 % (12.1-15.1); White Blood Count 5.24 10^3/uL (3.29-11.43)
[2024-12-11 09:31] LABS: Alanine Aminotransferase 22 U/L (0-41); Albumin Level 3.5 g/dL (3.5-5.2); Alkaline Phosphatase 73 U/L (40-130); Aspartate Amino Transferase 28 U/L (0-40); Blood Urea Nitrogen 15 mg/dL (8-23); Calcium 8.4 mg/dL (8.5-10.5); Carbon Dioxide 24 mmol/L (22-29); Chloride 108 mmol/L (98-107); Ferritin 172 ng/mL (30-400); Globulin 2.9 g/dL (1.3-4.6); Glomerular Filtration Rate 166.9 mL/min (90-130); Glucose 90 mg/dL (65-115); Iron 67 ug/dL (59-158); Magnesium 2.2 mg/dL (1.7-2.3); Osmolality Calculated 290 mOsm/kg (285-295); Percent Saturation 27.4 % (20-50); Sodium 140 mmol/L (136-145); Thyroid Stimulating Hormone 1.99 uIU/mL (0.27-4.20); Total Bilirubin 0.4 mg/dL (0.15-1.2); Total Iron Binding Capacity 244 mcg/dl; Total Protein 6.4 g/dL (6.6-8.7); Unsaturated Iron Binding 177 ug/dL (112-347)
[2024-12-11 09:33] LABS: Anion Gap 12.1 (5-19); Potassium 4.1 mmol/L (3.5-5.1)
[2024-12-11] MEDS: nivolumab 240 MG in sodium chloride 0.9% 250 ML 548 MG IV (10:06)
[2024-12-11 10:50] VITALS: BP 132/74; PULSE 66; RESP 16; TEMP 36.9; O2SAT 95
[2024-12-25 08:38] LABS: Basophils # 0.1 10^3/uL (0.0-0.1); Basophils % 1.3 %; Eosinophils # 0.3 10^3/uL (0.0-0.8); Eosinophils % 4.7 %; Hematocrit 40.6 % (37-53); Lymphocytes # 1.3 10^3/uL (0.8-4.8); Lymphocytes % 24.1 %; Mean Corpuscular Hemoglobin 29.9 pg (27-33); Mean Corpuscular Volume 93.3 fl (82-101); Mean Platelet Volume 9.8 fL (7.4-10.4); Monocytes # 0.7 10^3/uL (0.2-0.9); Monocytes % 12.7 %; Neutrophils # 3.06 10^3/uL (1.8-7.7); Nucleated Red Blood Cells % 0 %; Platelet Count 213 10^3/cmm (157-399); Red Blood Count 4.35 10^6/uL (3.85-5.65); Red Cell Distribution Width 15.1 % (12.1-15.1); White Blood Count 5.36 10^3/uL (3.29-11.43)
[2024-12-25 08:55] LABS: Alanine Aminotransferase 29 U/L (0-41); Albumin Level 3.7 g/dL (3.5-5.2); Alkaline Phosphatase 73 U/L (40-130); Blood Urea Nitrogen 10 mg/dL (8-23); Calcium 8.8 mg/dL (8.5-10.5); Carbon Dioxide 25 mmol/L (22-29); Chloride 105 mmol/L (98-107); Globulin 3.3 g/dL (1.3-4.6); Glomerular Filtration Rate 135.2 mL/min (90-130); Glucose 99 mg/dL (65-115); Osmolality Calculated 285 mOsm/kg (285-295); Sodium 138 mmol/L (136-145); Total Bilirubin 0.4 mg/dL (0.15-1.2)
[2024-12-25 09:06] LABS: Anion Gap 12.7 (5-19); Aspartate Amino Transferase 32 U/L (0-40); Potassium 4.7 mmol/L (3.5-5.1)
[2024-12-25 09:17] LABS: Thyroid Stimulating Hormone 2.97 uIU/mL (0.27-4.20)
[2024-12-25] MEDS: nivolumab 240 MG in sodium chloride 0.9% 250 ML 548 MG IV (09:46)
[2024-12-25 10:19] VITALS: BP 109/63; PULSE 58; RESP 18; TEMP 36.7; O2SAT 97
== END 2024-12-31 23:59 | disposition home or self-care (01) ==
PROVIDERS: Nurse Practitioner; PCP Family Medicine; Visit Provider Internal Medicine Medical Oncology
DX: Z51.12 Encounter for antineoplastic immunotherapy (principal); C34.11 Malignant neoplasm of upper lobe, right bronchus or lung; Z79.620 Long term (current) use of immunosuppressive biologic
CPT/HCPCS: 36415; 80053; 82728; 83540; 83550; 83735; 84443; 85025; 96413; A4222; J7050; J9299

== ENCOUNTER 2025-02-19 09:30 | Oncology outpatient (recurring) (ONCR) | payer BC, SELFPAY ==
[2025-02-05 10:25] LABS: Basophils % 0.8 %; Eosinophils # 0.4 10^3/uL (0.0-0.8); Hematocrit 40.9 % (37-53); Lymphocytes # 1.5 10^3/uL (0.8-4.8); Lymphocytes % 28.3 %; Mean Corpuscular HGB Conc 32.5 g/dL (30-55); Mean Corpuscular Hemoglobin 29.3 pg (27-33); Mean Corpuscular Volume 90.1 fl (82-101); Monocytes # 0.6 10^3/uL (0.2-0.9); Monocytes % 10.6 %; Neutrophils # 2.75 10^3/uL (1.8-7.7); Neutrophils % 52.1 %; Nucleated Red Blood Cells % 0 %; Platelet Count 219 10^3/cmm (157-399); Red Blood Count 4.54 10^6/uL (3.85-5.65); Red Cell Distribution Width 14.6 % (12.1-15.1); White Blood Count 5.27 10^3/uL (3.29-11.43)
[2025-02-05 10:51] LABS: Alanine Aminotransferase 29 U/L (0-41); Albumin Level 3.8 g/dL (3.5-5.2); Alkaline Phosphatase 101 U/L (40-130); Anion Gap 13.1 (5-19); Aspartate Amino Transferase 27 U/L (0-40); Blood Urea Nitrogen 11 mg/dL (8-23); Calcium 9.1 mg/dL (8.5-10.5); Carbon Dioxide 29 mmol/L (22-29); Chloride 102 mmol/L (98-107); Creatinine Clr Calc Pharmacy 79.1419; Globulin 3.8 g/dL (1.3-4.6); Glomerular Filtration Rate 135.2 mL/min (90-130); Glucose 84 mg/dL (65-115); Osmolality Calculated 289 mOsm/kg (285-295); Potassium 4.1 mmol/L (3.5-5.1); Sodium 140 mmol/L (136-145); Thyroid Stimulating Hormone 2.27 uIU/mL (0.27-4.20); Total Bilirubin 0.6 mg/dL (0.15-1.2); Total Protein 7.6 g/dL (6.6-8.7)
[2025-02-05] MEDS: nivolumab 240 MG in sodium chloride 0.9% 250 ML 548 MG IV (11:38)
[2025-02-05 12:21] VITALS: BP 97/68; PULSE 58; TEMP 37.2; O2SAT 96
[2025-02-19 09:32] LABS: Basophils % 0.6 %; Eosinophils # 0.2 10^3/uL (0.0-0.8); Eosinophils % 3.1 %; Hematocrit 40.1 % (37-53); Lymphocytes # 1.4 10^3/uL (0.8-4.8); Mean Corpuscular HGB Conc 32.2 g/dL (30-55); Mean Corpuscular Hemoglobin 28.9 pg (27-33); Mean Corpuscular Volume 89.9 fl (82-101); Mean Platelet Volume 9.7 fL (7.4-10.4); Monocytes # 0.6 10^3/uL (0.2-0.9); Monocytes % 9.9 %; Neutrophils # 4.13 10^3/uL (1.8-7.7); Neutrophils % 64.2 %; Nucleated Red Blood Cells % 0 %; Platelet Count 255 10^3/cmm (157-399); Red Blood Count 4.46 10^6/uL (3.85-5.65); Red Cell Distribution Width 14.9 % (12.1-15.1); White Blood Count 6.44 10^3/uL (3.29-11.43)
[2025-02-19 10:01] LABS: Alanine Aminotransferase 22 U/L (0-41); Albumin Level 3.8 g/dL (3.5-5.2); Alkaline Phosphatase 81 U/L (40-130); Aspartate Amino Transferase 28 U/L (0-40); Blood Urea Nitrogen 8 mg/dL (8-23); Calcium 8.9 mg/dL (8.5-10.5); Carbon Dioxide 27 mmol/L (22-29); Chloride 104 mmol/L (98-107); Creatinine Clr Calc Pharmacy 89.6333; Globulin 3.7 g/dL (1.3-4.6); Glomerular Filtration Rate 135.2 mL/min (90-130); Glucose 90 mg/dL (65-115); Osmolality Calculated 288 mOsm/kg (285-295); Sodium 140 mmol/L (136-145); Thyroid Stimulating Hormone 3.11 uIU/mL (0.27-4.20); Total Bilirubin 0.6 mg/dL (0.15-1.2); Total Protein 7.5 g/dL (6.6-8.7)
[2025-02-19] MEDS: nivolumab 240 MG in sodium chloride 0.9% 250 ML 548 MG IV (12:01)
[2025-02-19 12:47] VITALS: BP 129/73; PULSE 75; RESP 18; TEMP 36.8; O2SAT 100
== END 2025-03-02 23:59 | disposition home or self-care (01) ==
PROVIDERS: PCP Family Medicine; Visit Provider Internal Medicine Medical Oncology
DX: Z53.9 Procedure and treatment not carried out, unspecified reason; Z51.12 Encounter for antineoplastic immunotherapy; C34.11 Malignant neoplasm of upper lobe, right bronchus or lung; Z79.620 Long term (current) use of immunosuppressive biologic
CPT/HCPCS: 80053; 84443; 85025; 96413; A4222; J7050; J9299

== ENCOUNTER 2025-03-05 06:00 | Outpatient (CLI) | payer BC, SELFPAY | END 2025-03-05 06:01 | disposition home or self-care (01) | LOC: RAD 03-23 06:55 | PROVIDERS: PCP Family Medicine; Visit Provider Nurse Practitioner Family | DX: C34.11 Malignant neoplasm of upper lobe, right bronchus or lung (principal); R05.9 Cough, unspecified; M41.84 Other forms of scoliosis, thoracic region; M47.894 Other spondylosis, thoracic region; R91.8 Other nonspecific abnormal finding of lung field; G95.89 Other specified diseases of spinal cord; M48.04 Spinal stenosis, thoracic region | CPT/HCPCS: 71046; 72070 ==

== ENCOUNTER 2025-03-19 08:15 | Oncology outpatient (recurring) (ONCR) | payer BC, SELFPAY ==
[2025-03-05 07:37] LABS: Basophils # 0.1 10^3/uL (0.0-0.1); Basophils % 1.1 %; Eosinophils # 0.4 10^3/uL (0.0-0.8); Eosinophils % 6.7 %; Hematocrit 38.4 % (37-53); Lymphocytes # 1.5 10^3/uL (0.8-4.8); Lymphocytes % 23.4 %; Mean Corpuscular HGB Conc 32.8 g/dL (30-55); Mean Corpuscular Volume 88.5 fl (82-101); Mean Platelet Volume 10.3 fL (7.4-10.4); Monocytes % 14.7 %; Neutrophils # 3.53 10^3/uL (1.8-7.7); Neutrophils % 53.8 %; Nucleated Red Blood Cells % 0 %; Platelet Count 235 10^3/cmm (157-399); Red Blood Count 4.34 10^6/uL (3.85-5.65); Red Cell Distribution Width 14.7 % (12.1-15.1); White Blood Count 6.55 10^3/uL (3.29-11.43)
[2025-03-05 07:46] LABS: Alanine Aminotransferase 20 U/L (0-41); Albumin Level 3.7 g/dL (3.5-5.2); Alkaline Phosphatase 74 U/L (40-130); Anion Gap 13.1 (5-19); Aspartate Amino Transferase 28 U/L (0-40); Blood Urea Nitrogen 17 mg/dL (8-23); Calcium 8.5 mg/dL (8.5-10.5); Carbon Dioxide 25 mmol/L (22-29); Chloride 106 mmol/L (98-107); Globulin 3.6 g/dL (1.3-4.6); Glomerular Filtration Rate 134.8 mL/min (90-130); Glucose 104 mg/dL (65-115); Osmolality Calculated 292 mOsm/kg (285-295); Potassium 4.1 mmol/L (3.5-5.1); Sodium 140 mmol/L (136-145); Thyroid Stimulating Hormone 2.75 uIU/mL (0.27-4.20); Total Bilirubin 0.4 mg/dL (0.15-1.2); Total Protein 7.3 g/dL (6.6-8.7)
[2025-03-05] MEDS: nivolumab 240 MG in sodium chloride 0.9% 250 ML 548 MG IV (12:33)
[2025-03-05 13:20] VITALS: BP 132/72; PULSE 74; RESP 16; TEMP 36.3; O2SAT 95
--- NOTE | 2025-03-08 13:30 | PETR_ITS ---
PROCEDURE INFORMATION: Exam: PET/CT Skull Base to Mid-thigh Exam date and time: 03/08/2025 1:53 PM Age: 65 years old Clinical indication: Symptoms: Lung cancer (rul); Prior surgery; Surgery date: 6+ months; Surgery type: Partial lung removal / colon resection / gb / hernia / stents; Additional info: [facility] LABS AND CLINICAL REPORTS: Glucose: 111 mg/dl Treatment strategy for malignancy (PET staging): Restaging (PS) TECHNIQUE: Imaging protocol: Following at least four-hour fasting and following the injection of radiopharmaceutical, low dose CT images were obtained. Then, PET images were obtained. Attenuation corrected images were constructed using the CT scan. Fused images of PET and CT were reviewed. The standardized uptake values (SUV) reported below are maximum values within a region of interest, expressed in gm/ml. Exam includes orbital meatal line to mid-thigh. SUV normalization method: BodyWeight Radiopharmaceutical: 11.07 mCi F-18 FDG (Fluorodeoxyglucose), IV. Time of imaging post radiopharmaceutical administration: 47 minutes Injection site: Right Forearm COMPARISON: 1. CT chest abdpel w/*[id number] 11/09/2024 1:16 PM 2. PT PET skull to thigh SUBS [id number] 05/01/2024 8:29 AM FINDINGS: Brain: Visualized brain has normal physiologic uptake. Pharynx: No abnormal uptake. Larynx: No abnormal uptake. Lungs, pleura and trachea: Redemonstrated right upper lobectomy changes. Mild emphysematous change. Increased anteromedial right middle lobe consolidation with associated volume loss showing associated FDG uptake with SUV max 4.3 on axial image 120 (degree of consolidation similar to November 2024). Stable size 6 mm right lower lobe nodule on axial image 91 shows SUV max 2.3. Mild non FDG avid posterior right lower lobe superior segment pleuroparenchymal scarring. Increased size of a couple basal right lower lobe nodules, index measuring 6 x 4 mm on axial image 122, previously 5 x 3 mm. Heart: Normal physiologic uptake. Mediastinal space: No abnormal uptake. Liver: No abnormal uptake. Gallbladder and biliary ducts: No abnormal uptake. Prior cholecystectomy. Pancreas: No abnormal uptake. Spleen: No abnormal uptake. Adrenal glands: No abnormal uptake. Kidneys and ureters: Normal physiologic uptake. Stomach and bowel: No abnormal uptake. Vasculature: No abnormal uptake. Heavy systemic atherosclerotic calcification without aortic aneurysm. Lymph nodes: Mildly FDG avid mediastinal lymphadenopathy with index AP window node measuring 1.1 cm in the short axis on axial image 88 showing SUV max 4.4 and subcarinal node measuring 1.9 cm in the short axis showing SUV max 3.6. FDG avid left axillary lymphadenopathy with index node measuring 1.2 cm in the short axis on axial image 76 showing SUV max 12.1. Abnormal left axillary lymph nodes appear to maintain fatty catina and there is mild adjacent fat stranding. Mild FDG avid bilateral iliac lymphadenopathy, index left-sided node measuring 8 mm in the short axis on axial image 201 showing SUV max 5.6. Resolved left supraclavicular and upper abdominal lymphadenopathy. Skeleton: No abnormal uptake in the visualized axial and appendicular skeleton. Mild degenerative changes along the spine. Soft tissues: Ventral abdominal wall postsurgical scarring with associated low-level uptake. METRICS: Mediastinal blood pool: SUV mean 1.4 Liver uptake: SUV mean 1.8 PET/PET skull to thigh SUBS [id number] IMPRESSION: 1. Mixed treatment response with resolved left supraclavicular and upper abdominal lymphadenopathy but worsened/developed left axillary and bilateral iliac chain lymphadenopathy. 2. Increased anteromedial right middle lobe FDG avid consolidation may be inflammatory, malignancy not excluded. 3. Mildly FDG avid right lung pulmonary nodules (similar to slightly increased from April 2024) may be inflammatory, neoplastic not excluded.
[2025-03-19 08:45] LABS: Basophils # 0.1 10^3/uL (0.0-0.1); Basophils % 1.3 %; Eosinophils # 0.4 10^3/uL (0.0-0.8); Eosinophils % 7.2 %; Hematocrit 41.2 % (37-53); Lymphocytes # 1.7 10^3/uL (0.8-4.8); Lymphocytes % 30.5 %; Mean Corpuscular HGB Conc 32.8 g/dL (30-55); Mean Corpuscular Hemoglobin 28.7 pg (27-33); Mean Corpuscular Volume 87.5 fl (82-101); Mean Platelet Volume 10.1 fL (7.4-10.4); Monocytes # 0.6 10^3/uL (0.2-0.9); Monocytes % 11.5 %; Neutrophils # 2.67 10^3/uL (1.8-7.7); Neutrophils % 49.3 %; Nucleated Red Blood Cells % 0 %; Platelet Count 252 10^3/cmm (157-399); Red Blood Count 4.71 10^6/uL (3.85-5.65); Red Cell Distribution Width 15.2 % (12.1-15.1); White Blood Count 5.41 10^3/uL (3.29-11.43)
[2025-03-19 09:12] LABS: Alanine Aminotransferase 41 U/L (0-41); Albumin Level 3.9 g/dL (3.5-5.2); Alkaline Phosphatase 86 U/L (40-130); Anion Gap 12.6 (5-19); Aspartate Amino Transferase 41 U/L (0-40); Blood Urea Nitrogen 10 mg/dL (8-23); Calcium 9.1 mg/dL (8.5-10.5); Carbon Dioxide 27 mmol/L (22-29); Chloride 104 mmol/L (98-107); Creatinine Clr Calc Pharmacy 89.1376; Globulin 3.8 g/dL (1.3-4.6); Glomerular Filtration Rate 134.8 mL/min (90-130); Glucose 95 mg/dL (65-115); Osmolality Calculated 287 mOsm/kg (285-295); Potassium 4.6 mmol/L (3.5-5.1); Sodium 139 mmol/L (136-145); Thyroid Stimulating Hormone 2.93 uIU/mL (0.27-4.20); Total Protein 7.7 g/dL (6.6-8.7)
[2025-03-19] MEDS: nivolumab 240 MG in sodium chloride 0.9% 250 ML 548 MG IV (10:04)
[2025-03-19 10:51] VITALS: BP 124/75; PULSE 58; TEMP 36.4; O2SAT 99
[2025-03-19 11:33] LABS: Total Bilirubin 0.4 mg/dL (0.15-1.2)
== END 2025-04-01 23:59 | disposition home or self-care (01) ==
PROVIDERS: Nurse Practitioner; PCP Family Medicine; Visit Provider Nurse Practitioner Family
DX: Z51.12 Encounter for antineoplastic immunotherapy; C34.11 Malignant neoplasm of upper lobe, right bronchus or lung; Z79.620 Long term (current) use of immunosuppressive biologic; Z79.899 Other long term (current) drug therapy; Z53.9 Procedure and treatment not carried out, unspecified reason
CPT/HCPCS: 71046; 72070; 78815; 80053; 84443; 85025; 96413; A4222; A9552; J7050; J9299

== ENCOUNTER 2025-04-23 13:00 | Oncology outpatient (recurring) (ONCR) | payer BC, SELFPAY ==
[2025-04-02 08:30] LABS: Hematocrit 42.4 % (37-53); Hemoglobin 13.70 g/dL (11.27-16.99); Mean Corpuscular HGB Conc 32.3 g/dL (30-55); Mean Corpuscular Hemoglobin 28.5 pg (27-33); Mean Corpuscular Volume 88.1 fl (82-101); Nucleated Red Blood Cells % 0 %; Platelet Count 232 10^3/cmm (157-399); Red Blood Count 4.81 10^6/uL (3.85-5.65); White Blood Count 7.06 10^3/uL (3.29-11.43)
[2025-04-02 08:58] LABS: Alanine Aminotransferase 22 U/L (0-41); Albumin Level 3.9 g/dL (3.5-5.2); Alkaline Phosphatase 92 U/L (40-130); Anion Gap 14.6 (5-19); Aspartate Amino Transferase 26 U/L (0-40); Blood Urea Nitrogen 14 mg/dL (8-23); Calcium 9.2 mg/dL (8.5-10.5); Carbon Dioxide 26 mmol/L (22-29); Chloride 100 mmol/L (98-107); Creatinine Clr Calc Pharmacy 89.1376; Globulin 4.0 g/dL (1.3-4.6); Glucose 99 mg/dL (65-115); Osmolality Calculated 283 mOsm/kg (285-295); Potassium 4.6 mmol/L (3.5-5.1); Sodium 136 mmol/L (136-145); Thyroid Stimulating Hormone 3.31 uIU/mL (0.27-4.20); Total Protein 7.9 g/dL (6.6-8.7)
[2025-04-02] MEDS: nivolumab 240 MG in sodium chloride 0.9% 250 ML 548 MG IV (10:35)
[2025-04-02 11:16] VITALS: BP 116/67; PULSE 55; RESP 17; TEMP 36.7; O2SAT 100
[2025-04-23 12:48] LABS: Hematocrit 40.0 % (37-53); Hemoglobin 13.20 g/dL (11.27-16.99); Mean Corpuscular HGB Conc 33.0 g/dL (30-55); Mean Corpuscular Hemoglobin 28.4 pg (27-33); Mean Corpuscular Volume 86.2 fl (82-101); Nucleated Red Blood Cells % 0 %; Platelet Count 208 10^3/cmm (157-399); Red Blood Count 4.64 10^6/uL (3.85-5.65); White Blood Count 5.77 10^3/uL (3.29-11.43)
[2025-04-23 13:13] LABS: Alanine Aminotransferase 26 U/L (0-41); Albumin Level 3.9 g/dL (3.5-5.2); Alkaline Phosphatase 80 U/L (40-130); Anion Gap 16.2 (5-19); Aspartate Amino Transferase 31 U/L (0-40); Blood Urea Nitrogen 14 mg/dL (8-23); Calcium 8.9 mg/dL (8.5-10.5); Carbon Dioxide 24 mmol/L (22-29); Chloride 103 mmol/L (98-107); Creatinine Clr Calc Pharmacy 90.0698; Globulin 3.5 g/dL (1.3-4.6); Glucose 150 mg/dL (65-115); Osmolality Calculated 291 mOsm/kg (285-295); Potassium 4.2 mmol/L (3.5-5.1); Sodium 139 mmol/L (136-145); Thyroid Stimulating Hormone 1.86 uIU/mL (0.27-4.20); Total Protein 7.4 g/dL (6.6-8.7)
[2025-04-23] MEDS: nivolumab 240 MG in sodium chloride 0.9% 250 ML 548 MG IV (15:09)
[2025-04-23 15:19] VITALS: BP 107/63; PULSE 54; RESP 18; TEMP 37.1; O2SAT 98
== END 2025-05-02 23:59 | disposition home or self-care (01) ==
PROVIDERS: Internal Medicine Medical Oncology; PCP Family Medicine; Visit Provider Nurse Practitioner Family
DX: Z53.9 Procedure and treatment not carried out, unspecified reason (principal); Z51.12 Encounter for antineoplastic immunotherapy; C34.11 Malignant neoplasm of upper lobe, right bronchus or lung; Z79.620 Long term (current) use of immunosuppressive biologic; Z87.891 Personal history of nicotine dependence
CPT/HCPCS: 36415; 80053; 84443; 85025; 96413; A4222; J7050; J9299

== ENCOUNTER 2025-05-31 10:30 | Oncology outpatient (recurring) (ONCR) | payer BC, SELFPAY ==
[2025-05-07 07:58] LABS: Hematocrit 43.7 % (37-53); Hemoglobin 14.50 g/dL (11.27-16.99); Mean Corpuscular HGB Conc 33.2 g/dL (30-55); Mean Corpuscular Hemoglobin 28.5 pg (27-33); Mean Corpuscular Volume 86.0 fl (82-101); Nucleated Red Blood Cells % 0 %; Platelet Count 200 10^3/cmm (157-399); Red Blood Count 5.08 10^6/uL (3.85-5.65); White Blood Count 5.11 10^3/uL (3.29-11.43)
[2025-05-07 08:25] LABS: Alanine Aminotransferase 24 U/L (0-41); Albumin Level 4.0 g/dL (3.5-5.2); Alkaline Phosphatase 89 U/L (40-130); Aspartate Amino Transferase 38 U/L (0-40); Blood Urea Nitrogen 17 mg/dL (8-23); Calcium 9.1 mg/dL (8.5-10.5); Carbon Dioxide 25 mmol/L (22-29); Chloride 103 mmol/L (98-107); Creatinine Clr Calc Pharmacy 90.5359; Globulin 4.2 g/dL (1.3-4.6); Glucose 110 mg/dL (65-115); Osmolality Calculated 286 mOsm/kg (285-295); Sodium 137 mmol/L (136-145); Thyroid Stimulating Hormone 4.33 uIU/mL (0.27-4.20); Total Protein 8.2 g/dL (6.6-8.7)
[2025-05-07 08:27] LABS: Anion Gap 13.8 (5-19); Potassium 4.8 mmol/L (3.5-5.1)
[2025-05-07] MEDS: nivolumab 240 MG in sodium chloride 0.9% 250 ML 548 MG IV (08:59)
[2025-05-07 09:48] VITALS: BP 114/72; PULSE 53; TEMP 36.4; O2SAT 96
[2025-05-21 08:04] LABS: Hematocrit 42.9 % (37-53); Hemoglobin 14.30 g/dL (11.27-16.99); Mean Corpuscular HGB Conc 33.3 g/dL (30-55); Mean Corpuscular Hemoglobin 28.9 pg (27-33); Mean Corpuscular Volume 86.7 fl (82-101); Nucleated Red Blood Cells % 0 %; Platelet Count 235 10^3/cmm (157-399); Red Blood Count 4.95 10^6/uL (3.85-5.65); White Blood Count 6.80 10^3/uL (3.29-11.43)
[2025-05-21 08:32] LABS: Alanine Aminotransferase 24 U/L (0-41); Albumin Level 4.0 g/dL (3.5-5.2); Alkaline Phosphatase 78 U/L (40-130); Aspartate Amino Transferase 29 U/L (0-40); Blood Urea Nitrogen 11 mg/dL (8-23); Calcium 8.7 mg/dL (8.5-10.5); Carbon Dioxide 24 mmol/L (22-29); Chloride 104 mmol/L (98-107); Creatinine Clr Calc Pharmacy 90.5359; Globulin 3.2 g/dL (1.3-4.6); Glucose 105 mg/dL (65-115); Osmolality Calculated 284 mOsm/kg (285-295); Sodium 137 mmol/L (136-145); Thyroid Stimulating Hormone 3.80 uIU/mL (0.27-4.20); Total Protein 7.2 g/dL (6.6-8.7)
[2025-05-21 08:35] LABS: Anion Gap 13.6 (5-19); Potassium 4.6 mmol/L (3.5-5.1)
[2025-05-21] MEDS: nivolumab 240 MG in sodium chloride 0.9% 250 ML 548 MG IV (09:43)
[2025-05-21 10:26] VITALS: BP 109/69; PULSE 58; RESP 17; TEMP 36.2; O2SAT 96
--- NOTE | 2025-05-31 10:30 | PETR_ITS ---
PROCEDURE INFORMATION: Exam: PET/CT Skull Base to Mid-thigh Exam date and time: 05/31/2025 11:02 AM Age: 65 years old Clinical indication: Condition or disease; Primary cancer: Malignant neoplasn upper lobe RT lung; Additional info: Followup post treatment LABS AND CLINICAL REPORTS: Glucose: 89 mg/dl Treatment strategy for malignancy (PET staging): Restaging (PS) TECHNIQUE: Imaging protocol: Following at least four-hour fasting and following the injection of radiopharmaceutical, low dose CT images were obtained. Then, PET images were obtained. Attenuation corrected images were constructed using the CT scan. Fused images of PET and CT were reviewed. The standardized uptake values (SUV) reported below are maximum values within a region of interest, expressed in gm/ml. Exam includes orbital meatal line to mid-thigh. SUV normalization method: BodyWeight Radiopharmaceutical: 10.2 mCi F-18 FDG (Fluorodeoxyglucose), IV. Time of imaging post radiopharmaceutical administration: 43 minutes Injection site: LT FOREARM COMPARISON: PT PET skull to thigh [id number] [id number] 03/08/2025 1:53 PM FINDINGS: Brain: Visualized brain has normal physiologic uptake. Pharynx: No abnormal uptake. Larynx: No abnormal uptake. Lungs, pleura and trachea: Status post right upper lobectomy, with associated chronic postoperative changes. Decreased anterior right middle lobe consolidation, now with internal scarring and bronchiolectasis and resolved previous FDG avidity. FDG is now near background, maximum SUV 2.6 (previously 4.3). Scattered pulmonary nodules measuring up to 6 mm in the superior right lower lobe are unchanged compared to the prior study and do not demonstrate any significant increased FDG uptake. There is bilateral peripheral scarring and areas of architectural distortion. Otherwise no abnormal FDG uptake within the lung parenchyma. Heart: Normal physiologic uptake. Mediastinal space: No abnormal uptake. Liver: No abnormal uptake. Gallbladder and biliary ducts: No abnormal uptake. Status post cholecystectomy. Pancreas: No abnormal uptake. Spleen: No abnormal uptake. Adrenal glands: No abnormal uptake. Kidneys and ureters: Normal physiologic uptake. Stomach and bowel: No abnormal uptake. Vasculature: No abnormal uptake. Lymph nodes: Redemonstrated mild mediastinal FDG avid lymphadenopathy, with lymph nodes measuring up to 1.1 cm in the subcarinal and AP madhu stations, with maximum SUV of 3.6 and 3.2, respectively (previously 3.4 and 3.5). Redemonstrated left axillary and subpectoral ill-defined FDG avid lymphadenopathy. Lymph nodes appear minimally increased in size compared to the prior study, with increased FDG uptake, now maximum SUV 11.4 obtained from the largest 1.6 cm lymph node (previously the same lymph node had a maximum SUV of 9.7). Redemonstrated bilateral FDG avid iliac chain lymphadenopathy, [id number]. Some of the left-sided iliac lymph nodes appear slightly increased in size, now measuring up to 1.0 cm in short axis (previously 0.6 cm), with maximum SUV obtained from the largest lymph node of 10.8 (series 202, image 194), previously 5.6 obtained from the same lymph node. Skeleton: No abnormal uptake in the visualized axial and appendicular skeleton. Soft tissues: No abnormal uptake in the visualized head, neck, chest, abdomen, pelvis, and extremities. Postsurgical changes of the anterior abdominal wall. METRICS: Mediastinal blood pool: Mean SUV of 1.8 Liver uptake: Mean SUV of 2.2 PET/PET skull to thigh [id number] [id number] IMPRESSION: 1. Again noted mixed treatment response, with persistent left axillary, mediastinal and iliac chain lymphadenopathy. Overall, lymph nodes appear slightly increased in size with some demonstrating markedly increased FDG uptake. 2. Resolution of previously noted anteromedial right middle lobe FDG avid consolidation, now with residual scarring and bronchiolectasis. 3. Stable non FDG avid right-sided pulmonary nodules. Continued surveillance is recommended.
== END 2025-06-02 23:59 | disposition home or self-care (01) ==
PROVIDERS: Internal Medicine Medical Oncology; PCP Family Medicine; Visit Provider Nurse Practitioner
DX: R91.8 Other nonspecific abnormal finding of lung field; C34.11 Malignant neoplasm of upper lobe, right bronchus or lung; R59.0 Localized enlarged lymph nodes; J98.4 Other disorders of lung; J47.9 Bronchiectasis, uncomplicated; Z98.890 Other specified postprocedural states; Z90.49 Acquired absence of other specified parts of digestive tract; Z53.9 Procedure and treatment not carried out, unspecified reason
CPT/HCPCS: 78815; 80053; 84443; 85025; 96413; A4222; A9552; J7050; J9299

== ENCOUNTER 2025-07-02 07:45 | Oncology outpatient (recurring) (ONCR) | payer BC, SELFPAY ==
[2025-06-04 08:00] LABS: Hematocrit 44.0 % (37-53); Hemoglobin 14.30 g/dL (11.27-16.99); Mean Corpuscular HGB Conc 32.5 g/dL (30-55); Mean Corpuscular Hemoglobin 28.2 pg (27-33); Mean Corpuscular Volume 86.8 fl (82-101); Nucleated Red Blood Cells % 0 %; Platelet Count 210 10^3/cmm (157-399); Red Blood Count 5.07 10^6/uL (3.85-5.65); White Blood Count 6.20 10^3/uL (3.29-11.43)
[2025-06-04 09:28] LABS: Alanine Aminotransferase 24 U/L (0-41); Albumin Level 4.0 g/dL (3.5-5.2); Alkaline Phosphatase 72 U/L (40-130); Aspartate Amino Transferase 31 U/L (0-40); Blood Urea Nitrogen 13 mg/dL (8-23); Calcium 9.1 mg/dL (8.5-10.5); Carbon Dioxide 26 mmol/L (22-29); Chloride 101 mmol/L (98-107); Creatinine Clr Calc Pharmacy 91.2353; Globulin 3.7 g/dL (1.3-4.6); Glucose 113 mg/dL (65-115); Osmolality Calculated 283 mOsm/kg (285-295); Sodium 136 mmol/L (136-145); Thyroid Stimulating Hormone 3.20 uIU/mL (0.27-4.20); Total Protein 7.7 g/dL (6.6-8.7)
[2025-06-04 09:31] LABS: Anion Gap 13.6 (5-19); Potassium 4.6 mmol/L (3.5-5.1)
[2025-06-04] MEDS: nivolumab 240 MG in sodium chloride 0.9% 250 ML 548 MG IV (10:00)
[2025-06-04 10:54] VITALS: BP 117/72; PULSE 56; RESP 16; TEMP 36.4; O2SAT 99
[2025-06-18 08:23] LABS: Hematocrit 43.6 % (37-53); Hemoglobin 14.60 g/dL (11.27-16.99); Mean Corpuscular HGB Conc 33.5 g/dL (30-55); Mean Corpuscular Hemoglobin 29.0 pg (27-33); Mean Corpuscular Volume 86.5 fl (82-101); Nucleated Red Blood Cells % 0 %; Platelet Count 215 10^3/cmm (157-399); Red Blood Count 5.04 10^6/uL (3.85-5.65); White Blood Count 5.57 10^3/uL (3.29-11.43)
[2025-06-18 11:12] LABS: Alanine Aminotransferase 27 U/L (0-41); Albumin Level 4.1 g/dL (3.5-5.2); Alkaline Phosphatase 71 U/L (40-130); Anion Gap 15.8 (5-19); Aspartate Amino Transferase 29 U/L (0-40); Blood Urea Nitrogen 14 mg/dL (8-23); Calcium 8.8 mg/dL (8.5-10.5); Carbon Dioxide 24 mmol/L (22-29); Chloride 104 mmol/L (98-107); Creatinine Clr Calc Pharmacy 91.7014; Globulin 3.4 g/dL (1.3-4.6); Glucose 100 mg/dL (65-115); Osmolality Calculated 289 mOsm/kg (285-295); Potassium 4.8 mmol/L (3.5-5.1); Sodium 139 mmol/L (136-145); Thyroid Stimulating Hormone 2.17 uIU/mL (0.27-4.20); Total Protein 7.5 g/dL (6.6-8.7)
[2025-06-18] MEDS: nivolumab 240 MG in sodium chloride 0.9% 250 ML 548 MG IV (11:37)
[2025-06-18 12:15] VITALS: BP 124/75; PULSE 50; O2SAT 97
[2025-07-02 08:07] LABS: Hematocrit 44.4 % (37-53); Hemoglobin 14.70 g/dL (11.27-16.99); Mean Corpuscular HGB Conc 33.1 g/dL (30-55); Mean Corpuscular Hemoglobin 28.7 pg (27-33); Mean Corpuscular Volume 86.7 fl (82-101); Nucleated Red Blood Cells % 0 %; Platelet Count 214 10^3/cmm (157-399); Red Blood Count 5.12 10^6/uL (3.85-5.65); White Blood Count 6.70 10^3/uL (3.29-11.43)
[2025-07-02 08:28] LABS: Alanine Aminotransferase 30 U/L (0-41); Albumin Level 4.2 g/dL (3.5-5.2); Alkaline Phosphatase 82 U/L (40-130); Anion Gap 10.6 (5-19); Aspartate Amino Transferase 32 U/L (0-40); Blood Urea Nitrogen 18 mg/dL (8-23); Calcium 8.8 mg/dL (8.5-10.5); Carbon Dioxide 28 mmol/L (22-29); Chloride 105 mmol/L (98-107); Creatinine Clr Calc Pharmacy 91.7014; Globulin 3.6 g/dL (1.3-4.6); Glucose 100 mg/dL (65-115); Osmolality Calculated 290 mOsm/kg (285-295); Potassium 4.6 mmol/L (3.5-5.1); Sodium 139 mmol/L (136-145); Thyroid Stimulating Hormone 2.72 uIU/mL (0.27-4.20); Total Protein 7.8 g/dL (6.6-8.7)
[2025-07-02] MEDS: nivolumab 240 MG in sodium chloride 0.9% 250 ML 548 MG IV (09:28)
[2025-07-02 10:15] VITALS: BP 116/72; PULSE 55; RESP 16; TEMP 36.7; O2SAT 98
== END 2025-07-02 23:59 | disposition home or self-care (01) ==
PROVIDERS: Internal Medicine Medical Oncology; Nurse Practitioner; PCP Family Medicine; Visit Provider Nurse Practitioner
DX: Z53.9 Procedure and treatment not carried out, unspecified reason; Z51.12 Encounter for antineoplastic immunotherapy; C34.11 Malignant neoplasm of upper lobe, right bronchus or lung; Z79.620 Long term (current) use of immunosuppressive biologic
CPT/HCPCS: 36415; 80053; 84443; 85025; 96413; A4222; J7050; J9299

== ENCOUNTER 2025-07-30 07:45 | Oncology outpatient (recurring) (ONCR) | payer BC, SELFPAY ==
[2025-07-16 08:07] LABS: Hematocrit 41.3 % (37-53); Hemoglobin 13.90 g/dL (11.27-16.99); Mean Corpuscular HGB Conc 33.7 g/dL (30-55); Mean Corpuscular Hemoglobin 29.3 pg (27-33); Mean Corpuscular Volume 87.1 fl (82-101); Nucleated Red Blood Cells % 0 %; Platelet Count 195 10^3/cmm (157-399); Red Blood Count 4.74 10^6/uL (3.85-5.65); White Blood Count 6.74 10^3/uL (3.29-11.43)
[2025-07-16 08:39] LABS: Alanine Aminotransferase 28 U/L (0-41); Albumin Level 4.0 g/dL (3.5-5.2); Alkaline Phosphatase 70 U/L (40-130); Anion Gap 12.6 (5-19); Aspartate Amino Transferase 28 U/L (0-40); Blood Urea Nitrogen 17 mg/dL (8-23); Calcium 8.8 mg/dL (8.5-10.5); Carbon Dioxide 27 mmol/L (22-29); Chloride 106 mmol/L (98-107); Creatinine Clr Calc Pharmacy 92.8669; Globulin 2.9 g/dL (1.3-4.6); Glucose 120 mg/dL (65-115); Osmolality Calculated 295 mOsm/kg (285-295); Potassium 4.6 mmol/L (3.5-5.1); Sodium 141 mmol/L (136-145); Thyroid Stimulating Hormone 3.65 uIU/mL (0.27-4.20); Total Protein 6.9 g/dL (6.6-8.7)
[2025-07-16] MEDS: nivolumab 240 MG in sodium chloride 0.9% 250 ML 548 MG IV (09:29)
[2025-07-16 10:17] VITALS: BP 150/89; PULSE 63; RESP 16; TEMP 36.7; O2SAT 99
[2025-07-30 08:24] LABS: Hematocrit 41.8 % (37-53); Hemoglobin 13.90 g/dL (11.27-16.99); Mean Corpuscular HGB Conc 33.3 g/dL (30-55); Mean Corpuscular Hemoglobin 28.8 pg (27-33); Mean Corpuscular Volume 86.7 fl (82-101); Nucleated Red Blood Cells % 0 %; Platelet Count 218 10^3/cmm (157-399); Red Blood Count 4.82 10^6/uL (3.85-5.65); White Blood Count 6.19 10^3/uL (3.29-11.43)
[2025-07-30 09:29] LABS: Alanine Aminotransferase 28 U/L (0-41); Albumin Level 4.0 g/dL (3.5-5.2); Alkaline Phosphatase 78 U/L (40-130); Anion Gap 13.7 (5-19); Aspartate Amino Transferase 35 U/L (0-40); Blood Urea Nitrogen 10 mg/dL (8-23); Calcium 8.8 mg/dL (8.5-10.5); Carbon Dioxide 26 mmol/L (22-29); Chloride 105 mmol/L (98-107); Creatinine Clr Calc Pharmacy 92.8669; Globulin 3.1 g/dL (1.3-4.6); Glucose 92 mg/dL (65-115); Osmolality Calculated 289 mOsm/kg (285-295); Potassium 4.7 mmol/L (3.5-5.1); Sodium 140 mmol/L (136-145); Thyroid Stimulating Hormone 2.77 uIU/mL (0.27-4.20); Total Protein 7.1 g/dL (6.6-8.7)
[2025-07-30] MEDS: nivolumab 240 MG in sodium chloride 0.9% 250 ML 548 MG IV (09:35)
[2025-07-30 10:15] VITALS: BP 124/78; PULSE 84; RESP 17; TEMP 36.6; O2SAT 97
[2025-07-30 10:28] VITALS: BP 110/67; PULSE 76; RESP 18; TEMP 36.7; O2SAT 97
== END 2025-08-02 23:59 | disposition home or self-care (01) ==
PROVIDERS: Internal Medicine Medical Oncology; PCP Family Medicine; Visit Provider Nurse Practitioner
DX: Z51.12 Encounter for antineoplastic immunotherapy; C34.11 Malignant neoplasm of upper lobe, right bronchus or lung; Z79.620 Long term (current) use of immunosuppressive biologic; Z79.899 Other long term (current) drug therapy; Z53.9 Procedure and treatment not carried out, unspecified reason
CPT/HCPCS: 80053; 84443; 85025; 96365; 96413; A4222; J7050; J9299

== ENCOUNTER 2025-08-27 08:45 | Oncology outpatient (recurring) (ONCR) | payer BC, SELFPAY ==
[2025-08-13 08:43] LABS: Hematocrit 43.9 % (37-53); Hemoglobin 14.10 g/dL (11.27-16.99); Mean Corpuscular HGB Conc 32.1 g/dL (30-55); Mean Corpuscular Hemoglobin 28.7 pg (27-33); Mean Corpuscular Volume 89.2 fl (82-101); Nucleated Red Blood Cells % 0 %; Platelet Count 209 10^3/cmm (157-399); Red Blood Count 4.92 10^6/uL (3.85-5.65); White Blood Count 6.00 10^3/uL (3.29-11.43)
[2025-08-13 09:11] LABS: Alanine Aminotransferase 23 U/L (0-41); Albumin Level 3.8 g/dL (3.5-5.2); Alkaline Phosphatase 69 U/L (40-130); Anion Gap 13.3 (5-19); Aspartate Amino Transferase 27 U/L (0-40); Blood Urea Nitrogen 15 mg/dL (8-23); Calcium 8.6 mg/dL (8.5-10.5); Carbon Dioxide 23 mmol/L (22-29); Chloride 106 mmol/L (98-107); Globulin 3.6 g/dL (1.3-4.6); Glucose 101 mg/dL (65-115); Osmolality Calculated 287 mOsm/kg (285-295); Potassium 4.3 mmol/L (3.5-5.1); Sodium 138 mmol/L (136-145); Thyroid Stimulating Hormone 3.20 uIU/mL (0.27-4.20); Total Protein 7.4 g/dL (6.6-8.7)
[2025-08-13] MEDS: nivolumab 240 MG in sodium chloride 0.9% 250 ML 548 MG IV (10:22)
[2025-08-13 11:09] VITALS: BP 120/74; PULSE 56; RESP 17; TEMP 36.4; O2SAT 99
--- NOTE | 2025-08-23 09:00 | PETR_ITS ---
PROCEDURE INFORMATION: Exam: PET/CT Skull Base to Mid-thigh Exam date and time: 08/23/2025 9:14 AM Age: 65 years old Clinical indication: Condition or disease; Primary cancer: Lung cancer; Prior surgery; Surgery date: 6+ months; Surgery type: Gb, hernia, cardiac stents, RT lung; Additional info: Restaging LABS AND CLINICAL REPORTS: Glucose: 114 mg/dl Treatment strategy for malignancy (PET staging): Restaging (PS) TECHNIQUE: Imaging protocol: Following at least four-hour fasting and following the injection of radiopharmaceutical, low dose CT images were obtained. Then, PET images were obtained. Attenuation corrected images were constructed using the CT scan. Fused images of PET and CT were reviewed. The standardized uptake values (SUV) reported below are maximum values within a region of interest, expressed in gm/ml. Exam includes orbital meatal line to mid-thigh. SUV normalization method: BodyWeight Radiopharmaceutical: 11.9 mCi F-18 FDG (Fluorodeoxyglucose), IV. Time of imaging post radiopharmaceutical administration: 45 minutes Injection site: right ac COMPARISON: PT PET skull to thigh [id number] [id number] 05/31/2025 11:02 AM FINDINGS: Brain: Visualized brain has normal physiologic uptake. Pharynx: No abnormal uptake. Larynx: No abnormal uptake. Lungs, pleura and trachea: Status post right upper lobectomy with associated chronic postoperative changes. There is chronic scarring and bronchiectasis within the right middle lobe with unchanged FDG uptake of 2.6, near background. Mild peripheral scarring and fibrotic changes. Scattered subcentimeter pulmonary nodules are unchanged and not FDG avid. There is no new FDG uptake within the lung parenchyma. Heart: Normal physiologic uptake. Mediastinal space: No abnormal uptake. Liver: No abnormal uptake. Gallbladder and biliary ducts: No abnormal uptake. Status post cholecystectomy Pancreas: No abnormal uptake. Spleen: No abnormal uptake. Adrenal glands: New FDG avid nodules in bilateral adrenal glands, maximum SUV 5.4 on the right. Kidneys and ureters: Normal physiologic uptake. Stomach and bowel: No abnormal uptake. Vasculature: No abnormal uptake. Lymph nodes: Redemonstrated bulky FDG avid left axillary lymphadenopathy, maximum SUV 11.9 (previously 12.0). There is also redemonstrated mild increased FDG uptake within the mediastinal and left hilar lymph nodes, overall mildly increased in FDG uptake compared to the prior study (maximum SUV 7.7 obtained from a posterior mediastinal node, previously 5.6). There are also new small subcentimeter FDG avid left supraclavicular and lower neck lymph nodes, maximum SUV 13.9 obtained from the left supraclavicular region. Further mild increase in size of multiple FDG avid retroperitoneal lymph nodes, as well as scattered new upper abdominal/gastrohepatic FDG avid lymph nodes. Skeleton: No abnormal uptake in the visualized axial and appendicular skeleton. Soft tissues: No abnormal uptake in the visualized head, neck, chest, abdomen, pelvis, and extremities. Postsurgical changes of the anterior abdominal wall. Prior ventral hernia repair. METRICS: Mediastinal blood pool: Mean SUV of 1.8 Liver uptake: Mean SUV of 2.3 PET/PET skull to thigh [id number] [id number] IMPRESSION: Mixed treatment response with possible disease progression. There is persistent left axillary, mediastinal, iliac and retroperitoneal lymphadenopathy, with new FDG avid retroperitoneal and upper abdominal lymph nodes as well as new bilateral adrenal gland FDG avid nodules.
[2025-08-27 09:00] LABS: Hematocrit 42.8 % (37-53); Hemoglobin 14.20 g/dL (11.27-16.99); Mean Corpuscular HGB Conc 33.2 g/dL (30-55); Mean Corpuscular Hemoglobin 29.2 pg (27-33); Mean Corpuscular Volume 87.9 fl (82-101); Nucleated Red Blood Cells % 0 %; Platelet Count 218 10^3/cmm (157-399); Red Blood Count 4.87 10^6/uL (3.85-5.65); White Blood Count 6.34 10^3/uL (3.29-11.43)
[2025-08-27 09:30] LABS: Alanine Aminotransferase 24 U/L (0-41); Albumin Level 3.9 g/dL (3.5-5.2); Alkaline Phosphatase 69 U/L (40-130); Anion Gap 14.8 (5-19); Aspartate Amino Transferase 29 U/L (0-40); Blood Urea Nitrogen 13 mg/dL (8-23); Calcium 8.7 mg/dL (8.5-10.5); Carbon Dioxide 24 mmol/L (22-29); Chloride 107 mmol/L (98-107); Globulin 3.6 g/dL (1.3-4.6); Glucose 109 mg/dL (65-115); Osmolality Calculated 293 mOsm/kg (285-295); Potassium 4.8 mmol/L (3.5-5.1); Sodium 141 mmol/L (136-145); Thyroid Stimulating Hormone 2.76 uIU/mL (0.27-4.20); Total Protein 7.5 g/dL (6.6-8.7)
[2025-08-27 10:00] VITALS: BP 110/65; PULSE 51; RESP 17; TEMP 37.2; O2SAT 96
[2025-08-27] MEDS: nivolumab 240 MG in sodium chloride 0.9% 250 ML 548 MG IV (10:38)
[2025-08-27 11:13] VITALS: BP 117/71; PULSE 53; RESP 16; TEMP 36.9; O2SAT 98
== END 2025-09-01 23:59 | disposition home or self-care (01) ==
PROVIDERS: Internal Medicine Medical Oncology; Nurse Practitioner Family; PCP Family Medicine; Visit Provider Nurse Practitioner
DX: Z53.9 Procedure and treatment not carried out, unspecified reason; Z51.12 Encounter for antineoplastic immunotherapy; C34.11 Malignant neoplasm of upper lobe, right bronchus or lung; C77.0 Secondary and unspecified malignant neoplasm of lymph nodes of head, face and neck; Z87.891 Personal history of nicotine dependence; Z98.890 Other specified postprocedural states; Z79.899 Other long term (current) drug therapy
CPT/HCPCS: 36415; 78815; 80053; 84443; 85025; 96413; A4222; A9552; J7050; J9299

== ENCOUNTER 2025-09-24 09:00 | Oncology outpatient (recurring) (ONCR) | payer BC, SELFPAY ==
[2025-09-10 09:01] LABS: Hematocrit 44.8 % (37-53); Hemoglobin 14.60 g/dL (11.27-16.99); Mean Corpuscular HGB Conc 32.6 g/dL (30-55); Mean Corpuscular Hemoglobin 28.7 pg (27-33); Mean Corpuscular Volume 88.2 fl (82-101); Nucleated Red Blood Cells % 0 %; Platelet Count 211 10^3/cmm (157-399); Red Blood Count 5.08 10^6/uL (3.85-5.65); White Blood Count 6.80 10^3/uL (3.29-11.43)
[2025-09-10 09:30] LABS: Alanine Aminotransferase 27 U/L (0-41); Albumin Level 3.8 g/dL (3.5-5.2); Alkaline Phosphatase 74 U/L (40-130); Anion Gap 11.2 (5-19); Aspartate Amino Transferase 36 U/L (0-40); Blood Urea Nitrogen 10 mg/dL (8-23); Calcium 8.7 mg/dL (8.5-10.5); Carbon Dioxide 28 mmol/L (22-29); Chloride 103 mmol/L (98-107); Globulin 3.6 g/dL (1.3-4.6); Glucose 103 mg/dL (65-115); Osmolality Calculated 285 mOsm/kg (285-295); Potassium 4.2 mmol/L (3.5-5.1); Sodium 138 mmol/L (136-145); Thyroid Stimulating Hormone 2.90 uIU/mL (0.27-4.20); Total Protein 7.4 g/dL (6.6-8.7)
[2025-09-10] MEDS: nivolumab 240 MG in sodium chloride 0.9% 250 ML 548 MG IV (11:15)
[2025-09-10 11:55] VITALS: BP 112/68; PULSE 74; RESP 17; TEMP 36.6; O2SAT 97
[2025-09-24 09:22] LABS: Hematocrit 44.9 % (37-53); Hemoglobin 14.70 g/dL (11.27-16.99); Mean Corpuscular HGB Conc 32.7 g/dL (30-55); Mean Corpuscular Hemoglobin 29.1 pg (27-33); Mean Corpuscular Volume 88.9 fl (82-101); Nucleated Red Blood Cells % 0 %; Platelet Count 210 10^3/cmm (157-399); Red Blood Count 5.05 10^6/uL (3.85-5.65); White Blood Count 6.22 10^3/uL (3.29-11.43)
[2025-09-24 09:52] LABS: Alanine Aminotransferase 25 U/L (0-41); Albumin Level 3.9 g/dL (3.5-5.2); Alkaline Phosphatase 78 U/L (40-130); Anion Gap 12.5 (5-19); Aspartate Amino Transferase 33 U/L (0-40); Blood Urea Nitrogen 13 mg/dL (8-23); Calcium 8.8 mg/dL (8.5-10.5); Carbon Dioxide 27 mmol/L (22-29); Chloride 104 mmol/L (98-107); Globulin 3.1 g/dL (1.3-4.6); Glucose 102 mg/dL (65-115); Osmolality Calculated 288 mOsm/kg (285-295); Potassium 4.5 mmol/L (3.5-5.1); Sodium 139 mmol/L (136-145); Thyroid Stimulating Hormone 3.06 uIU/mL (0.27-4.20); Total Protein 7.0 g/dL (6.6-8.7)
--- NOTE | 2025-09-24 14:13 | PC.NURSE ---
No treatment today with IV dc'd with intracath intact.mm
== END 2025-10-02 23:59 | disposition home or self-care (01) ==
PROVIDERS: Nurse Practitioner Family; PCP Family Medicine; Visit Provider Internal Medicine Medical Oncology
DX: C34.11 Malignant neoplasm of upper lobe, right bronchus or lung; Z53.9 Procedure and treatment not carried out, unspecified reason
CPT/HCPCS: 36415; 80053; 84443; 85025; 96413; A4222; J7050; J9299